=== PATIENT | female | born 1970 | race Caucasian/White ===

== ENCOUNTER 2016-11-25 10:00 | Inpatient (IN) | payer BC ==
[~2016-11-25] VITALS: Ht 162.6 cm; Wt 73.2 kg
[~2016-11-25 10:00] MED LIST: /PANT40TA PO; AMIT10TA PO; CEPH500C PO; DOCU100C PO; FERR325T3 PO; FOLI1TAB86 PO; FURO40TA2 PO; GABA100C PO; K-TA1TAB PO; KEFL500C7 PO; LACTSOL16 PO; LASI40TA PO; LYRI200C PO; METF1000 PO; MIRA3350 PO; MORP-38 PO; MULT1TAB8 PO; MUPI2OI TOP; NORT25CA2 PO; OXYCO5TA PO; PERC5TAB6 PO; POTA-77 PO; SENN8.6T7 PO; SPIR100T PO; SPIR50TA2 PO; SULF1TAB72 PO; TEFL600I IV; TORS20TA2 PO; TRAD5TAB PO; TRAM50TA2 PO; ULTR50TA PO; ZOFR20TA PO; [UNRECOGNIZED DRUG - CODE] PO
[2016-11-25] MEDS ORDERED: PROPOFOL 200 MG/20 ML VIAL As Ordered ONE (10:28)
[2016-11-25] MEDS ORDERED: ONDANSETRON 4MG/2ML VIAL (J2405) As Ordered ONE (10:28)
[2016-11-25] MEDS ORDERED: MIDAZOLAM INJ 2 MG/2 ML VIAL (J2250) As Ordered ONE (10:28)
[2016-11-25] MEDS ORDERED: fentaNYL 100 MCG/2 ML INJECTION (J3010) As Ordered ONE (10:28)
[2016-11-25] MEDS ORDERED: VANCOMYCIN HCL 1,000 MG, VIAL MATE ADAPTER 1 EACH in D5W 250 ML IV ONE (10:30)
[2016-11-25] MEDS ORDERED: LIDOCAINE 2% INJ 100 MG/5 ML SDV (FOR ANES.) As Ordered ONE (10:32)
[2016-11-25] MEDS ORDERED: LIDOCAINE 1% SDV INJ 30 ML VIAL As Ordered ONE (10:51)
[2016-11-25] MEDS ORDERED: BUPIVACAINE HCL 0.5% 30 ML VIAL As Ordered ONE (10:52)
[2016-11-25] MEDS ORDERED: dexameTHASONE 4 MG/ML 1ML VIAL (J1100) As Ordered ONE (12:25)
[2016-11-25] MEDS ORDERED: ePHEDrine SULFATE 25 MG/5 ML(5MG/ML) SYRINGE As Ordered ONE (12:32)
--- NOTE | 2016-11-25 14:58 | HPEPDOC ---
Medical History and Physical Date of Admission 11/25/2016 History and Physical HISTORY AND PHYSICAL Date of admission: 11/25/2016 PCP: residency clinic Chief complaint: Amputation of foot HPI: 46-year-old female with diabetes mellitus type 2, alcoholic liver disease and hepatitis C causing cirrhosis and varices, diabetic neuropathy, history of paroxysmal SVT status post ablation in 2013, history of osteomyelitis of the left foot who is undergoing right transmetatarsal amputation with Dr. Sullivan. We have been contacted by Dr. Sullivan that he would like the patient admitted to the hospital following her surgery today. This amputation is being completed secondary to osteomyelitis of the right foot. The patient is seen postoperatively in the recovery room. She is tearful and upset about having to have her foot amputated, but otherwise feels well. Past medical history: Diabetes mellitus type 2, diabetic neuropathy, alcoholic liver disease and hepatitis C causing cirrhosis and varices, history of paroxysmal SVT status post ablation in 2013, history of MRSA osteomyelitis of the left foot Past surgical history: I&D of the left foot, BTL, cardiac ablation Family history: Father with lung cancer; mother, siblings, and children are alive and well Social history: The patient is and resides in [place]. She has 2 children. She quit drinking approximately 2 years ago, but was previously a heavy drinker. She smokes half a pack a day. She has a history of cocaine and IV heroin use, but none in the last several years. Allergies: No known drug allergies Review of systems: General: Negative for fever and chills Eyes: Negative for vision changes and ocular discharge ENT: Negative for sore throat and nose bleed Cardiovascular: Negative for chest pain and palpitations Respiratory: Negative for cough and shortness of breath GI: Negative for nausea, vomiting, diarrhea, constipation Musculoskeletal: Negative for neck and back pain Skin: Negative for rash Neuro: Negative for headache and dizziness Psych: Negative for suicidal ideation and depression Endocrine: Negative for polyuria : Negative for dysuria Heme: Negative for bruising and bleeding Home meds: See below Physical exam: Vital signs: Blood pressure 114/69, HR 82, temperature 98.7, O2 sat and 84% on 2 L, RR 16 Gen.: awake, alert, no acute distress Eyes: Extraocular movements intact, normal sclera ENT: Moist mucous membranes Cardiovascular: RRR, no murmurs rubs or gallops Lungs: clear to auscultation bilaterally, no rales, rhonchi, or wheeze Abdomen: Soft, NT/ND, normal BS Extremities: No peripheral edema on LLE, RLE is wrapped and splinted Neuro: alert and oriented 3, normal speech, no focal deficits Psych: tearful, disappointed about losing part of her foot Labs and radiology: Preoperative labs approximately 2 weeks ago were unremarkable. An A1c at that time was 5.9. Assessment and plan: 46-year-old female with diabetes mellitus type 2, alcoholic liver disease and hepatitis C causing cirrhosis and varices, diabetic neuropathy, history of paroxysmal SVT status post ablation in 2013, history of osteomyelitis of the left foot who is undergoing right transmetatarsal amputation with Dr. Sullivan secondary to osteomyelitis of the right foot. 1. Osteomyelitis of the right foot: Status post right transmetatarsal amputation with Dr. Sullivan today. I discussed the case with Dr. Sullivan, and he states that he will be managing antibiotics for this patient and working with Dr. Lancaster. 2. Diabetes mellitus type 2 with neuropathy: A1c 2 weeks ago was 5.9. We will use sliding scale insulin while in-house. We will hold home metformin, and we' ll consider restarting these once the patient has a chance to recover from her recent surgery. Continue home Lyrica for neuropathy. 3. Alcoholic liver disease and hepatitis C causing cirrhosis and varices: The patient follows with Dr. Lancaster for her hepatitis C and states that she is now s/ p treatment with no further evidence of presence of the virus. Continue home torsemide and spironolactone. DVT prophylaxis: Lovenox to begin tomorrow morning per my discussion with Dr. Sullivan; SCD on LLE tonight Dispo: admit as an inpatient to the service of Dr. Mallory CODE STATUS: DNI Vital Signs see above Laboratory Data Labs 24H Laboratory Tests 2 11/25/16 11:07: Bedside Glucose (Misc Panel) 99 FSBS Laboratory Tests Test 11/25/16 11:07 Range/Units Bedside Glucose (Misc Panel) 99 70-105 MG/DL Microbiology Microbiology 11/25/16 Wound Culture, Received Pending 11/25/16 Wound Culture, Received Pending Home Medications Scheduled (Multi Vitamin Daily) 1 Tab Tab 1 TAB PO DAILY Docusate Sod/Senna (Senna S 8.6-50 mg) 1 Tab Tab 3 TAB PO BID Metformin Hydrochloride (Metformin HCl) 1,000 Mg Tab 1,000 MG PO BID Morphine Sulfate (Morphine Sulfate ER) 15 Mg Tab 15 MG PO BID Oxycodone HCl (Oxycodone HCl) 5 Mg Tab 5 MG PO Q4H Pregabalin (Lyrica) 200 Mg Cap 600 MG PO BID Spironolactone (Spironolactone) 50 Mg Tab 50 MG PO DAILY Torsemide (Torsemide) 20 Mg Tab 60 MG PO DAILY Trimethoprim/Sulfamethoxazole (Sulfamethoxazole/Trimetho 400-80 mg) 1 Ea Tab 1 EA PO BID Scheduled PRN Tramadol HCl (Tramadol HCl) 50 Mg Tab 50 MG PO Q4H PRN PRN PAIN MAY TAKE 2 TABLETS IF NEEDED Allergies Coded Allergies: No Known Drug Allergy (Unverified Allergy, Unknown, 02/22/13) LUL VIEIRA Nov 25, 2016 14:58
[2016-11-25] MEDS ORDERED: ONDANSETRON 4MG/2ML VIAL (J2405) IV PRN ×2 (15:00)
[2016-11-25] MEDS ORDERED: fentaNYL 100 MCG/2 ML INJECTION (J3010) IV PRN (15:00)
[2016-11-25] MEDS ORDERED: PERCOCET 5MG/325MG TAB PO PRN ×2 (15:00)
[2016-11-25] MEDS ORDERED: GLUCOSE 4 GM CHEW TABLET PO PRN (15:00)
[2016-11-25] MEDS ORDERED: DEXTROSE 50% 50 ML SYRINGE IV PRN (15:00)
[2016-11-25] MEDS ORDERED: LR 1,000 ML IV SCH (15:00)
[2016-11-25] MEDS ORDERED: GLUCAGON FOR INJ 1 MG VIAL (J1610) SC PRN (15:00)
[2016-11-25] MEDS ORDERED: ONDANSETRON 4 MG TAB (S0181) PO PRN (15:00)
--- NOTE | 2016-11-25 15:54 | PHACANCOPD ---
PHARMACY VANCOMYCIN DOSING Pt Demographics Demographics Patient Age:46 , Weight: , Gender: female Adjusted Body Weight Date: 11/25/16, Adjusted Body Weight: Kg Events Past 24 Hours Events Past 24 Hours: NO: Change in CrCl, Dialysis, Diuretic Therapy, Elevation in WBC, Fever, Other, Pending Diagnostics, Pending Procedures Vancomycin Vancomycin Load Y/N: Yes Load Dose Date Time Vancomycin Load Dose: 1000MG Date: 11/25/16 Time: 1030 Vancomycin Dose Date: 11/25/16. Current Vancomycin Dose: [1GM Q12H@17] Intermittent Dosing?: No Labs Micro Microbiology 11/25/16 Wound Culture, Received Pending 11/25/16 Wound Culture, Received Pending Creatinine Clearance Date:11/25/16. Creatinine Clearance: . Assessment and Plan Maintaining Current Dose?: Yes Reason for dose change: No Dose Change Pharmacist Note Pharmacist Note Date: 11/25/16. Pharmacist note: This is a post operative patient's of Dr. Sullivan' s. He consulted us via written orders. She is a diabetic with a history of MRSA at our facility. She has been on Vancomycin here, and in February she was maintained on Vancomycin 1gm IV q12h. She received 1 gram of Vancomycin pre-op , then we started her on Vancomycin 1gm IV q12h at 1700. This will essentially serve as her load. There is no H&P at this time, and no baseline labs. Dr. Lancaster has also been consulted on this patient. We will continue to follow this patient and make adjustments as necessary. DANIA BOLIVAR PHARMACY Nov 25, 2016 15:54
[2016-11-25] MEDS: PERCOCET 5MG/325MG TAB PO PRN ×2 (15:57→19:55)
[2016-11-25 16:25] VITALS: BP 104/60
--- NOTE | 2016-11-25 16:43 | REP ---
Clinical: Osteomyelitis for partial amputation. Technique: Three intraoperative fluoroscopic images. Findings: Intraoperative fluoroscopic images demonstrate the patient to be status post amputation at the level of the metatarsal bases. Impression: Evidence for amputation at the proximal metatarsal base level. Signed by Damien Almonte MD 11/25/2016 04:35 P
[2016-11-25 17:00] VITALS: BP 111/60
[2016-11-25] MEDS: HumaLOG INSULIN (NovoLOG) PER UNIT SC SCH ×2 (17:48→20:57)
[2016-11-25] MEDS: VANCOMYCIN HCL 1,000 MG, VIAL MATE ADAPTER 1 EACH in D5W 250 ML IV SCH (17:48)
[2016-11-25 18:00] VITALS: BP 106/55
[2016-11-25] MEDS ORDERED: BACT800T5 PO (18:11)
[2016-11-25 19:00] VITALS: BP 117/62
[2016-11-25] MEDS: MORPHINE 2 MG/ML 1ML SYRINGE IV PRN ×3 (19:16→23:27)
--- NOTE | 2016-11-25 19:35 | RO ---
DATE OF PROCEDURE: 11/25/2016 PREPROCEDURE DIAGNOSES: Right foot diabetic ulceration stage 4 with osteomyelitis and fractured metatarsals 2, 3, and 4. POSTPROCEDURE DIAGNOSES: Right foot diabetic ulceration stage 4 with osteomyelitis and fractured metatarsals 2, 3, and 4. PROCEDURE: Right foot transmetatarsal amputation. SURGEON: Devon Sullivan DPM SUPERMARKET MANAGER: None. ANESTHESIA: General. HEMOSTASIS: Pneumatic ankle tourniquet. ESTIMATED BLOOD LOSS: 100 mL. SPECIMENS: Amputation bone and tissue for pathology and culture aerobic and anaerobic and clean margin first metatarsal base for aerobic and anaerobic and pathology. MATERIALS: #2-0 and #3-0 nylon. INJECTABLES: None. COMPLICATIONS: None. CONDITION: Stable. Dalila Augustin is a 46-year-old female who presents with ulceration and osteomyelitis to her right foot. She has had multiple infections and amputations including osteomyelitis noted in the 1st and 5th metatarsals with subsequent amputation of these. There have been several instances of non compliance with offloading where patient returned to her normal shoegear instead of wearing the dispensed post surgical shoe and crutches. Following the most recent amputation she sustained neuratrophic fractures of metatarsals 2, 3, and 4. Approximately one week lateral where was a probing ulceration to the 3rd metatarsal with bone exposed in the wound. Due to infection involved in the remaining central metatarsal, compound with the fracture of the metatarsals 2, 3, and 4, there was no reasonable alternative other than transmetatarsal amputation which patient has agreed to as treatment for this foot infection. The patients site and side were identified and marked in the preoperative holding area. Consent was reviewed and obtained. All risks, complications and alternatives to the procedure were explained to the patient in detail. Postoperative course was discussed with patient including potential for further infection, potential for need for further surgery following this procedure. Patient understands and agrees. DESCRIPTION OF PROCEDURE: The patient was brought to the operating room and placed on the operating room table in supine position. General anesthesia was delivered by the anesthesia team. A preoperative injection of 20 mL of 1:1 mixture of 1% lidocaine plain and 0.5% Marcaine plain was injected. Patient received vancomycin preoperatively. The right foot was prepped and draped in a normal sterile fashion. A tourniquet was applied and inflated at 250 mmHg. A fishmouth type incision was made surrounding the metatarsals leaving a longer plantar surface. This was carried through with a #10-blade down to bone. The soft-tissues overlying the bone were freed. The fractures were noted at the metatarsal sites 2, 3, and 4. A C-ARM was used to identify the level at which the amputation was to be performed. After remaining soft-tissue attachments were freed, the bones 2, 3, and 4 of the metatarsals were resected with a sagittal saw. This allowed disarticulation of the forefoot which was then sent for pathology and culture aerobic and anaerobic. The 3rd metatarsal bone was used for the culture which was the bone from the penetrating ulcer. Next, the remaining portion of the 1st metatarsal which had been previously resected was inspected and appeared soft. The distal portion of this bone was resected with sagittal saw and sent for pathology and culture. The remaining portion of the 5th metatarsal was inspected and this appeared to be in good condition. The remaining metatarsal bases of 2, 3, and 4 following the resection were also in good condition. Necrotic tissue and other soft-tissue was debrided free of the wound, at which time the tourniquet was deflated. Pressure was held for 5 minutes and then hemostasis was obtained using Bovie and sutures. A SONNY drain was inserted and the incision was closed using #2-0 and #3-0 nylon. Sterile dressings were applied. Patient was placed in a posterior splint. She was brought back to the postanesthesia care unit (PACU) with vital signs stable and neurovascular status intact. She will be admitted for antibiotics and postoperative monitoring. Will consult infectious disease regarding outpatient antibiotic therapy. Suspect will need 6 weeks therapy. JESUS
[2016-11-25 20:00] VITALS: BP 106/56
[2016-11-25 21:00] VITALS: BP 106/61
[2016-11-25] MEDS ORDERED: traMADol 50 MG TAB PO PRN (21:00)
[2016-11-25] MEDS ORDERED: PREGABALIN 100 MG CAP (LYRICA) PO SCH (21:00)
[2016-11-25] MEDS: SENOKOT S TAB PO SCH (21:23)
[2016-11-25] MEDS: PREGABALIN 100 MG CAP (LYRICA) PO SCH (21:24)
[2016-11-26] VITALS: BP 102/61
[2016-11-26] MEDS: PERCOCET 5MG/325MG TAB PO PRN ×5 (00:23→18:20)
[2016-11-26] MEDS: MORPHINE 2 MG/ML 1ML SYRINGE IV PRN ×5 (03:35→20:35)
[2016-11-26 04:00] VITALS: BP 98/56
[2016-11-26] MEDS: VANCOMYCIN HCL 1,000 MG, VIAL MATE ADAPTER 1 EACH in D5W 250 ML IV SCH ×2 (04:59→16:29)
[2016-11-26 07:23] LABS: BASO % 0.3 % (0.0-1.0); EOS # 0.1 K/mm3 (0.0-0.50); EOS % 1.9 % (0.0-3.0); LARGE UNSTAINED CELL # 0.2 K/mm3 (0.0-0.4); LARGE UNSTAINED CELL % 2.4 % (0.0-4.0); LYMPH # 1.8 K/mm3 (1.5-4.5); MEAN CORPUSCULAR HEMOGLOBIN 26.1 pg (27.0-33.0); MEAN CORPUSCULAR HGB CONC 32.7 g/dl (32.0-36.5); MEAN CORPUSCULAR VOLUME 79.8 fl (80.0-96.0); MONO # 0.5 K/mm3 (0.0-0.8); MONO % 7.9 % (0.0-5.0); NEUTROPHILS # 3.8 K/mm3 (1.8-7.7); NEUTROPHILS % 59.4 % (36.0-66.0); PLATELET COUNT, AUTOMATED 211 k/mm3 (150-450); RED CELL DISTRIBUTION WIDTH 17.3 % (11.5-14.5); WHITE BLOOD COUNT 6.4 K/mm3 (4.0-10.0)
[2016-11-26] MEDS: HumaLOG INSULIN (NovoLOG) PER UNIT SC SCH ×4 (07:30→20:49)
[2016-11-26 07:53] LABS: BLOOD UREA NITROGEN 10 MG/DL (7-18); CREATININE FOR GFR 0.59 MG/DL (0.55-1.02); GLUCOSE, FASTING 94 MG/DL (70-105)
[2016-11-26 07:54] LABS: ALBUMIN 2.8 GM/DL (3.2-5.2); ALBUMIN/GLOBULIN RATIO 0.76 (1.00-1.93); ALKALINE PHOSPHATASE 94 U/L (45-117); ALT/SGPT 12 U/L (12-78); ANION GAP 11 MEQ/L (8-16); AST/SGOT 11 U/L (15-37); BILIRUBIN,TOTAL 0.3 MG/DL (0.2-1.0); CARBON DIOXIDE LEVEL 23 MEQ/L (21-32); CHLORIDE LEVEL 109 MEQ/L (98-107); GLOMERULAR FILTRATION RATE > 60.0 (>58); MAGNESIUM LEVEL 2.2 MG/DL (1.8-2.4); SODIUM LEVEL 143 MEQ/L (136-145); TOTAL PROTEIN 6.5 GM/DL (6.4-8.2)
[2016-11-26 08:00] VITALS: BP 109/71
[2016-11-26] MEDS: SENOKOT S TAB PO SCH ×2 (08:09→20:37)
[2016-11-26] MEDS: PREGABALIN 100 MG CAP (LYRICA) PO SCH ×2 (08:09→20:38)
[2016-11-26] MEDS: ENOXAPARIN 40 MG/0.4 ML SYRINGE (J1650) SC SCH (08:10)
[2016-11-26] MEDS ORDERED: SPIRONOLACTONE 50 MG TAB PO SCH (09:00)
[2016-11-26] MEDS ORDERED: TORSEMIDE 20 MG TAB PO SCH (09:00)
--- NOTE | 2016-11-26 12:37 | IPN ---
DATE OF ADMISSION: 11/26/2016 The patient seen and examined at bedside. Her family is present. She denies overnight nausea, vomiting, fever, or chills. She states she is having pain requiring the morphine. She states that the morphine helps but is not lasting long enough. Vital signs are examined. The patient afebrile overnight. Laboratories done this morning. Hemoglobin is 9.2. White blood cell count is 6.4. Microbiology and pathology from the operating room are pending. The Sebas-Swann (SONNY) drain has 20 mL drainage from today. Lower extremity examination: Splint and dressing are clean, dry, and intact without signs of strike-through. Drain is in place with sanguinous drainage noted. The left foot is inspected. Small callus noted at the plantar 1st metatarsal. ASSESSMENT: This is a 46-year-old female, status post right transmetatarsal amputation. PLAN: Continue her vancomycin. Infectious disease has been consulted. Will appreciate their antibiotic recommendations. Await culture results and pathology results from operating room. Most likely, will plan to remove drain tomorrow and change dressings at that time. She is to remain nonweightbearing with splint and walker. Will follow.
[2016-11-26] MEDS: LACTIC ACID 12% LOTION 225 GM BTL TOP SCH (14:06)
[2016-11-26] MEDS ORDERED: MORPHINE 2 MG/ML 1ML SYRINGE IV PRN (15:00)
[2016-11-26 16:00] VITALS: BP 99/58
--- NOTE | 2016-11-26 16:34 | REP ---
Procedure: PICC line insertion with Mickey The procedure was performed under the direct supervision of Dr. Car. The risks and benefits of the procedure were explained to the patient and informed consent was obtained. The right basilic vein was localized using ultrasound guidance. The skin was prepped and draped in a sterile fashion. 2% lidocaine was used as a local anesthetic. Using ultrasound guidance the basilic vein was cannulated and a 0.018 guidewire was inserted and advanced to the SVC using fluoroscopic guidance. The needle was removed and a 4.5 Romanian dilator and peel-away sheath was inserted over the guide wire. A 4.5 Romanian single lumen catheter was cut to length of 40 cm. The dilator was removed and the catheter was inserted over the guide wire with the tip ending in the SVC. The peel-away sheath was removed and the catheter was flushed with heparinized saline as per Hospital protocol. The catheter was affixed to the skin and a sterile dressing was applied. The the patient tolerated the procedure well and there were no immediate complications. 24 seconds of fluoro time was utilized for this procedure. Reviewed by JARETT Pereira 11/26/2016 04:17 PSigned by Adama Car MD 11/26/2016 04:25 P
--- NOTE | 2016-11-26 16:58 | IPNPDOC ---
Text Note Date of Service The patient was seen on 11/26/16 at 16:53. NOTE Subjective: Patient states she feels much better. Denies any complaints. States pain is better controlled. Objective: Vitals: (see below) General: No acute distress, laying comfortably in bed. HEENT: Moist mucous membranes. Neck: No JVD or lymphadenopathy Cardiac: RRR, No murmurs Pulm: Clear to auscultation b/l. No wheezing, rhonchi Abd: NT/ND + BS Ext: No edema or cyanosis. Right lower extremity wrapped, with SONNY Leatha intact draining serosanguineous fluid. Distal pulses intact. Labs (see below) Assessment/Plan 1. Osteomyelitis of the right foot. Status post right transmetatarsal amputations by Dr. Sullivan 09/25/17. Dr. Lancaster has been consulted. Continue current antibiotics. 2. Diabetes mellitus- A1c 5.92 weeks ago per medical records. Sliding-scale counseling. On Lyrica for neuropathy. 3. History of hepatitis C- follows with Dr. Lancaster outpatient 4. 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 Patient is on torsemide as well as spironolactone, which were held given her relative hypotension. We'll reevaluate tomorrow. 5. History of paroxysmal SVT status post ablation 2013 CODE STATUS DNI. DVT prophy: Lovenox per Dr. Sullivan VS,Christina, I+O VS, Christina, I+O Laboratory Tests 11/26/16 06:38 Calcium Level 8.0 L, Aspartate Amino Transf (AST/SGOT) 11 L, Alanine Aminotransferase (ALT/SGPT) 12, Alkaline Phosphatase 94, Total Bilirubin 0.3, Total Protein 6.5, Albumin 2.8 L, Red Blood Count 3.50 L, Mean Corpuscular Volume 79.8 L, Mean Corpuscular Hemoglobin 26.1 L, Mean Corpuscular Hemoglobin Concent 32.7, Red Cell Distribution Width 17.3 H, Neutrophils (%) (Auto) 59.4, Lymphocytes (%) (Auto) 28.0, Monocytes (%) (Auto) 7.9 H, Eosinophils (%) (Auto) 1.9, Basophils (%) (Auto) 0.3, Neutrophils # (Auto) 3.8, Lymphocytes # (Auto) 1.8, Monocytes # (Auto) 0.5, Eosinophils # (Auto) 0.1, Basophils # (Auto) 0.0 Vital Signs Date Time Temp Pulse Resp B/P Pulse Ox O2 Delivery O2 Flow Rate FiO2 11/26/16 16:29 18 11/26/16 09:00 Room Air 11/26/16 08:00 97.2 75 109/71 98 11/25/16 14:16 2 I&O- Last 24 Hours up to 6 AM 11/26/16 05:59 Intake Total 2760 ml Output Total 1915 ml Balance 845 ml DARLENE SIMS MD Nov 26, 2016 16:58
[2016-11-26] MEDS: SODIUM CHLORIDE 0.9% INJ 10 ML SYR IV SCH (18:08)
[2016-11-26 20:00] VITALS: BP 94/52
[2016-11-26] MEDS: SODIUM CHLORIDE 0.9% INJ 10 ML SYR IV PRN (20:36)
[2016-11-27] VITALS: BP 102/58
[2016-11-27] MEDS: MORPHINE 2 MG/ML 1ML SYRINGE IV PRN ×6 (03:02→21:48)
[2016-11-27 04:00] VITALS: BP 104/64
[2016-11-27] MEDS: PERCOCET 5MG/325MG TAB PO PRN ×5 (04:02→22:28)
[2016-11-27] MEDS: VANCOMYCIN HCL 1,000 MG, VIAL MATE ADAPTER 1 EACH in D5W 250 ML IV SCH ×2 (04:15→16:18)
--- NOTE | 2016-11-27 04:59 | CR ---
DATE OF CONSULTATION: 11/26/2016 I was asked to consult by Dr. Sullivan for evaluation of chronic osteomyelitis of the right foot and need for intravenous (IV) antibiotic. Culture positive for methicillin-resistant Staphylococcus aureus (MRSA). HISTORY OF PRESENT ILLNESS: Dalila is a 46-year-old female with diabetes type 2 fairly well controlled on metformin, who has had chronic diabetic foot ulcers of the right foot for many months. She initially had an amputation of her toes where she has chronic MRSA infection, but she continued to develop new infections and developed an abscess on the ball of her foot with no resolution in spite of being on chronic Bactrim therapy for 2-3 months. The patient finally agreed to having a transmetatarsal amputation which she had yesterday. She denies any fever or chills. No nausea, vomiting or diarrhea. No abdominal pain. She states her diabetes has been very well controlled since she quit drinking any alcohol. PAST MEDICAL HISTORY: Significant for diabetes type 2 with diabetic neuropathy, alcoholic liver disease, quit drinking over a year ago. History of hepatitis C, treated and cured from hepatitis C with SVR12. History of paroxysmal supraventricular tachycardia status post ablation 2013, history of MRSA osteomyelitis of the left foot which was treated in February 2016 and resolved and now of the right foot. PAST SURGICAL HISTORY: Incision and drainage (I and D) of left foot, bilateral tubal ligation, cardiac ablation. The patient is also being evaluated for a dorsal column stimulator once her infections are completely healed. FAMILY HISTORY: Lung cancer in her father. SOCIAL HISTORY: She is . She lives in [place] with her . She has two children. She quit drinking over a year ago, but previously was a heavy drinker. She smokes half a pack a day. She has a history of cocaine and IV heroin use in the past. ALLERGIES: No known drug allergies. REVIEW OF SYSTEMS: She denies any fever or chills. No nausea, vomiting or diarrhea. No cough or shortness of breath. No neck pain, back pain. She does complain of significant pain in her foot at the site of the transmetatarsal amputation. MEDICATIONS: - morphine 2 mg IV every 2 as needed - Lovenox 40 mg subcutaneously daily - lactic acid applied to left foot callus - insulin sliding scale - Lyrica 300 mg by mouth twice a day - Senokot three tablets by mouth twice a day - Ultram 50 mg by mouth every 4 as needed - vancomycin 1 gram IV every 12 hours - Percocet 1-2 tablets every 4 as needed pain - Zofran 4 mg IV every 6 as needed for nausea LABORATORY DATA: White count on 11/26 was 6.4, hemoglobin 9.2, hematocrit 28, platelets 211. Sodium 143, potassium 4, chloride 109, bicarbonate 23, BUN 10, creatinine 0.59, glucose 94, calcium 8, magnesium 2.2, total bilirubin 0.3, AST 11, ALT 12, alkaline phosphatase 94, total protein 6.5, albumin 2.8. Wound culture from intraoperatively are still pending. Pathology on bone is pending. Foot x-ray done on 11/25 shows evidence of amputation at the proximal metatarsal base level. This was done postoperatively. Peripherally inserted central catheter (PICC) line was placed this afternoon at 4:15. IMPRESSION: This is a 46-year-old female with a history of chronic methicillin-resistant Staphylococcus aureus (MRSA) osteomyelitis and abscess of the right foot status post transmetatarsal amputation. Dr. Sullivan was concerned that the margins were not clear after he finished the surgery and therefore, recommended intravenous (IV) antibiotics for MRSA infection. The patient preoperatively had the right foot ulceration stage IV with osteomyelitis and fractured metatarsal of two, three and four. PLAN: PICC line was ordered and placed already today. The patient is currently on IV vancomycin 1 gram every 12 hours. Will obtain vancomycin level tomorrow. The patient has done IV antibiotics at home in the past last year and done well. Will consult patient and family services (PFS) for home IV antibiotics. The patient will probably need 4-6 weeks of IV antibiotic depending on her clinical improvement. Will follow her as an outpatient. She will have blood work done weekly including CBC basic, CRP.
[2016-11-27] MEDS: SODIUM CHLORIDE 0.9% INJ 10 ML SYR IV SCH ×2 (05:17→18:11)
[2016-11-27 05:58] LABS: BASO % 0.3 % (0.0-1.0); EOS # 0.2 K/mm3 (0.0-0.50); LARGE UNSTAINED CELL # 0.1 K/mm3 (0.0-0.4); LARGE UNSTAINED CELL % 2.2 % (0.0-4.0); LYMPH % 34.5 % (24.0-44.0); MEAN CORPUSCULAR HEMOGLOBIN 25.5 pg (27.0-33.0); MEAN CORPUSCULAR HGB CONC 31.4 g/dl (32.0-36.5); MEAN CORPUSCULAR VOLUME 81.2 fl (80.0-96.0); MONO # 0.4 K/mm3 (0.0-0.8); MONO % 6.4 % (0.0-5.0); NEUTROPHILS % 53.6 % (36.0-66.0); PLATELET COUNT, AUTOMATED 172 k/mm3 (150-450); RED CELL DISTRIBUTION WIDTH 17.4 % (11.5-14.5); WHITE BLOOD COUNT 5.7 K/mm3 (4.0-10.0)
[2016-11-27 06:17] LABS: ALBUMIN 2.8 GM/DL (3.2-5.2); ALBUMIN/GLOBULIN RATIO 0.76 (1.00-1.93); ALKALINE PHOSPHATASE 84 U/L (45-117); ALT/SGPT 11 U/L (12-78); ANION GAP 7 MEQ/L (8-16); AST/SGOT 13 U/L (15-37); BILIRUBIN,TOTAL 0.2 MG/DL (0.2-1.0); BLOOD UREA NITROGEN 7 MG/DL (7-18); CALCIUM LEVEL 7.5 MG/DL (8.5-10.1); CARBON DIOXIDE LEVEL 25 MEQ/L (21-32); CHLORIDE LEVEL 109 MEQ/L (98-107); CREATININE FOR GFR 0.61 MG/DL (0.55-1.02); GLOMERULAR FILTRATION RATE > 60.0 (>58); GLUCOSE, FASTING 101 MG/DL (70-105); MAGNESIUM LEVEL 2.1 MG/DL (1.8-2.4); SODIUM LEVEL 141 MEQ/L (136-145); TOTAL PROTEIN 6.5 GM/DL (6.4-8.2)
[2016-11-27 06:36] LABS: ERYTHROCYTE SEDIMENTATION RATE 71 mm/hr (0-20)
[2016-11-27 08:00] VITALS: BP 91/53
[2016-11-27] MEDS: PREGABALIN 100 MG CAP (LYRICA) PO SCH ×2 (09:40→21:22)
[2016-11-27] MEDS: SENOKOT S TAB PO SCH ×2 (09:40→21:22)
[2016-11-27] MEDS: ENOXAPARIN 40 MG/0.4 ML SYRINGE (J1650) SC SCH (09:41)
[2016-11-27] MEDS: HumaLOG INSULIN (NovoLOG) PER UNIT SC SCH ×4 (09:41→21:00)
[2016-11-27] MEDS: LACTIC ACID 12% LOTION 225 GM BTL TOP SCH (09:42)
[2016-11-27] MEDS: SODIUM CHLORIDE 0.9% INJ 10 ML SYR IV PRN ×2 (09:57→14:20)
[2016-11-27 12:00] VITALS: BP 95/50
--- NOTE | 2016-11-27 12:27 | IPN ---
DATE OF ADMISSION: 11/27/2016 Patient seen and examined at the bedside. States pain is a little bit better than last night. He denies other overnight complaints. No nausea, vomiting, fever or chills. Vitals are examined. T-max is 99.4 with vitals stable. LABS: White blood cell count 5.7, hemoglobin 8.9, erythrocyte sedimentation rate was 71. CRP was 3.96. The drain yesterday put out 60 mL, 10 as of this morning. Pathology results are pending. Culture results grew staphylococcus aureus and corynebacterium from the amputation bone which was the third metatarsal. The clean margin at this point is pending. She has received her PICC line. Lower extremity examination: The splint remain clean, dry and intact. ASSESSMENT: 46-year-old female status post transmetatarsal amputation right foot. PLAN: Will plan dressing change and drain removal tomorrow prior to discharge. Will plan discharge with PICC line with antibiotics according to Dr. Lancaster. Appreciate input. She is to remain non-weight bearing to the right foot. She states she has been doing well with a walker. Will plan followup in my office early next Friday or Friday.
--- NOTE | 2016-11-27 17:19 | IPNPDOC ---
Text Note Date of Service The patient was seen on 11/27/16 at 17:18. NOTE Subjective: Patient denies any complaints. No acute changes overnight. Objective: Vitals: (see below) General: No acute distress, laying comfortably in bed. HEENT: Moist mucous membranes. Neck: No JVD or lymphadenopathy Cardiac: RRR, No murmurs Pulm: Clear to auscultation b/l. No wheezing, rhonchi Abd: NT/ND + BS Ext: No edema or cyanosis. Right lower extremity wrapped, with SONNY Leatha intact draining serosanguineous fluid. Distal pulses intact. Labs (see below) Assessment/Plan 1. Osteomyelitis of the right foot. Status post right transmetatarsal amputations by Dr. Sullivan 09/25/17. Dr. Lancaster has been consulted. Continue current antibiotics. Start IVF NS as pt's BP is borderline. 2. Diabetes mellitus- A1c 5.9 two weeks ago per medical records. Sliding-scale insulin. On Lyrica for neuropathy. 3. History of hepatitis C- follows with Dr. Lancaster outpatient 4. 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 Patient is on torsemide as well as spironolactone, which were held given her relative hypotension. 5. History of paroxysmal SVT status post ablation 2013 CODE STATUS DNI. DVT prophy: Lovenox per Dr. Sullivan VS,Christina, I+O VS, Christina, I+O Laboratory Tests 11/27/16 05:32 Calcium Level 7.5 L, Aspartate Amino Transf (AST/SGOT) 13 L, Alanine Aminotransferase (ALT/SGPT) 11 L, Alkaline Phosphatase 84, Total Bilirubin 0.2, Total Protein 6.5, Albumin 2.8 L, Red Blood Count 3.49 L, Mean Corpuscular Volume 81.2, Mean Corpuscular Hemoglobin 25.5 L, Mean Corpuscular Hemoglobin Concent 31.4 L, Red Cell Distribution Width 17.4 H, Neutrophils (%) (Auto) 53.6 , Lymphocytes (%) (Auto) 34.5, Monocytes (%) (Auto) 6.4 H, Eosinophils (%) (Auto ) 3.0, Basophils (%) (Auto) 0.3, Neutrophils # (Auto) 3.0, Lymphocytes # (Auto) 2.0, Monocytes # (Auto) 0.4, Eosinophils # (Auto) 0.2, Basophils # (Auto) 0.0 Vital Signs Date Time Temp Pulse Resp B/P Pulse Ox O2 Delivery O2 Flow Rate FiO2 11/27/16 16:00 98.7 78 18 99 Room Air 11/27/16 14:28 95/50 2.0 I&O- Last 24 Hours up to 6 AM 11/27/16 06:00 Intake Total 2860 ml Output Total 1570 ml Balance 1290 ml DARLENE SIMS MD Nov 27, 2016 17:19
[2016-11-27] MEDS ORDERED: VANCOMYCIN HCL 500 MG in D5W MINI-BAG PLUS 100 ML IV ONE (18:00)
[2016-11-27] MEDS: NS 1,000 ML IV SCH (18:38)
[2016-11-27 20:00] VITALS: BP 95/50
--- NOTE | 2016-11-27 21:54 | PHACANCOPD ---
PHARMACY VANCOMYCIN DOSING Pt Demographics Demographics Patient Age:46 , Weight:73.180 , Gender: female Adjusted Body Weight Events Past 24 Hours Events Past 24 Hours: NO: Change in CrCl, Dialysis, Diuretic Therapy, Elevation in WBC, Fever, Other, Pending Diagnostics, Pending Procedures Vancomycin Vancomycin Target Ranges: 15-20 mcg/ml Vancomycin Load Y/N: Yes Load Dose Date Time Vancomycin Load Dose: 1500 MG Date: 11/27/16 Time: 17:00 Vancomycin Dose Date: 11/26/16. INCREASE Current Vancomycin Dose TO: [1GM Q8H@02:00 11/28/16] Intermittent Dosing?: No Labs Labs Laboratory Tests Test 11/27/16 16:16 Vancomycin Level Trough 11.2UG/ML (10.0-20.0) Laboratory Tests 11/27/16 05:32 Calcium Level 7.5, Aspartate Amino Transf (AST/SGOT) 13, Alanine Aminotransferase (ALT/SGPT) 11, Alkaline Phosphatase 84, Total Bilirubin 0.2, Total Protein 6.5, Albumin 2.8, Red Blood Count 3.49, Mean Corpuscular Volume 81.2, Mean Corpuscular Hemoglobin 25.5, Mean Corpuscular Hemoglobin Concent 31.4 , Red Cell Distribution Width 17.4, Neutrophils (%) (Auto) 53.6, Lymphocytes (% ) (Auto) 34.5, Monocytes (%) (Auto) 6.4, Eosinophils (%) (Auto) 3.0, Basophils ( %) (Auto) 0.3, Neutrophils # (Auto) 3.0, Lymphocytes # (Auto) 2.0, Monocytes # ( Auto) 0.4, Eosinophils # (Auto) 0.2, Basophils # (Auto) 0.0 Micro Microbiology 11/25/16 Wound Culture - Preliminary, Resulted Staphylococcus Aureus Corynebacterium Species 11/25/16 Wound Culture, Received Pending Creatinine Clearance Date:11/27/16. Creatinine Clearance: [>70 ml/min]. Assessment and Plan Maintaining Current Dose?: No Reason for dose change: Trough too low Pharmacist Note Pharmacist Note Date: 11/25/16. Pharm.D. note: This is a post operative patient's of Dr. Sullivan' chastity. He consulted us via written orders. She is a diabetic with a history of MRSA at our facility. She has been on Vancomycin here, and in February she was maintained on Vancomycin 1gm IV q12h. She received 1 gram of Vancomycin pre-op , then we started her on Vancomycin 1gm IV q12h at 1700 11/25/16. TODAY A VANCO TROUGH DRAWN PRIOR TO HER NEXT DOSE = 11.2 (GOAL 15-20 mcg/ml) SHE WAS GIVEN A 1.5GM VANCO RELOAD AT 17:00 WHICH WILL BE FOLLOWED BY A INCREASE TO VANCO 1GM IV Q8H STARTING AT 02:00 ON 11/28/16. A VANCO TR WILL BE DRAW AFTER SHE REACHES STEADY STATE. SANDRA, Pharm.D. MARYANNECOUNTS INCLUDE 234 BEDS AT THE [facility] Nov 27, 2016 21:54
[2016-11-28] VITALS: BP 93/50
[2016-11-28] MEDS: PERCOCET 5MG/325MG TAB PO PRN ×3 (02:11→11:27)
[2016-11-28] MEDS: VANCOMYCIN HCL 1,000 MG, VIAL MATE ADAPTER 1 EACH in D5W 250 ML IV SCH ×2 (02:17→10:23)
[2016-11-28 04:00] VITALS: BP 97/57
[2016-11-28] MEDS: MORPHINE 2 MG/ML 1ML SYRINGE IV PRN ×2 (04:16→08:48)
[2016-11-28] MEDS: SODIUM CHLORIDE 0.9% INJ 10 ML SYR IV SCH (06:00)
[2016-11-28 07:26] LABS: BASO % 0.3 % (0.0-1.0); EOS # 0.2 K/mm3 (0.0-0.50); EOS % 4.8 % (0.0-3.0); LARGE UNSTAINED CELL # 0.1 K/mm3 (0.0-0.4); LARGE UNSTAINED CELL % 2.6 % (0.0-4.0); LYMPH # 1.7 K/mm3 (1.5-4.5); LYMPH % 39.5 % (24.0-44.0); MEAN CORPUSCULAR VOLUME 81.3 fl (80.0-96.0); MONO # 0.3 K/mm3 (0.0-0.8); NEUTROPHILS % 46.8 % (36.0-66.0); PLATELET COUNT, AUTOMATED 169 k/mm3 (150-450); RED CELL DISTRIBUTION WIDTH 17.2 % (11.5-14.5); WHITE BLOOD COUNT 4.3 K/mm3 (4.0-10.0)
[2016-11-28] MEDS: HumaLOG INSULIN (NovoLOG) PER UNIT SC SCH ×2 (07:30→12:00)
[2016-11-28 07:52] LABS: ALBUMIN 2.6 GM/DL (3.2-5.2); ALBUMIN/GLOBULIN RATIO 0.74 (1.00-1.93); ALKALINE PHOSPHATASE 84 U/L (45-117); ALT/SGPT 13 U/L (12-78); ANION GAP 6 MEQ/L (8-16); AST/SGOT 15 U/L (15-37); BILIRUBIN,TOTAL 0.1 MG/DL (0.2-1.0); BLOOD UREA NITROGEN 7 MG/DL (7-18); CALCIUM LEVEL 7.9 MG/DL (8.5-10.1); CARBON DIOXIDE LEVEL 24 MEQ/L (21-32); CHLORIDE LEVEL 116 MEQ/L (98-107); GLOMERULAR FILTRATION RATE > 60.0 (>58); GLUCOSE, FASTING 85 MG/DL (70-105); POTASSIUM SERUM 4.1 MEQ/L (3.5-5.1); SODIUM LEVEL 146 MEQ/L (136-145); TOTAL PROTEIN 6.1 GM/DL (6.4-8.2)
[2016-11-28 08:00] VITALS: BP 106/63
[2016-11-28] MEDS: ENOXAPARIN 40 MG/0.4 ML SYRINGE (J1650) SC SCH (08:49)
[2016-11-28] MEDS: LACTIC ACID 12% LOTION 225 GM BTL TOP SCH (08:49)
[2016-11-28] MEDS: PREGABALIN 100 MG CAP (LYRICA) PO SCH (08:49)
[2016-11-28] MEDS: SENOKOT S TAB PO SCH (08:49)
[2016-11-28] MEDS: NS 1,000 ML IV SCH ×2 (10:23→11:28)
[2016-11-28] MEDS ORDERED: SODIUM CHLORIDE 0.9% 1000 ML IV ONE ×2 (11:00→13:30)
[2016-11-28 11:45] VITALS: BP 114/59
--- NOTE | 2016-11-28 12:47 | IPN ---
DATE: 11/28/2016 Patient seen and examined at bedside. States the pain is somewhat better today. Denies overnight complaints. Denies nausea, vomiting, fever or chills. Vital signs: Patient is afebrile overnight. Maximum temperature (Tmax) 97.6. Current blood pressure 97/57. Labs: White blood cell count is 4.3, hemoglobin is 8.9, CRP is 3.41. Microbiology: The bone culture from the third metatarsal grew methicillin-resistant Staphylococcus aureus and corynebacterium. The clean margin from the first metatarsal grew coag negative staphylococcus. Pathology report: The forefoot amputation showed diffuse fatty change and focal fibrosis. No acute osteomyelitis and the bone of the first metatarsal showed a portion of bone with fibrofatty bone marrow suggestive of post inflammatory changes, no acute osteomyelitis. Lower extremity exam: The dressings were removed. Sutures are all intact. There is no sign of dehiscence. There is good capillary refill time to the flat margins. The swelling is improved compared to preoperatively. ASSESSMENT: This is a 46-year-old female status post transmetatarsal amputation. PLAN: Drain was removed. Dressings reapplied. Continue splint and nonweightbearing. She is okay to be discharged today. She will be discharged on vancomycin via peripherally inserted central catheter (PICC). Appreciate infectious disease input. She will followup in my office early next week. Edited: 11/28/2016 1248 tali
[2016-11-28 14:00] VITALS: BP 106/64
[2016-11-28] MEDS: SODIUM CHLORIDE 0.9% INJ 10 ML SYR IV PRN (14:45)
--- NOTE | 2016-11-28 18:33 | DS.PDOC ---
Discharge Summary General Date of Admission Nov 25, 2016 at 14:53 Date of Discharge Nov 28, 2016 at 15:21 Attending Physician: DARLENE SIMS MD Specialist/Consultants Involve: Loc Lancaster MD Specialist/Consultants Involve Dr. Sullivan Discharge Summary PROCEDURES PERFORMED DURING STAY: Amputation of the right foot metatarsals COMPLICATIONS/CHIEF COMPLAINT: Acute Osteomyelitis Right Foot ADMISSION/DISCHARGE DIAGNOSES: 1. Osteomyelitis of the right foot, status post metatarsal amputation 2. Diabetes mellitus 3. MRSA on cultures 4. History of hepatitis C with alcohol and liver disease- cirrhosis 5. History of paroxysmal SVT status post ablation 2013 HISTORY OF PRESENT ILLNESS/HOSPITAL COURSE: This is a 46-year-old female past history of diabetes mellitus who presents and admitted for osteomyelitis of her right foot. The patient was sent here by Dr. Pathak, and subsequently had amputation of metatarsals of her right foot. Patient was started on vancomycin given her previous cultures of MRSA. Patient was evaluated by , with continuation of the vancomycin. Giving her need to have prolonged course of antibiotics for 4-6 weeks, he PICC line was placed. The patient remained afebrile. Her diuretics were held at this time given her recent infection. This will need to be addressed in the outpatient setting of her blood pressure remained stable. I do appreciate Dr. Lancaster's assistance in her care as well as outpatient follow- up with her antibiotic management. DISCHARGE MEDICATIONS: Please see below. ALLERGIES: Please see below. PHYSICAL EXAMINATION ON DISCHARGE: VITAL SIGNS: Please see below. General: No acute distress, laying comfortably in bed. HEENT: Moist mucous membranes. Neck: No JVD or lymphadenopathy Cardiac: RRR, No murmurs Pulm: Clear to auscultation b/l. No wheezing, rhonchi Abd: NT/ND + BS Ext: No edema or cyanosis. Right lower extremity wrapped, with SONNY drain was removed by Dr. Sullivan. Distal pulses intact. LABORATORY DATA: Please see below. VTE Prophylaxis ordered?: Yes DISCHARGE CONDITION: Stable DISPOSITION: 01 Home, Self-Care ACTIVITY: As tolerated DIET: As tolerated ITEMS TO FOLLOWUP ON OUTPATIENT: 1. Patient will be sick receiving vancomycin through a PICC line. Antibiotics as well as labs have been ordered and will be managed by . DISCHARGE PLAN AND INSTRUCTIONS: 1. Follow-up with , Dr. Sullivan, and PCP in 1-2 weeks. TIME SPENT ON DISCHARGE: Greater than 30 minutes. Vital Signs/I&Os Vital Signs Date Time Temp Pulse Resp B/P Pulse Ox O2 Delivery O2 Flow Rate FiO2 11/28/16 14:00 106/64 11/28/16 12:00 97.4 83 18 98 Room Air 11/27/16 14:28 2.0 I&O- Last 24 Hours up to 6 AM 11/28/16 05:59 Intake Total 1980 ml Output Total 2760 ml Balance -780 ml Laboratory Data Labs 24H Laboratory Tests 2 11/27/16 20:27: Bedside Glucose (Misc Panel) 112H 11/28/16 06:25: Blood Urea Nitrogen 7, Creatinine 0.60, Sodium Level 146H, Potassium Level 4.1, Chloride Level 116H, Carbon Dioxide Level 24, Calcium Level 7.9L, Aspartate Amino Transf (AST/SGOT) 15, Alanine Aminotransferase (ALT/SGPT) 13, Alkaline Phosphatase 84, Total Bilirubin 0.1L, Total Protein 6.1L, Albumin 2.6L, Albumin/ Globulin Ratio 0.74L, Anion Gap 6L, White Blood Count 4.3, Red Blood Count 3.42L , Hemoglobin 8.9L, Hematocrit 27.8L, Mean Corpuscular Volume 81.3, Mean Corpuscular Hemoglobin 26.0L, Mean Corpuscular Hemoglobin Concent 32.0, Red Cell Distribution Width 17.2H, Platelet Count 169, Neutrophils (%) (Auto) 46.8, Lymphocytes (%) (Auto) 39.5, Monocytes (%) (Auto) 6.0H, Eosinophils (%) (Auto) 4.8H, Basophils (%) (Auto) 0.3, Neutrophils # (Auto) 2.0, Lymphocytes # (Auto) 1.7, Monocytes # (Auto) 0.3, Eosinophils # (Auto) 0.2, Basophils # (Auto) 0.0, C -Reactive Protein, Quantitative 3.41H, Glomerular Filtration Rate > 60.0, Large Unclassified Cells # 0.1, Large Unclassified Cells % 2.6, Magnesium Level 2.0 11/28/16 11:31: Bedside Glucose (Misc Panel) 168H CBC/BMP Laboratory Tests 11/28/16 06:25 Calcium Level 7.9 L, Aspartate Amino Transf (AST/SGOT) 15, Alanine Aminotransferase (ALT/SGPT) 13, Alkaline Phosphatase 84, Total Bilirubin 0.1 L, Total Protein 6.1 L, Albumin 2.6 L, Red Blood Count 3.42 L, Mean Corpuscular Volume 81.3, Mean Corpuscular Hemoglobin 26.0 L, Mean Corpuscular Hemoglobin Concent 32.0, Red Cell Distribution Width 17.2 H, Neutrophils (%) (Auto) 46.8, Lymphocytes (%) (Auto) 39.5, Monocytes (%) (Auto) 6.0 H, Eosinophils (%) (Auto) 4.8 H, Basophils (%) (Auto) 0.3, Neutrophils # (Auto) 2.0, Lymphocytes # (Auto) 1.7, Monocytes # (Auto) 0.3, Eosinophils # (Auto) 0.2, Basophils # (Auto) 0.0 FSBS Laboratory Tests Test 11/27/16 20:27 11/28/16 11:31 Range/Units Bedside Glucose (Misc Panel) 112 168 70-105 MG/DL Microbiology Microbiology 11/25/16 Wound Culture - Final, Complete Staph.aureus Methicillin Resis Corynebacterium Species 11/25/16 Wound Culture - Final, Complete Staphylococcus Sp Coag Neg Medications Scheduled (Multi Vitamin Daily) 1 Tab Tab 1 TAB PO DAILY Docusate Sod/Senna (Senna S 8.6-50 mg) 1 Tab Tab 3 TAB PO BID Metformin Hydrochloride (Metformin HCl) 1,000 Mg Tab 1,000 MG PO BID Morphine Sulfate (Morphine Sulfate ER) 15 Mg Tab 15 MG PO BID Pregabalin (Lyrica) 200 Mg Cap 600 MG PO BID Trimethoprim/Sulfamethoxazole (Bactrim Ds 800-160 mg) 1 Tab Tab 1 TAB PO BID Scheduled PRN Oxycodone HCl (Oxycodone HCl) 5 Mg Tab 5 MG PO Q4H PRN PRN PAIN Tramadol HCl (Tramadol HCl) 50 Mg Tab 50 MG PO Q4H PRN PRN PAIN MAY TAKE 2 TABLETS IF NEEDED Allergies Coded Allergies: No Known Drug Allergy (Unverified Allergy, Unknown, 02/22/13) DARLENE SIMS MD Nov 28, 2016 18:33
== END 2016-11-28 15:21 | disposition home or self-care (01) | DRG 305 ==
LOC: M SDC 10:00 → M PED 14:53
PROVIDERS: ADMIT Hospitalist; ATTEND Hospitalist
PROC: 0Y6M0Z7 Detachment at Right Foot, Complete 4th Ray, Open Approach (ICD-10-PCS; 2016-11-25)
PROC: 0Y6M0Z6 Detachment at Right Foot, Complete 3rd Ray, Open Approach (ICD-10-PCS; 2016-11-25)
PROC: 0Y6M0Z5 Detachment at Right Foot, Complete 2nd Ray, Open Approach (ICD-10-PCS; principal; 2016-11-25 11:40)
PROC: 02HV33Z Insertion of Infusion Device into Superior Vena Cava, Percutaneous Approach (ICD-10-PCS; 2016-11-26)
DX: M86.471 Chronic osteomyelitis with draining sinus, right ankle and foot (principal); E11.621 Type 2 diabetes mellitus with foot ulcer; E11.40 Type 2 diabetes mellitus with diabetic neuropathy, unspecified; K70.30 Alcoholic cirrhosis of liver without ascites; I47.1 Supraventricular tachycardia; M84.477A Pathological fracture, right toe(s), initial encounter for fracture; L97.514 Non-pressure chronic ulcer of other part of right foot with necrosis of bone; B95.62 Methicillin resistant Staphylococcus aureus infection as the cause of diseases classified elsewhere; F10.21 Alcohol dependence, in remission; F17.210 Nicotine dependence, cigarettes, uncomplicated; Z79.84 Long term (current) use of oral hypoglycemic drugs; Z86.14 Personal history of Methicillin resistant Staphylococcus aureus infection; Z80.1 Family history of malignant neoplasm of trachea, bronchus and lung; Z98.51 Tubal ligation status; Z86.19 Personal history of other infectious and parasitic diseases; Z79.899 Other long term (current) drug therapy

== ENCOUNTER → 2016-12-02 | Outpatient (REF) | payer BC ==
[~2016-12-02] MED LIST changes: +BACT800T5 PO; +OXYC-517 PO; -OXYCO5TA PO
[2016-12-02 15:02] LABS: ANION GAP 8 MEQ/L (8-16); BLOOD UREA NITROGEN 14 MG/DL (7-18); CALCIUM LEVEL 8.9 MG/DL (8.5-10.1); CARBON DIOXIDE LEVEL 27 MEQ/L (21-32); CHLORIDE LEVEL 103 MEQ/L (98-107); CREATININE FOR GFR 0.88 MG/DL (0.55-1.02); GLOMERULAR FILTRATION RATE > 60.0 (>58); GLUCOSE, FASTING 85 MG/DL (70-105); POTASSIUM SERUM 4.5 MEQ/L (3.5-5.1); SODIUM LEVEL 138 MEQ/L (136-145)
[2016-12-02 15:10] LABS: BASO % 0.2 % (0.0-1.0); EOS # 0.1 K/mm3 (0.0-0.50); EOS % 2.1 % (0.0-3.0); LARGE UNSTAINED CELL # 0.1 K/mm3 (0.0-0.4); LARGE UNSTAINED CELL % 1.6 % (0.0-4.0); LYMPH # 2.1 K/mm3 (1.5-4.5); LYMPH % 38.4 % (24.0-44.0); MEAN CORPUSCULAR HEMOGLOBIN 25.1 pg (27.0-33.0); MEAN CORPUSCULAR HGB CONC 31.4 g/dl (32.0-36.5); MEAN CORPUSCULAR VOLUME 79.9 fl (80.0-96.0); MONO # 0.3 K/mm3 (0.0-0.8); MONO % 6.3 % (0.0-5.0); NEUTROPHILS # 2.8 K/mm3 (1.8-7.7); NEUTROPHILS % 51.5 % (36.0-66.0); PLATELET COUNT, AUTOMATED 237 k/mm3 (150-450); RED CELL DISTRIBUTION WIDTH 17.2 % (11.5-14.5); WHITE BLOOD COUNT 5.5 K/mm3 (4.0-10.0)
== END ==
LOC: M LAB REF 13:06
PROVIDERS: ATTEND Internal Medicine Infectious Disease
DX: M86.8X7 Other osteomyelitis, ankle and foot (principal); B95.62 Methicillin resistant Staphylococcus aureus infection as the cause of diseases classified elsewhere

== ENCOUNTER → 2016-12-09 | Outpatient (REF) | payer BC ==
[2016-12-09 13:58] LABS: BASO % 0.4 % (0.0-1.0); EOS # 0.2 K/mm3 (0.0-0.50); LARGE UNSTAINED CELL # 0.1 K/mm3 (0.0-0.4); LARGE UNSTAINED CELL % 1.3 % (0.0-4.0); LYMPH # 1.5 K/mm3 (1.5-4.5); LYMPH % 18.2 % (24.0-44.0); MEAN CORPUSCULAR HEMOGLOBIN 25.4 pg (27.0-33.0); MEAN CORPUSCULAR VOLUME 79.3 fl (80.0-96.0); MONO # 0.6 K/mm3 (0.0-0.8); MONO % 7.5 % (0.0-5.0); NEUTROPHILS % 70.6 % (36.0-66.0); PLATELET COUNT, AUTOMATED 273 k/mm3 (150-450); RED CELL DISTRIBUTION WIDTH 16.9 % (11.5-14.5); WHITE BLOOD COUNT 8.4 K/mm3 (4.0-10.0)
[2016-12-09 14:37] LABS: ANION GAP 8 MEQ/L (8-16); BLOOD UREA NITROGEN 22 MG/DL (7-18); CALCIUM LEVEL 8.6 MG/DL (8.5-10.1); CARBON DIOXIDE LEVEL 26 MEQ/L (21-32); CHLORIDE LEVEL 106 MEQ/L (98-107); CREATININE FOR GFR 0.88 MG/DL (0.55-1.02); GLOMERULAR FILTRATION RATE > 60.0 (>58); GLUCOSE, FASTING 117 MG/DL (70-105); POTASSIUM SERUM 4.3 MEQ/L (3.5-5.1); SODIUM LEVEL 140 MEQ/L (136-145)
== END ==
LOC: M LAB REF 13:41
PROVIDERS: ATTEND Internal Medicine Infectious Disease
DX: M86.8X7 Other osteomyelitis, ankle and foot (principal); B95.62 Methicillin resistant Staphylococcus aureus infection as the cause of diseases classified elsewhere

== ENCOUNTER → 2016-12-13 | Outpatient (CLI) | payer BC ==
--- NOTE | 2016-12-23 00:29 | ECWPNPC ---
PATIENT NAME: ESTER DAMICO : 1970 GENDER: FEMALE VISIT DATE: 12/13/2016 DISCHARGE DATE: 12/13/16 1139 VISIT LOCKED DATE TIME: PHYSICIAN: HI THOMAS RESOURCE: HI THOMAS REASON FOR APPOINTMENT 1. FOOT PAIN HISTORY OF PRESENT ILLNESS HISTORY OF PRESENT ILLNESS: PAIN THE PATIENT DESCRIBES THE PAIN... 45 YEAR OLD FEMALE PATIENT WITH HISTORY OF CHRONIC FOOT PAIN. PATIENT DESCRIBES THE PAIN THROBBING AND FEELING SQUISHY WITH A PAIN SCORE OF 8/10. PATIENT IS CURRENTLY USING MORPHINE SULPHATE, GABAPENTIN, AND LYRICA TO HELP WITH THE PAIN BUT STATES THAT THE MEDICATION DOES NOT HELP ENOUGH. MRS. DAMICO STATES THAT HER FEET CONSTANTLY HURT AND SHE HAS YET TO FIND SOMETHING THAT HELPS WITH THE PAIN. PATIENT RECENTLY HAS PART OF THE FOOT AMPUTATED DUE TO IT NOT HEALING. MRS. DAMICO WOULD LIKE TO PROCEED WITH THE DCS TRIAL AFTER HER FOOT HAS HEALED. PATIENT DENIES UNEXPLAINABLE WEIGHT LOSS, FEVER, CHILLS, NEW CHANGES ON HER URINARY OR BOWEL CONTROL. FALL RISK SCREENING: SCREENING :NO FALLS IN THE PAST YEAR CURRENT MEDICATIONS TAKING VANCOMYCIN HCL 1000 MG SOLUTION RECONSTITUTED ONE APPLICATION INTRAVENOUS TWICE DAILY TAKING METFORMIN HCL 1000 MG TABLET 1 TABLET WITH MEALS ORALLY TWICE A DAY TAKING MIRALAX 1 PACKET 1 PACKET MIXED WITH 8 OUNCES OF FLUID ORALLY TWICE DAILY NEEDED TAKING SENNA S 8.6-50 MG TABLET 4-5 TABLETS ORALLY TWICE DAILY TAKING MORPHINE SULFATE ER 15 MG TABLET EXTENDED RELEASE 1 TABLET ORALLY EVERY 12 HRS MDD=2 PAIN CENTER TAKING MULTIVITAMINS VITAMIN CAPSULE 1 TAB(S) ORALLY DAILY TAKING TRAMADOL HCL 50 MG TABLET 1-2 TABLET NEEDED ORALLY EVERY 6 HRS (MDD:6) TAKING OXYCODONE-ACETAMINOPHEN 5-325 MG TABLET 1 TABLET NEEDED ORALLY EVERY 6 HRS, NOTES: DR CHAIDEZ MDD # 12 TAKING LYRICA 300 MG CAPSULE 1 CAPSULE ORALLY TWICE A DAY TAKING SPIRONOLACTONE 100 MG TABLET 1 TABLET ORALLY DAILY TAKING TORSEMIDE 20 MG TABLET 1.5 TABLETS ORALLY ONCE DAILY MEDICATION LIST REVIEWED AND RECONCILED WITH THE PATIENT PAST MEDICAL HISTORY HEPATITIS C CHRONIC GENOTYPE 1A VIRAL LOAD 14 MILLION IN 2007 TREATED WITH 3 MONTHS OF PEG-INTRON AND RIBAVIRIN WITH NONCOMPLIANCE 2007, TREATED WITH HARVONI FOR 6 MONTHS CURED ALCOHOLISM CIRRHOSIS WITH ASCITES AND LOWER EXTREMITY EDEMA, 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 MILD VARICES AND GASTROPATHY HISTORY OF IV DRUG USE QUIT 25 YEARS AGO SYPHILIS LIVER DECOMPENSATION CELLULITIS OF LEG WITHOUT FOOT, LEFT RIGHT 2ND, 3RD, 4TH TOES FX' PARTIAL RIGHT FOOT AMPUTATED ALLERGIES NONE BANDAIDES/TAPE: RASH SURGICAL HISTORY TUBAL LIGATION 1991 CARDIAC ABLATION [facility] 07/14/2014 ENDOSCOPY 3 SURGERIES ON FEET- REMOVAL OF PIECE OF BONE 04/01 I&D R FOOT 08/19/2016 RIGHT GREAT TOE JOINT REMOVED 08/2016 TOE REMOVED 11/2016 FAMILY HISTORY NO FAMILY HISTORY DOCUMENTED. SOCIAL HISTORY GENERAL: TOBACCO USE ARE YOU A:CURRENT SMOKER PATIENT COUNSELED ON THE DANGERS OF TOBACCO USE AND URGED TO QUIT:12/13/2016 ARE YOU INTERESTED IN QUITTING?NOT READY TO QUIT COUNSELED THE PATIENT ON SMOKING EFFECTS, EDUCATION LLNYITRE12/27/2017 LEARNING BARRIERS / SPECIAL NEEDS ORIENTED TO PLAN OF CARE: PATIENT, PAIN MANAGEMENT PATIENT, ORIENTED TO PLAN OF CARE: PATIENT, PAIN MANAGEMENT PATIENT, ORIENTED TO PLAN OF CARE: PATIENT, PAIN MANAGEMENT PATIENT. NEW PATIENT PAIN DIARY TODAY'S VISITNOTES FROM 0-10, WHAT LEVEL IS YOUR PAIN TODAY?0 PAIN CLINIC PFS, CLERGY, PUBLIC HEALTH REFERRALS PFS REFERRAL NEEDED?NO CLERGY REFERRAL NEEDED?NO PUBLIC HEALTH REFERRAL NEEDED?NO WAS THE PROVIDER NOTIFIED OF ANY PERTINENT INFO?NO PFS REFERRAL NEEDED?NO CLERGY REFERRAL NEEDED?NO PUBLIC HEALTH REFERRAL NEEDED?NO WAS THE PROVIDER NOTIFIED OF ANY PERTINENT INFO?NO PFS REFERRAL NEEDED?NO CLERGY REFERRAL NEEDED?NO PUBLIC HEALTH REFERRAL NEEDED?NO WAS THE PROVIDER NOTIFIED OF ANY PERTINENT INFO?NO HOSPITALIZATION/MAJOR DIAGNOSTIC PROCEDURE ADMITTED DUE TO INFECTION 03/2016 ADMITTED FOR INFECTION 11/2016 REVIEW OF SYSTEMS CONSTITUTIONAL: ANY CHANGE IN YOUR MEDICAL CONDITION? RIGHT FOOT PARTIALLY , YES . CHILLS NO . FEVER NO . INFECTION: DO YOU HAVE NEW INFECTIONS? NO . DO YOU HAVE HISTORY OF MRSA? NO . MUSCULOSKELETAL: ANY NEW PATTERNS OF PAIN OR NUMBNESS? YES, RIGHT FOOT PARTIALLY AMPUTATED . GASTROENTEROLOGY: ANY NEW CHANGE IN BOWEL CONTROL? NO . GENITOURINARY: ANY NEW CHANGE IN BLADDER CONTROL? NO . IS THERE A CHANCE YOU COULD BE ? NO . HEMATOLOGY/LYMPH: DO YOU TAKE ANY BLOOD THINNERS? (FOR EXAMPLE- COUMADIN, PLAVIX, AGGRENOX, PLATEL, PRADAXA, OR XARELTO) NO . WHEN WAS YOUR LAST DOSE? DATE: TIME: . NEUROLOGY: HAVE YOU FALLEN IN THE PAST 6 MONTHS? NO . ANY NEW EXTREMITY NUMBNESS OR WEAKNESS? NO . CARDIOLOGY: DO YOU HAVE A PACEMAKER OR DEFIBRILLATOR? NO . RESPIRATORY: HAVE YOU BEEN SICK IN THE PAST WEEK? NO . FEVER NO . FLU LIKE SYMPTOMS? NO . COUGH NO . INTEGUMENTARY: DO YOU HAVE ANY RASHES OR OPEN SORES? YES . ALLERGIC/IMMUNO: ARE YOU ALLERGIC TO SHELLFISH OR IV DYE? NO . ANY NEW ALLERGIES? NO . PSYCHIATRIC: DO YOU HAVE THOUGHTS OF HURTING YOURSELF OR SOMEONE ELSE? NO . ARE YOU ABUSED, NEGLECTED, OR IN AN UNSAFE ENVIRONMENT? NO . ENDOCRINOLOGY: ARE YOU DIABETIC? YES . OTHER: DO YOU NEED ANY PRESCRIPTIONS? NO . IF YES, PLEASE LIST: ____ . ANY NEW PROBLEMS WITH YOUR MEDICATIONS? NO . WHEN DID YOU LAST EAT? ____ . WHEN DID YOU LAST DRINK? ____ . WHAT DID YOU LAST DRINK? ____ . NAME OF PERSON DRIVING YOU HOME? ____ . DO YOU HAVE ANY OTHER QUESTIONS OR CONCERNS NO . REVIEWED BY: PROVIDER: HI THOMAS MD . VITAL SIGNS WT 165 LBS, HT 64.5 IN, BMI 27.88 INDEX, BP 113/75 MM HG, HR 92 /MIN, RR 18 /MIN, TEMP 97.0 F, OXYGEN SAT % 97%, NA INITIALS SC 10:28, REVIEWED BY: VD. EXAMINATION : PATIENT IS ALERT O X 3 AND COOPERATIVE. TENDERNESS IN BOTH FEET WITH HYPERPATHIA. ASSESSMENTS TYPE 2 DIABETES MELLITUS WITH DIABETIC POLYNEUROPATHY - E11.42 (PRIMARY) TREATMENT TYPE 2 DIABETES MELLITUS WITH DIABETIC POLYNEUROPATHY REFILL MORPHINE SULFATE ER TABLET EXTENDED RELEASE, 15 MG, 1 TABLET, ORALLY, EVERY 12 HRS DAY [facility], 30 DAY(S), 60, REFILLS 0 NOTES: WE DISCUSSED SEVERAL ISSUES WITH MRS. DAMICO'S PAIN MANAGEMENT CASE. AT THIS TIME PATIENT WILL CONTINUE WITH THE SAME MEDICATION REGIME BEFORE. PATIENT DENIES ABUSE OF ANY MEDICATION, DENIES USE OF ILLEGAL SUBSTANCES, AND STATES THAT SHE IS ONLY USING THE MEDICATION FOR PAIN MANAGEMENT. PATIENT URINE TOXICOLOGY REPORT DONE ON 10/18/16 SHOWS CONSTANT RESULTS WITH THE PATIENT'S MEDICATION LIST. AT THIS TIME WE MAY MOVE FORWARD WIT THE DCS TRIAL HOWEVER WE WILL NEED TO OBTAIN ANOTHER CLEARANCE FROM DR. FELIX AND THE PATIENT'S PRIMARY CARE. PATIENT WILL RETURN TO THE CLINIC IN 3 WEEKS TO DISCUSS THE PROGRESS MADE TOWARDS THE TRIAL. INSTRUCTIONS WERE GIVEN, QUESTIONS WERE ANSWERED, PATIENT REPORTS UNDERSTANDING AND AGREES WITH THE PLAN. I, MARKY ONEILL, DOCUMENTED THE ABOVE INFORMATION ACTING A SCRIBE FOR DR. THOMAS. I HAVE REVIEWED THE ABOVE DOCUMENT, WRITTEN BY MARKY LOERA AND I VERIFY THAT IT IS ACCURATE. PROCEDURE CODES FA211 ESTABILISHED PATIENT [facility] FAC[facility] CHARGE G8427 DOC MEDS VERIFIED W/PT OR RE G8730 PAIN ASSESS POS TOOL F/U PLAN DOC FOLLOW UP 3 WEEKS ELECTRONICALLY SIGNED BY HI THOMAS MD ON 12/22/2016 AT 08:12 PM EST DISCLAIMER : THIS IS A VISIT SUMMARY EXTRACTED FROM THE [employer] CHART. IT IS NOT A COPY OF THE [employer] PROGRESS NOTE. JESUS
== END ==
LOC: M PAIN 10:00
PROVIDERS: ATTEND Anesthesiology
DX: Z09 Encounter for follow-up examination after completed treatment for conditions other than malignant neoplasm (principal); M79.671 Pain in right foot; M79.672 Pain in left foot; R20.8 Other disturbances of skin sensation; E11.42 Type 2 diabetes mellitus with diabetic polyneuropathy; B18.2 Chronic viral hepatitis C; K70.31 Alcoholic cirrhosis of liver with ascites; F17.200 Nicotine dependence, unspecified, uncomplicated; L23.1 Allergic contact dermatitis due to adhesives; Z79.84 Long term (current) use of oral hypoglycemic drugs; Z79.891 Long term (current) use of opiate analgesic; Z79.899 Other long term (current) drug therapy; Z86.59 Personal history of other mental and behavioral disorders

== ENCOUNTER → 2016-12-16 | Outpatient (REF) | payer BC ==
[2016-12-16 15:17] LABS: CREATININE FOR GFR 1.16 MG/DL (0.55-1.02); GLOMERULAR FILTRATION RATE 53.1 (>58); POTASSIUM SERUM 4.7 MEQ/L (3.5-5.1)
[2016-12-16 18:04] LABS: BASO % 0.2 % (0.0-1.0); EOS # 0.1 K/mm3 (0.0-0.50); EOS % 1.4 % (0.0-3.0); LARGE UNSTAINED CELL # 0.1 K/mm3 (0.0-0.4); LARGE UNSTAINED CELL % 1.2 % (0.0-4.0); LYMPH # 1.1 K/mm3 (1.5-4.5); LYMPH % 11.6 % (24.0-44.0); MEAN CORPUSCULAR HEMOGLOBIN 25.6 pg (27.0-33.0); MEAN CORPUSCULAR HGB CONC 30.9 g/dl (32.0-36.5); MONO # 0.6 K/mm3 (0.0-0.8); MONO % 6.9 % (0.0-5.0); NEUTROPHILS # 7.3 K/mm3 (1.8-7.7); NEUTROPHILS % 78.7 % (36.0-66.0); PLATELET COUNT, AUTOMATED 333 k/mm3 (150-450); RED CELL DISTRIBUTION WIDTH 17.1 % (11.5-14.5); WHITE BLOOD COUNT 9.3 K/mm3 (4.0-10.0)
== END ==
LOC: M LAB REF 14:42
PROVIDERS: ATTEND Internal Medicine Infectious Disease
DX: M86.8X7 Other osteomyelitis, ankle and foot (principal); B95.62 Methicillin resistant Staphylococcus aureus infection as the cause of diseases classified elsewhere

== ENCOUNTER → 2016-12-20 | Outpatient (REF) | payer BC | LOC: M WUC 20:15 | PROVIDERS: ATTEND Internal Medicine Infectious Disease | DX: R19.7 Diarrhea, unspecified (principal) ==

== ENCOUNTER → 2016-12-23 | Outpatient (REF) | payer BC ==
[2016-12-23 15:19] LABS: BASO % 0.4 % (0.0-1.0); EOS # 0.2 K/mm3 (0.0-0.50); LARGE UNSTAINED CELL # 0.1 K/mm3 (0.0-0.4); LARGE UNSTAINED CELL % 1.5 % (0.0-4.0); LYMPH # 2.2 K/mm3 (1.5-4.5); LYMPH % 26.5 % (24.0-44.0); MEAN CORPUSCULAR HEMOGLOBIN 25.5 pg (27.0-33.0); MEAN CORPUSCULAR VOLUME 79.5 fl (80.0-96.0); MONO # 0.5 K/mm3 (0.0-0.8); MONO % 5.9 % (0.0-5.0); NEUTROPHILS # 5.2 K/mm3 (1.8-7.7); NEUTROPHILS % 63.7 % (36.0-66.0); PLATELET COUNT, AUTOMATED 242 k/mm3 (150-450); RED CELL DISTRIBUTION WIDTH 16.3 % (11.5-14.5); WHITE BLOOD COUNT 8.1 K/mm3 (4.0-10.0)
[2016-12-23 15:51] LABS: ANION GAP 8 MEQ/L (8-16); BLOOD UREA NITROGEN 28 MG/DL (7-18); CALCIUM LEVEL 8.8 MG/DL (8.5-10.1); CARBON DIOXIDE LEVEL 25 MEQ/L (21-32); CHLORIDE LEVEL 107 MEQ/L (98-107); CREATININE FOR GFR 1.04 MG/DL (0.55-1.02); GLOMERULAR FILTRATION RATE > 60.0 (>58); GLUCOSE, FASTING 66 MG/DL (70-105); POTASSIUM SERUM 4.2 MEQ/L (3.5-5.1); SODIUM LEVEL 140 MEQ/L (136-145)
== END ==
LOC: M LAB REF 14:27
PROVIDERS: ATTEND Internal Medicine Infectious Disease
DX: B95.62 Methicillin resistant Staphylococcus aureus infection as the cause of diseases classified elsewhere (principal)

== ENCOUNTER → 2017-01-02 | Outpatient (CLI) | payer BC, SELFPAY ==
[2017-01-02 16:40] LABS: MEAN CORPUSCULAR HEMOGLOBIN 25.4 pg (27.0-33.0); MEAN CORPUSCULAR HGB CONC 31.2 g/dl (32.0-36.5); MEAN CORPUSCULAR VOLUME 81.6 fl (80.0-96.0); RED CELL DISTRIBUTION WIDTH 15.8 % (11.5-14.5); WHITE BLOOD COUNT 8.4 K/mm3 (4.0-10.0)
[2017-01-02 17:05] LABS: CREATININE FOR GFR 1.31 MG/DL (0.55-1.02); GLOMERULAR FILTRATION RATE 46.1 (>58); POTASSIUM SERUM 4.9 MEQ/L (3.5-5.1)
== END ==
LOC: M WUC 12:44
PROVIDERS: ATTEND Internal Medicine Infectious Disease
DX: M86.171 Other acute osteomyelitis, right ankle and foot (principal); Z89.431 Acquired absence of right foot

== ENCOUNTER → 2017-01-15 | Outpatient (CLI) | payer BC ==
[~2017-01-15] MED LIST changes: +SPIR25TA2 PO
--- NOTE | 2017-01-29 02:15 | ECWPNPC ---
PATIENT NAME: ESTER DAMICO : 1970 GENDER: FEMALE VISIT DATE: 01/15/2017 DISCHARGE DATE: 01/15/17 1045 VISIT LOCKED DATE TIME: PHYSICIAN: HI THOMAS RESOURCE: HI THOMAS REASON FOR APPOINTMENT 1. FEET PAIN HISTORY OF PRESENT ILLNESS HISTORY OF PRESENT ILLNESS: PAIN THE PATIENT DESCRIBES THE PAIN... 45 YEAR OLD FEMALE PATIENT WITH HISTORY OF CHRONIC FOOT PAIN. PATIENT DESCRIBES THE PAIN THROBBING AND FEELING SQUISHY WITH A PAIN SCORE OF 8/10. PATIENT IS CURRENTLY USING MORPHINE SULPHATE, GABAPENTIN, AND LYRICA TO HELP WITH THE PAIN BUT STATES THAT THE MEDICATION DOES NOT HELP ENOUGH. MRS. DAMICO HAD PARTIAL FOOD AMPUTATION AND REPORTS DOING WELL FROM THE SURGERY. MRS. DAMICO WOULD LIKE TO PROCEED WITH THE DCS TRIAL AFTER HER FOOT HAS HEALED. PATIENT DENIES UNEXPLAINABLE WEIGHT LOSS, FEVER, CHILLS, NEW CHANGES ON HER URINARY OR BOWEL CONTROL. FALL RISK SCREENING: SCREENING :NO FALLS IN THE PAST YEAR CURRENT MEDICATIONS TAKING METFORMIN HCL 1000 MG TABLET 1 TABLET WITH MEALS ORALLY TWICE A DAY TAKING MIRALAX 1 PACKET 1 PACKET MIXED WITH 8 OUNCES OF FLUID ORALLY TWICE DAILY NEEDED TAKING SENNA S 8.6-50 MG TABLET 4-5 TABLETS ORALLY TWICE DAILY TAKING MULTIVITAMINS VITAMIN CAPSULE 1 TAB(S) ORALLY DAILY TAKING OXYCODONE-ACETAMINOPHEN 5-325 MG TABLET 1 TABLET NEEDED ORALLY EVERY 6 HRS, NOTES: DR CHAIDEZ MDD # 12 TAKING TORSEMIDE 20 MG TABLET 1.5 TABLETS ORALLY ONCE DAILY TAKING TRAMADOL HCL 50 MG TABLET 1-2 TABLET NEEDED ORALLY EVERY 6 HRS (MDD:6) TAKING LAC-HYDRIN 12 % CREAM 1 APPLICATION TO AFFECTED AREA EXTERNALLY TO FEET TWICE A DAY TAKING SPIRONOLACTONE 100 MG TABLET 1 TABLET ORALLY DAILY TAKING MORPHINE SULFATE ER 15 MG TABLET EXTENDED RELEASE 1 TABLET ORALLY EVERY 12 HRS MDD=2 PAIN CENTER TAKING LYRICA 300 MG CAPSULE 1 CAPSULE ORALLY TWICE A DAY MEDICATION LIST REVIEWED AND RECONCILED WITH THE PATIENT PAST MEDICAL HISTORY HEPATITIS C CHRONIC GENOTYPE 1A VIRAL LOAD 14 MILLION IN 2007 TREATED WITH 3 MONTHS OF PEG-INTRON AND RIBAVIRIN WITH NONCOMPLIANCE 2007, TREATED WITH HARVONI FOR 6 MONTHS CURED ALCOHOLISM CIRRHOSIS WITH ASCITES AND LOWER EXTREMITY EDEMA, 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 SOCIAL HISTORY GENERAL: TOBACCO USE ARE YOU A:CURRENT SMOKER HOW MANY CIGARETTES A DAY DO YOU SMOKE?11-20 HOW SOON AFTER YOU WAKE UP DO YOU SMOKE YOUR FIRST CIGARETTE?WITHIN 5 MIN HOW OFTEN DO YOU SMOKE CIGARETTES?EVERY DAY PATIENT COUNSELED ON THE DANGERS OF TOBACCO USE AND URGED TO QUIT: COUNCELLED IMPORTANCE OF QUITTING ARE YOU INTERESTED IN QUITTING?NOT READY TO QUIT LEARNING BARRIERS / SPECIAL NEEDS ORIENTED TO PLAN OF CARE: PATIENT, PAIN MANAGEMENT PATIENT, ORIENTED TO PLAN OF CARE: PATIENT, PAIN MANAGEMENT PATIENT. NEW PATIENT PAIN DIARY TODAY'S VISITNOTES FROM 0-10, WHAT LEVEL IS YOUR PAIN TODAY?0 PAIN CLINIC PFS, CLERGY, PUBLIC HEALTH REFERRALS PFS REFERRAL NEEDED?NO CLERGY REFERRAL NEEDED?NO PUBLIC HEALTH REFERRAL NEEDED?NO WAS THE PROVIDER NOTIFIED OF ANY PERTINENT INFO?NO PFS REFERRAL NEEDED?NO CLERGY REFERRAL NEEDED?NO PUBLIC HEALTH REFERRAL NEEDED?NO WAS THE PROVIDER NOTIFIED OF ANY PERTINENT INFO?NO HOSPITALIZATION/MAJOR DIAGNOSTIC PROCEDURE ADMITTED DUE TO INFECTION 03/2016 ADMITTED FOR INFECTION 11/2016 REVIEW OF SYSTEMS CONSTITUTIONAL: ANY CHANGE IN YOUR MEDICAL CONDITION? NO . CHILLS NO . FEVER NO . INFECTION: DO YOU HAVE NEW INFECTIONS? NO . DO YOU HAVE HISTORY OF MRSA? YES A YR AGO--LEFT FOOT--HEALED . MUSCULOSKELETAL: ANY NEW PATTERNS OF PAIN OR NUMBNESS? NO . GASTROENTEROLOGY: ANY NEW CHANGE IN BOWEL CONTROL? NO . GENITOURINARY: ANY NEW CHANGE IN BLADDER CONTROL? NO . IS THERE A CHANCE YOU COULD BE ? NO . HEMATOLOGY/LYMPH: DO YOU TAKE ANY BLOOD THINNERS? (FOR EXAMPLE- COUMADIN, PLAVIX, AGGRENOX, PLATEL, PRADAXA, OR XARELTO) NO . WHEN WAS YOUR LAST DOSE? DATE: TIME: . NEUROLOGY: HAVE YOU FALLEN IN THE PAST 6 MONTHS? NO . ANY NEW EXTREMITY NUMBNESS OR WEAKNESS? NO . CARDIOLOGY: DO YOU HAVE A PACEMAKER OR DEFIBRILLATOR? NO . RESPIRATORY: HAVE YOU BEEN SICK IN THE PAST WEEK? NO . FEVER NO . FLU LIKE SYMPTOMS? NO . COUGH NO . INTEGUMENTARY: DO YOU HAVE ANY RASHES OR OPEN SORES? NO . ALLERGIC/IMMUNO: ARE YOU ALLERGIC TO SHELLFISH OR IV DYE? NO . ANY NEW ALLERGIES? NO . PSYCHIATRIC: DO YOU HAVE THOUGHTS OF HURTING YOURSELF OR SOMEONE ELSE? NO . ARE YOU ABUSED, NEGLECTED, OR IN AN UNSAFE ENVIRONMENT? NO . ENDOCRINOLOGY: ARE YOU DIABETIC? YES . OTHER: DO YOU NEED ANY PRESCRIPTIONS? NO . IF YES, PLEASE LIST: ____ . ANY NEW PROBLEMS WITH YOUR MEDICATIONS? NO . WHEN DID YOU LAST EAT? ____ . WHEN DID YOU LAST DRINK? ____ . WHAT DID YOU LAST DRINK? ____ . NAME OF PERSON DRIVING YOU HOME? ____ . DO YOU HAVE ANY OTHER QUESTIONS OR CONCERNS NO . REVIEWED BY: PROVIDER: HI THOMAS MD . VITAL SIGNS WT 165 LBS, HT 64.5 IN, BMI 27.88 INDEX, BP 123/75 MM HG, HR 108 /MIN, RR 16 /MIN, TEMP 99.7 F, OXYGEN SAT % 95, NA INITIALS TL 0855, REVIEWED BY: ADTEMP 99.7. PT DENIES FEELING SICK- TL. EXAMINATION : PATIENT IS ALERT O X 3 AND COOPERATIVE. TENDERNESS IN BOTH FEET WITH HYPERPATHIA. MRI OF LUMBAR AND THORACIC SPINE SHOWS ENOUGH ROOM FOR THE LEADS TO PASS THROUGH. ASSESSMENTS PAIN IN RIGHT FOOT - M79.671 (PRIMARY) PERIPHERAL POLYNEUROPATHY - G62.9 PAIN IN LEFT FOOT - M79.672 TREATMENT OTHERS NOTES: WE DISCUSSED SEVERAL ISSUES WITH MRS. DAMICO'S PAIN MANAGEMENT CASE. AT THIS TIME THE PATIENT WILL CONTINUE WITH THE SAME MEDICATION REGIME BEFORE. PATIENT DENIES ABUSE OF ANY MEDICATION, DENIES USE OF ILLEGAL SUBSTANCES, AND STATES THAT SHE IS ONLY USING THE MEDICATION FOR PAIN. URINE TOXICOLOGY REPORT DONE ON 10/18/16 SHOWS CONSISTENT RESULTS WITH THE PATIENT MEDICATION LIST. PATIENT IS AWARE SHE WILL NEED TO WEEN HERSELF FROM HER MEDICATION FOR THE TRIAL. WE DISCUSSED MOVING FORWARD WITH THE DCS TRIAL AT THIS TIME. I WILL NEED TO HAVE THE AUTHORIZATION FOR THE TRIAL EXTENDED. I WILL ALSO NEED CLEARANCE FROM THE DR. CHAIDEZ THE SURGEON WELL DR. [place]. PATIENT WILL RETURN THE FRIDAY BEFORE THE TRIAL SO I MAY CHECK HER FEET FOR ANY OPEN ULCERS TO AVOID INFECTION DURING THE TRIAL. WE DISCUSSED THE RISKS, BENEFITS, AND ALTERNATIVES OF THE INJECTION AND THE PATIENT WOULD LIKE TO PROCEED AT THIS TIME. INSTRUCTIONS WERE GIVEN, QUESTIONS WERE ANSWERED, PATIENT REPORTS UNDERSTANDING AND AGREES WITH THE PLAN. I, MARKY ONEILL, DOCUMENTED THE ABOVE INFORMATION ACTING A SCRIBE FOR DR. THOMAS. I HAVE REVIEWED THE ABOVE DOCUMENT, WRITTEN BY MARKY LOERA AND I VERIFY THAT IT IS ACCURATE. PROCEDURE CODES FA211 ESTABILISHED PATIENT [facility] FACILITY CHARGE G8427 DOC MEDS VERIFIED W/PT OR RE G8730 PAIN ASSESS POS TOOL F/U PLAN DOC DISPOSITION & COMMUNICATION FOLLOW UP FRIDAY BEFORE TRIAL ELECTRONICALLY SIGNED BY HI THOMAS MD ON 01/27/2017 AT 06:28 PM EDT DISCLAIMER : THIS IS A VISIT SUMMARY EXTRACTED FROM THE [employer] CHART. IT IS NOT A COPY OF THE [employer] PROGRESS NOTE. JESUS
== END ==
LOC: M PAIN 08:40
PROVIDERS: ATTEND Anesthesiology
DX: Z09 Encounter for follow-up examination after completed treatment for conditions other than malignant neoplasm (principal); G89.29 Other chronic pain; M79.671 Pain in right foot; M79.672 Pain in left foot; E11.42 Type 2 diabetes mellitus with diabetic polyneuropathy; E11.621 Type 2 diabetes mellitus with foot ulcer; I95.89 Other hypotension; K70.31 Alcoholic cirrhosis of liver with ascites; B18.2 Chronic viral hepatitis C; M20.10 Hallux valgus (acquired), unspecified foot; I47.1 Supraventricular tachycardia; G62.1 Alcoholic polyneuropathy; Z86.19 Personal history of other infectious and parasitic diseases; Z22.322 Carrier or suspected carrier of Methicillin resistant Staphylococcus aureus; F10.20 Alcohol dependence, uncomplicated; Z79.899 Other long term (current) drug therapy; Z79.84 Long term (current) use of oral hypoglycemic drugs; Z79.891 Long term (current) use of opiate analgesic; L23.1 Allergic contact dermatitis due to adhesives; F17.210 Nicotine dependence, cigarettes, uncomplicated

== ENCOUNTER 2017-01-18 13:46 | Emergency (ER) | payer BC ==
[~2017-01-18] VITALS: Ht 162.6 cm; Wt 74.4 kg
[~2017-01-18 13:46] MED LIST changes: -SPIR25TA2 PO
[2017-01-18] MEDS ORDERED: TORS20TA2 PO (14:08)
[2017-01-18] MEDS ORDERED: SPIR25TA2 PO (14:08)
[2017-01-18 14:48] LABS: BASO % 0.2 % (0.0-1.0); EOS # 0.2 K/mm3 (0.0-0.50); EOS % 1.7 % (0.0-3.0); LARGE UNSTAINED CELL # 0.2 K/mm3 (0.0-0.4); LARGE UNSTAINED CELL % 1.4 % (0.0-4.0); LYMPH # 1.3 K/mm3 (1.5-4.5); LYMPH % 11.7 % (24.0-44.0); MEAN CORPUSCULAR HEMOGLOBIN 25.9 pg (27.0-33.0); MEAN CORPUSCULAR HGB CONC 33.2 g/dl (32.0-36.5); MEAN CORPUSCULAR VOLUME 78.1 fl (80.0-96.0); MONO # 0.5 K/mm3 (0.0-0.8); MONO % 4.5 % (0.0-5.0); NEUTROPHILS # 9.2 K/mm3 (1.8-7.7); NEUTROPHILS % 80.4 % (36.0-66.0); PLATELET COUNT, AUTOMATED 343 k/mm3 (150-450); RED CELL DISTRIBUTION WIDTH 15.8 % (11.5-14.5); WHITE BLOOD COUNT 11.4 K/mm3 (4.0-10.0)
[2017-01-18 15:22] LABS: ALBUMIN 4.1 GM/DL (3.2-5.2); BILIRUBIN,DIRECT 0.1 MG/DL (0.0-0.2); BILIRUBIN,TOTAL 0.4 MG/DL (0.2-1.0); CALCIUM LEVEL 8.4 MG/DL (8.5-10.1); CREATININE FOR GFR 1.24 MG/DL (0.55-1.02); GLOMERULAR FILTRATION RATE 49.1 (>58); TOTAL PROTEIN 8.2 GM/DL (6.4-8.2)
[2017-01-18 15:48] LABS: CONTROL LINE INT CTR LINE PRESENT; METHADONE URINE NEGATIVE (NEGATIVE); TRICYCLIC ANTIDEPRESS URINE NEGATIVE (NEGATIVE)
[2017-01-18 16:24] VITALS: BP 111/82
--- NOTE | 2017-01-19 06:42 | REP ---
CT BRAIN WITHOUT IV CONTRAST: CT brain is performed without IV contrast. The ventricles are normal in size and position. There is no midline shift. No abnormal densities are seen. Davis-white differentiation is well maintained. There is no acute hemorrhage. There is no extra-axial fluid collection. Bone window examination is unremarkable. Paranasal sinuses demonstrate no abnormal opacification. IMPRESSION: Negative noncontrast CT brain. Signed by Mika Davis MD 01/19/2017 01:52 P
== END 2017-01-18 16:37 | disposition home or self-care (01) ==
LOC: EDBD 13:46 → M ED 14:38
DX: R56.9 Unspecified convulsions (principal); T40.4X5A Adverse effect of other synthetic narcotics, initial encounter; X58.XXXA Exposure to other specified factors, initial encounter; Y92.89 Other specified places as the place of occurrence of the external cause; Y93.89 Activity, other specified; Y99.8 Other external cause status; B19.20 Unspecified viral hepatitis C without hepatic coma; K70.30 Alcoholic cirrhosis of liver without ascites; F17.210 Nicotine dependence, cigarettes, uncomplicated; G60.9 Hereditary and idiopathic neuropathy, unspecified; Z79.84 Long term (current) use of oral hypoglycemic drugs; Z79.899 Other long term (current) drug therapy; E11.42 Type 2 diabetes mellitus with diabetic polyneuropathy
CPT/HCPCS: 36415; 70450; 80048; 80076; 80306; 82140; 85025; 99282; G0480

== ENCOUNTER → 2017-02-04 | Outpatient (REF) | payer BC ==
[~2017-02-04] MED LIST changes: +SPIR25TA2 PO
[2017-02-04 10:45] LABS: BASO % 0.6 % (0.0-1.0); EOS # 0.5 K/mm3 (0.0-0.50); EOS % 6.1 % (0.0-3.0); LARGE UNSTAINED CELL # 0.2 K/mm3 (0.0-0.4); LARGE UNSTAINED CELL % 2.3 % (0.0-4.0); LYMPH # 2.5 K/mm3 (1.5-4.5); LYMPH % 30.9 % (24.0-44.0); MEAN CORPUSCULAR HEMOGLOBIN 26.1 pg (27.0-33.0); MEAN CORPUSCULAR HGB CONC 32.6 g/dl (32.0-36.5); MEAN CORPUSCULAR VOLUME 80.2 fl (80.0-96.0); MONO # 0.6 K/mm3 (0.0-0.8); MONO % 7.8 % (0.0-5.0); NEUTROPHILS % 52.3 % (36.0-66.0); PLATELET COUNT, AUTOMATED 263 k/mm3 (150-450); RED CELL DISTRIBUTION WIDTH 15.2 % (11.5-14.5); WHITE BLOOD COUNT 7.7 K/mm3 (4.0-10.0)
[2017-02-04 10:51] LABS: CREATININE FOR GFR 1.29 MG/DL (0.55-1.02); POTASSIUM SERUM 4.5 MEQ/L (3.5-5.1)
[2017-02-04 11:05] LABS: INR 1.19
== END ==
LOC: M SFHCPLAZ 08:17
PROVIDERS: ATTEND Internal Medicine Infectious Disease
DX: M86.171 Other acute osteomyelitis, right ankle and foot (principal)

== ENCOUNTER → 2017-02-06 | Outpatient (CLI) | payer BC ==
--- NOTE | 2017-02-11 01:12 | ECWPNPC ---
PATIENT NAME: ESTER DAMICO : 1970 GENDER: FEMALE VISIT DATE: 02/06/2017 DISCHARGE DATE: 02/06/17 1409 VISIT LOCKED DATE TIME: PHYSICIAN: HI THOMAS RESOURCE: HI THOMAS REASON FOR APPOINTMENT 1. FEET PAIN HISTORY OF PRESENT ILLNESS HISTORY OF PRESENT ILLNESS: PAIN THE PATIENT DESCRIBES THE PAIN... 45 YEAR OLD FEMALE PATIENT WITH HISTORY OF CHRONIC FOOT PAIN. PATIENT DESCRIBES THE PAIN THROBBING AND FEELING SQUISHY WITH A PAIN SCORE OF 9/10. PATIENT IS CURRENTLY USING MORPHINE SULPHATE, GABAPENTIN, AND LYRICA TO HELP WITH THE PAIN BUT STATES THAT THE MEDICATION DOES NOT HELP ENOUGH. PATIENT WAS WEANING MEDICATION FOR DCS TRIAL. RECENTLY PATIENT WAS REFERRED TO NEUROLOGY DUE TO HAVING A SEIZURE. PATIENT IS UNAWARE THAT THE SEIZURE HAD HAPPENED PATIENT DENIES UNEXPLAINABLE WEIGHT LOSS, FEVER, CHILLS, NEW CHANGES ON HER URINARY OR BOWEL CONTROL. FALL RISK SCREENING: SCREENING :NO FALLS IN THE PAST YEAR CURRENT MEDICATIONS TAKING SENNA S 8.6-50 MG TABLET 4-5 TABLETS ORALLY TWICE DAILY TAKING METFORMIN HCL 1000 MG TABLET 1 TABLET WITH MEALS ORALLY TWICE A DAY TAKING MIRALAX 1 PACKET 1 PACKET MIXED WITH 8 OUNCES OF FLUID ORALLY TWICE DAILY NEEDED TAKING MULTIVITAMINS VITAMIN CAPSULE 1 TAB(S) ORALLY DAILY TAKING TORSEMIDE 20 MG TABLET 1.5 TABLETS ORALLY ONCE DAILY TAKING LAC-HYDRIN 12 % CREAM 1 APPLICATION TO AFFECTED AREA EXTERNALLY TO FEET TWICE A DAY TAKING SPIRONOLACTONE 100 MG TABLET 1 TABLET ORALLY DAILY TAKING MORPHINE SULFATE ER 15 MG TABLET EXTENDED RELEASE 1 TABLET ORALLY EVERY 12 HRS MDD=2 PAIN CENTER TAKING LYRICA 300 MG CAPSULE 1 CAPSULE ORALLY TWICE A DAY TAKING TRAMADOL HCL 50 MG TABLET 1-2 TABLET NEEDED ORALLY EVERY 6 HRS (MDD:6) DISCONTINUED OXYCODONE-ACETAMINOPHEN 5-325 MG TABLET 1 TABLET NEEDED ORALLY EVERY 6 HRS, NOTES: DR CHAIDEZ MDD # 12 MEDICATION LIST REVIEWED AND RECONCILED WITH THE PATIENT PAST MEDICAL HISTORY HEPATITIS C CHRONIC GENOTYPE 1A VIRAL LOAD 14 MILLION IN 2007 TREATED WITH 3 MONTHS OF PEG-INTRON AND RIBAVIRIN WITH NONCOMPLIANCE 2007, TREATED WITH HARVONI FOR 6 MONTHS CURED ALCOHOLISM CIRRHOSIS WITH ASCITES AND LOWER EXTREMITY EDEMA, 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 07/14/2014 ENDOSCOPY 3 SURGERIES ON FEET- REMOVAL OF PIECE OF BONE 04/01 I&D R FOOT 08/19/2016 RIGHT GREAT TOE JOINT REMOVED 08/2016 PARTIAL RIGHT FOOT AMPUTATION 11/2016 FAMILY HISTORY NO FAMILY HISTORY DOCUMENTED. SOCIAL HISTORY GENERAL: TOBACCO USE ARE YOU A:CURRENT SMOKER HOW MANY CIGARETTES A DAY DO YOU SMOKE?11-20 HOW SOON AFTER YOU WAKE UP DO YOU SMOKE YOUR FIRST CIGARETTE?WITHIN 5 MIN HOW OFTEN DO YOU SMOKE CIGARETTES?EVERY DAY PATIENT COUNSELED ON THE DANGERS OF TOBACCO USE AND URGED TO QUIT:02/05/2017 COUNCELLED IMPORTANCE OF QUITTING ARE YOU INTERESTED IN QUITTING?NOT READY TO QUIT COUNSELED THE PATIENT ON SMOKING EFFECTS, EDUCATION [id number]/2017 ALCOHOL SCREENING DID YOU HAVE A DRINK CONTAINING ALCOHOL IN THE PAST YEAR?NO POINTS0 INTERPRETATIONNEGATIVE RECREATIONAL DRUG USE DRUG USE?YES CAFFEINE CAFFEINE USE?NO SEXUAL HX HAD SEX IN THE LAST 12 MONTHS (VAGINAL, ORAL, OR ANAL)?YES WITHMEN ONLY OCCUPATION: UNEMPLOYED. DIET: REGULAR. EXERCISE: NO REGULAR EXERCISE. MARITAL STATUS: . OTHERS AT HOME: SPOUSE, CHILD. ANGLICAN: NO TEMPLE BELIEFS THAT WOULD IMPACT HEALTH CARE. LANGUAGE: SWAZI. 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 NO . CHILLS NO . FEVER NO . INFECTION: DO YOU HAVE NEW INFECTIONS? NO . DO YOU HAVE HISTORY OF MRSA? NO . MUSCULOSKELETAL: ANY NEW PATTERNS OF PAIN OR NUMBNESS? NO . GASTROENTEROLOGY: ANY NEW CHANGE IN BOWEL CONTROL? NO . GENITOURINARY: ANY NEW CHANGE IN BLADDER CONTROL? NO . IS THERE A CHANCE YOU COULD BE ? NO . HEMATOLOGY/LYMPH: DO YOU TAKE ANY BLOOD THINNERS? (FOR EXAMPLE- COUMADIN, PLAVIX, AGGRENOX, PLATEL, PRADAXA, OR XARELTO) NO . WHEN WAS YOUR LAST DOSE? DATE: TIME: . NEUROLOGY: HAVE YOU FALLEN IN THE PAST 6 MONTHS? NO . ANY NEW EXTREMITY NUMBNESS OR WEAKNESS? NO . CARDIOLOGY: DO YOU HAVE A PACEMAKER OR DEFIBRILLATOR? NO . RESPIRATORY: HAVE YOU BEEN SICK IN THE PAST WEEK? NO . FEVER NO . FLU LIKE SYMPTOMS? NO . COUGH NO . INTEGUMENTARY: DO YOU HAVE ANY RASHES OR OPEN SORES? NO . ALLERGIC/IMMUNO: ARE YOU ALLERGIC TO SHELLFISH OR IV DYE? NO . ANY NEW ALLERGIES? NO . PSYCHIATRIC: DO YOU HAVE THOUGHTS OF HURTING YOURSELF OR SOMEONE ELSE? NO . ARE YOU ABUSED, NEGLECTED, OR IN AN UNSAFE ENVIRONMENT? NO . ENDOCRINOLOGY: ARE YOU DIABETIC? YES . OTHER: DO YOU NEED ANY PRESCRIPTIONS? NO . IF YES, PLEASE LIST: ____ . ANY NEW PROBLEMS WITH YOUR MEDICATIONS? NO . WHEN DID YOU LAST EAT? ____ . WHEN DID YOU LAST DRINK? ____ . WHAT DID YOU LAST DRINK? ____ . NAME OF PERSON DRIVING YOU HOME? ____ . DO YOU HAVE ANY OTHER QUESTIONS OR CONCERNS NO . REVIEWED BY: PROVIDER: HI THOMAS MD . VITAL SIGNS WT 162.0 LBS, HT 64.5 IN, BMI 27.37 INDEX, BP 121/80 MM HG, HR 90 /MIN, RR 16 /MIN, TEMP 98.7 F, OXYGEN SAT % 99, NA INITIALS TL 1313, REVIEWED BY: CM. EXAMINATION : PATIENT IS ALERT O X 3 AND COOPERATIVE. TENDERNESS IN BOTH FEET WITH HYPERPATHIA. MRI OF LUMBAR AND THORACIC SPINE SHOWS ENOUGH ROOM FOR THE LEADS TO PASS THROUGH. PENDING CLEARANCE FROM NEUROLOGY. ASSESSMENTS PAIN IN RIGHT FOOT - M79.671 (PRIMARY) PAIN IN LEFT FOOT - M79.672 POLYNEUROPATHY, UNSPECIFIED - G62.9 TREATMENT PAIN IN RIGHT FOOT NOTES: WE DISCUSSED SEVERAL ISSUES WITH MRS. DAMICO'S PAIN MANAGEMENT CASE. AT THIS TIME THE PATIENT WILL CONTINUE WITH THE SAME MEDICATION REGIME BEFORE. PATIENT DENIES ABUSE OF ANY MEDICATION, DENIES USE OF ILLEGAL SUBSTANCES, AND STATES THAT SHE IS ONLY USING THE MEDICATION FOR PAIN MANAGEMENT. URINE TOXICOLOGY REPORT DONE ON 10/23/16 SHOWS OXYCODONE WHICH THE PATIENT STATED SHE RECEIVED FROM DR. CHAIDEZ DUE TO THE FOOT SURGERY. I-STOP CONFIRMS THIS. AT THIS TIME WE WILL NEED A CLEARANCE FROM THE NEUROLOGIST TO MOVE FORWARD WITH THE DCS DUE TO THE SEIZURE. PATIENT WAS REFERRED TO [facility] NEUROLOGY BY HER PRIMARY CARE. PATIENT IS AWARE THAT IF SHE IS CLEARED WE WILL MOVE FORWARD WITH THE DCS BUT NOT UNTIL SHE HAS BEEN. PATIENT WILL RETURN OT THE CLINIC IN 3 WEEKS AFTER SHE HAS SEEN THE NEUROLOGIST TO DISCUSS FURTHER INTERVENTIONS FOR HER. INSTRUCTIONS WERE GIVEN, QUESTIONS WERE ANSWERED, PATIENT REPORTS UNDERSTANDING AND AGREES WITH THE PLAN. I, MARKY ONEILL, DOCUMENTED THE ABOVE INFORMATION ACTING A SCRIBE FOR DR. THOMAS. I HAVE REVIEWED THE ABOVE DOCUMENT, WRITTEN BY MARKY LOERA AND I VERIFY THAT IT IS ACCURATE. OTHERS REFILL MORPHINE SULFATE ER TABLET EXTENDED RELEASE, 15 MG, 1 TABLET, ORALLY FOR PAIN, EVERY 8 HRS MDD=3, 15 DAYS, 45, REFILLS 0 PROCEDURES SIGNOFF PRECEPTORSHIP Sadia AHMADI . ATTENDING PRIMARY CARE EXCEPTION: I WAS PRESENT ON-SITE TO SUPERVISE THE RESIDENT. WE DISCUSSED THE HARDIN ELEMENTS OF THE HISTORY, EXAM, ASSESSMENT AND PLAN AND I AGREE WITH THEIR NOTE ABOVE PROCEDURE CODES FA211 ESTABILISHED PATIENT [facility] FACILITY CHARGE G8427 DOC MEDS VERIFIED W/PT OR RE G0111 PAIN ASSESS POS TOOL F/U PLAN DOC DISPOSITION & COMMUNICATION FOLLOW UP 3 WEEKS ELECTRONICALLY SIGNED BY HI THOMAS MD ON 02/10/2017 AT 06:21 PM EDT DISCLAIMER : THIS IS A VISIT SUMMARY EXTRACTED FROM THE [employer] CHART. IT IS NOT A COPY OF THE [employer] PROGRESS NOTE. JESUS
== END ==
LOC: M PAIN 12:40
PROVIDERS: ATTEND Anesthesiology
DX: Z09 Encounter for follow-up examination after completed treatment for conditions other than malignant neoplasm (principal); G89.29 Other chronic pain; M79.671 Pain in right foot; M79.672 Pain in left foot; G62.9 Polyneuropathy, unspecified; E11.9 Type 2 diabetes mellitus without complications; K70.30 Alcoholic cirrhosis of liver without ascites; B18.2 Chronic viral hepatitis C; L23.1 Allergic contact dermatitis due to adhesives; F17.200 Nicotine dependence, unspecified, uncomplicated; Z79.84 Long term (current) use of oral hypoglycemic drugs; Z79.891 Long term (current) use of opiate analgesic; Z79.899 Other long term (current) drug therapy; Z86.59 Personal history of other mental and behavioral disorders; Z89.431 Acquired absence of right foot

== ENCOUNTER → 2017-03-26 | Outpatient (CLI) | payer BC ==
--- NOTE | 2017-04-05 23:45 | ECWPNPC ---
PATIENT NAME: ESTER DAMICO : 1970 GENDER: FEMALE VISIT DATE: 03/26/2017 DISCHARGE DATE: 03/26/17 1637 VISIT LOCKED DATE TIME: PHYSICIAN: HI THOMAS RESOURCE: HI THOMAS REASON FOR APPOINTMENT 1. FEET PAIN HISTORY OF PRESENT ILLNESS HISTORY OF PRESENT ILLNESS: PAIN THE PATIENT DESCRIBES THE PAIN... 46 YEAR OLD FEMALE PATIENT WITH HISTORY OF CHRONIC FEET PAIN. PATIENT DESCRIBES THE PAIN ACHING AND SQUISHY FEELING WITH A PAIN SCORE OF 8/10. PATIENT IS CURRENTLY USING MORPHINE SULPHATE, GABAPENTIN AND LYRICA FOR PAIN MANAGEMENT WHICH SHE STATES KEEPS HER MOBILE FUNCTIONAL. MRS. DAMICO HAS NOT BEEN CLEARED BY THE NEUROLOGIST FOR THE DCS AND REPORTS HAVING ANOTHER TEST IN APRIL. PATIENT DENIES UNEXPLAINABLE WEIGHT LOSS, FEVER, CHILLS, NEW CHANGES ON HER URINARY OR BOWEL CONTROL. FALL RISK SCREENING: SCREENING :NO FALLS IN THE PAST YEAR CURRENT MEDICATIONS TAKING SPIRONOLACTONE 100 MG TABLET 1 TABLET ORALLY DAILY TAKING MORPHINE SULFATE ER 15 MG TABLET EXTENDED RELEASE 1 TABLET ORALLY FOR PAIN THREE TIMES DAILY TAKING METFORMIN HCL 1000 MG TABLET 1 TABLET WITH MEALS ORALLY TWICE A DAY TAKING MIRALAX 1 PACKET 1 PACKET MIXED WITH 8 OUNCES OF FLUID ORALLY TWICE DAILY NEEDED TAKING MULTIVITAMINS VITAMIN CAPSULE 1 TAB(S) ORALLY DAILY TAKING LAC-HYDRIN 12 % CREAM 1 APPLICATION TO AFFECTED AREA EXTERNALLY TO FEET TWICE A DAY TAKING TORSEMIDE 20 MG TABLET 1.5 TABLETS ORALLY ONCE DAILY TAKING LYRICA 300 MG CAPSULE 1 CAPSULE ORALLY TWICE A DAY TAKING TRAMADOL HCL 50 MG TABLET 1-2 TABLET NEEDED ORALLY EVERY 6 HRS (MDD:6) TAKING SENNA S 8.6-50 MG TABLET 4-5 TABLETS ORALLY TWICE DAILY MEDICATION LIST REVIEWED AND RECONCILED WITH THE PATIENT PAST MEDICAL HISTORY HEPATITIS C CHRONIC GENOTYPE 1A VIRAL LOAD 14 MILLION IN 2007 TREATED WITH 3 MONTHS OF PEG-INTRON AND RIBAVIRIN WITH NONCOMPLIANCE 2007, TREATED WITH HARVONI FOR 6 MONTHS CURED ALCOHOLISM CIRRHOSIS WITH ASCITES AND LOWER EXTREMITY EDEMA, 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 MILD VARICES AND GASTROPATHY HISTORY OF IV DRUG USE QUIT 25 YEARS AGO SYPHILIS LIVER DECOMPENSATION CELLULITIS OF LEG WITHOUT FOOT, LEFT RIGHT 2ND, 3RD, 4TH TOES FX' PARTIAL RIGHT FOOT AMPUTATED ALLERGIES NONE BANDAIDES/TAPE: RASH SURGICAL HISTORY TUBAL LIGATION 1991 CARDIAC ABLATION [facility] 07/14/2014 ENDOSCOPY 3 SURGERIES ON FEET- REMOVAL OF PIECE OF BONE 04/01 I&D R FOOT 08/19/2016 RIGHT GREAT TOE JOINT REMOVED 08/2016 PARTIAL RIGHT FOOT AMPUTATION 11/2016 FAMILY HISTORY FATHER: ALIVE MOTHER: ALIVE SIBLINGS: ALIVE SON(S): ALIVE DAUGHTER(S): ALIVE 2 BROTHER(S) , 1 SISTER(S) - HEALTHY. 1 SON(S) , 1 DAUGHTER(S) - HEALTHY. SOCIAL HISTORY GENERAL: TOBACCO USE ARE YOU A:CURRENT SMOKER HOW MANY CIGARETTES A DAY DO YOU SMOKE?11-20 HOW SOON AFTER YOU WAKE UP DO YOU SMOKE YOUR FIRST CIGARETTE?WITHIN 5 MIN HOW OFTEN DO YOU SMOKE CIGARETTES?EVERY DAY PATIENT COUNSELED ON THE DANGERS OF TOBACCO USE AND URGED TO QUIT:03/04/2017 COUNCELLED IMPORTANCE OF QUITTING ARE YOU INTERESTED IN QUITTING?NOT READY TO QUIT COUNSELED THE PATIENT ON SMOKING EFFECTS, EDUCATION [id number]/18/2017 ALCOHOL SCREENING DID YOU HAVE A DRINK CONTAINING ALCOHOL IN THE PAST YEAR?NO POINTS0 INTERPRETATIONNEGATIVE RECREATIONAL DRUG USE DRUG USE?YES CAFFEINE CAFFEINE USE?NO SEXUAL HX HAD SEX IN THE LAST 12 MONTHS (VAGINAL, ORAL, OR ANAL)?YES WITHMEN ONLY OCCUPATION: UNEMPLOYED. DIET: REGULAR. EXERCISE: NO REGULAR EXERCISE. MARITAL STATUS: . OTHERS AT HOME: SPOUSE, CHILD. PETS: NONE. [place] NO NONDENOMINATIONAL BELIEFS THAT WOULD IMPACT HEALTH CARE. LANGUAGE CITIZEN OF [place]. 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 NO . CHILLS NO . FEVER NO . INFECTION: DO YOU HAVE NEW INFECTIONS? NO . DO YOU HAVE HISTORY OF MRSA? NO . MUSCULOSKELETAL: ANY NEW PATTERNS OF PAIN OR NUMBNESS? NO . GASTROENTEROLOGY: ANY NEW CHANGE IN BOWEL CONTROL? NO . GENITOURINARY: ANY NEW CHANGE IN BLADDER CONTROL? NO . IS THERE A CHANCE YOU COULD BE ? NO . HEMATOLOGY/LYMPH: DO YOU TAKE ANY BLOOD THINNERS? (FOR EXAMPLE- COUMADIN, PLAVIX, AGGRENOX, PLATEL, PRADAXA, OR XARELTO) NO . WHEN WAS YOUR LAST DOSE? DATE: TIME: . NEUROLOGY: HAVE YOU FALLEN IN THE PAST 6 MONTHS? NO . ANY NEW EXTREMITY NUMBNESS OR WEAKNESS? NO . CARDIOLOGY: DO YOU HAVE A PACEMAKER OR DEFIBRILLATOR? NO . RESPIRATORY: HAVE YOU BEEN SICK IN THE PAST WEEK? NO . FEVER NO . FLU LIKE SYMPTOMS? NO . COUGH NO . INTEGUMENTARY: DO YOU HAVE ANY RASHES OR OPEN SORES? NO . ALLERGIC/IMMUNO: ARE YOU ALLERGIC TO SHELLFISH OR IV DYE? NO . ANY NEW ALLERGIES? NO . PSYCHIATRIC: DO YOU HAVE THOUGHTS OF HURTING YOURSELF OR SOMEONE ELSE? NO . ARE YOU ABUSED, NEGLECTED, OR IN AN UNSAFE ENVIRONMENT? NO . ENDOCRINOLOGY: ARE YOU DIABETIC? YES . OTHER: DO YOU NEED ANY PRESCRIPTIONS? YES . IF YES, PLEASE LIST: MORPHINE . ANY NEW PROBLEMS WITH YOUR MEDICATIONS? NO . WHEN DID YOU LAST EAT? ____ . WHEN DID YOU LAST DRINK? ____ . WHAT DID YOU LAST DRINK? ____ . NAME OF PERSON DRIVING YOU HOME? ____ . DO YOU HAVE ANY OTHER QUESTIONS OR CONCERNS NO . REVIEWED BY: PROVIDER: HI THOMAS MD . VITAL SIGNS WT 161.8 LBS, HT 64.5 IN, BMI 27.34 INDEX, BP 115/68 MM HG, HR 88 /MIN, RR 16 /MIN, TEMP 98.0 F, OXYGEN SAT % 99%, NA INITIALS SC 14:56, REVIEWED BY: CM. EXAMINATION : PATIENT IS ALERT O X 3 AND COOPERATIVE. TENDERNESS IN BOTH FEET WITH HYPERPATHIA. MRI OF LUMBAR AND THORACIC SPINE SHOWS ENOUGH ROOM FOR THE LEADS TO PASS THROUGH. PENDING CLEARANCE FROM NEUROLOGY. ASSESSMENTS PAIN IN RIGHT FOOT - M79.671 (PRIMARY) PAIN IN LEFT FOOT - M79.672 POLYNEUROPATHY, UNSPECIFIED - G62.9 TREATMENT PAIN IN RIGHT FOOT NOTES: WE DISCUSSED SEVERAL ISSUES WITH MRS. DAMICO'S PAIN MANAGEMENT CASE. AT THIS TIME THE PATIENT WILL CONTINUE USING GABAPENTIN AND LYRICA FOR THE NEUROPATHIC PAIN SHE IS FEELING IN THE FEET. PATIENT WILL START USING MORPHINE SULPHATE ER TWICE A DAY AND WILL HAVE THE OPTION TO USE ONE SHORT ACTING TABLET A DAY. PATIENT DENIES ABUSE OF ANY MEDICATION, DENIES USE OF ILLEGAL SUBSTANCES, AND STATES THAT SHE IS ONLY USING THE MEDICATION FOR PAIN MANAGEMENT. URINE TOXICOLOGY REPORT DONE ON 10/18/16 SHOWS CONSISTENT RESULTS WITH THE PATIENT'S MEDICATION LIST. WE DISCUSSED MOVING FORWARD WITH THE DCS SOON THE PATIENT HAS THE NEUROLOGIST CLEARANCE. PATIENT WILL RETURN IN 6 WEEKS TO FURTHER DISCUSS HER CASE. INSTRUCTIONS WERE GIVEN, QUESTIONS WERE ANSWERED, PATIENT REPORTS UNDERSTANDING AND AGREES WITH THE PLAN. I, MARKY ONEILL, DOCUMENTED THE ABOVE INFORMATION ACTING A SCRIBE FOR DR. THOMAS. I HAVE REVIEWED THE ABOVE DOCUMENT, WRITTEN BY MARKY LOERA AND I VERIFY THAT IT IS ACCURATE. OTHERS REFILL MORPHINE SULFATE ER TABLET EXTENDED RELEASE, 15 MG, 1 TABLET, ORALLY FOR PAIN, TWICE DAILY FOR PAIN, 30 DAY(S), 60, REFILLS 0 START MORPHINE SULFATE TABLET, 15 MG, 1 TABLET NEEDED, ORALLY, DAILY FOR PAIN, 30 DAY(S), 30, REFILLS 0 PROCEDURE CODES FA211 ESTABILISHED PATIENT [facility] FACILITY CHARGE G8427 DOC MEDS VERIFIED W/PT OR RE G0560 PAIN ASSESS POS TOOL F/U PLAN DOC DISPOSITION & COMMUNICATION FOLLOW UP 6 WEEKS ELECTRONICALLY SIGNED BY HI THOMAS MD ON 04/05/2017 AT 07:00 PM EDT DISCLAIMER : THIS IS A VISIT SUMMARY EXTRACTED FROM THE [employer] CHART. IT IS NOT A COPY OF THE [email or web address] PROGRESS NOTE. KEVIND
== END ==
LOC: M PAIN 15:00
PROVIDERS: ATTEND Anesthesiology
DX: G89.29 Other chronic pain (principal); M79.671 Pain in right foot; M79.672 Pain in left foot; G62.9 Polyneuropathy, unspecified; F10.21 Alcohol dependence, in remission; K70.30 Alcoholic cirrhosis of liver without ascites; F17.210 Nicotine dependence, cigarettes, uncomplicated; G62.1 Alcoholic polyneuropathy; E11.42 Type 2 diabetes mellitus with diabetic polyneuropathy; B18.2 Chronic viral hepatitis C; Z22.322 Carrier or suspected carrier of Methicillin resistant Staphylococcus aureus; L23.1 Allergic contact dermatitis due to adhesives; Z79.891 Long term (current) use of opiate analgesic; Z79.84 Long term (current) use of oral hypoglycemic drugs; Z79.899 Other long term (current) drug therapy; Z89.431 Acquired absence of right foot

== ENCOUNTER → 2017-03-31 | Outpatient (REF) | payer BC | LOC: M SFHCPLAZ 18:11 | PROVIDERS: ATTEND Family Medicine | DX: K70.30 Alcoholic cirrhosis of liver without ascites (principal); Z53.9 Procedure and treatment not carried out, unspecified reason ==

== ENCOUNTER → 2017-04-16 | Outpatient (CLI) | payer BC ==
[~2017-04-16] MED LIST changes: +MORPHINE IR PO
--- NOTE | 2017-04-29 01:51 | ECWPNPC ---
PATIENT NAME: ESTER DAMICO : 1970 GENDER: FEMALE VISIT DATE: 04/16/2017 DISCHARGE DATE: 04/16/17 1000 VISIT LOCKED DATE TIME: PHYSICIAN: HI THOMAS RESOURCE: HI THOMAS REASON FOR APPOINTMENT 1. FOOT PAIN HISTORY OF PRESENT ILLNESS HISTORY OF PRESENT ILLNESS: PAIN THE PATIENT DESCRIBES THE PAIN... 46 YEAR OLD FEMALE PATIENT WITH HISTORY OF CHRONIC FEET PAIN. PATIENT DESCRIBES THE PAIN SQUISHY AND TINGLY WITH A PAIN SCORE OF 6/10. PATIENT IS CURRENTLY USING MORPHINE SULPHATE, GABAPENTIN AND LYRICA FOR PAIN MANAGEMENT WHICH SHE STATES KEEPS HER MOBILE FUNCTIONAL. MRS. DAMICO HAS NOT BEEN CLEARED BY THE NEUROLOGIST FOR THE DCS AND REPORTS HAVING ANOTHER TEST IN APRIL. PATIENT DENIES UNEXPLAINABLE WEIGHT LOSS, FEVER, CHILLS, NEW CHANGES ON HER URINARY OR BOWEL CONTROL. FALL RISK SCREENING: SCREENING :NO FALLS IN THE PAST YEAR CURRENT MEDICATIONS TAKING MORPHINE SULFATE ER 15 MG TABLET EXTENDED RELEASE 1 TABLET ORALLY FOR PAIN TWICE DAILY FOR PAIN TAKING MORPHINE SULFATE 15 MG TABLET 1 TABLET NEEDED ORALLY DAILY FOR PAIN TAKING SPIRONOLACTONE 100 MG TABLET 1 TABLET ORALLY DAILY TAKING METFORMIN HCL 1000 MG TABLET 1 TABLET WITH MEALS ORALLY TWICE A DAY TAKING MIRALAX 1 PACKET 1 PACKET MIXED WITH 8 OUNCES OF FLUID ORALLY TWICE DAILY NEEDED TAKING MULTIVITAMINS VITAMIN CAPSULE 1 TAB(S) ORALLY DAILY TAKING TORSEMIDE 20 MG TABLET 1.5 TABLETS ORALLY ONCE DAILY TAKING SENNA S 8.6-50 MG TABLET 4-5 TABLETS ORALLY TWICE DAILY TAKING LYRICA 300 MG CAPSULE 1 CAPSULE ORALLY TWICE A DAY TAKING TRAMADOL HCL 50 MG TABLET 1-2 TABLET NEEDED ORALLY EVERY 6 HRS (MDD:6) DISCONTINUED LAC-HYDRIN 12 % CREAM 1 APPLICATION TO AFFECTED AREA EXTERNALLY TO FEET TWICE A DAY MEDICATION LIST REVIEWED AND RECONCILED WITH THE PATIENT PAST MEDICAL HISTORY HEPATITIS C CHRONIC GENOTYPE 1A VIRAL LOAD 14 MILLION IN 2007 TREATED WITH 3 MONTHS OF PEG-INTRON AND RIBAVIRIN WITH NONCOMPLIANCE 2007, TREATED WITH HARVONI FOR 6 MONTHS CURED ALCOHOLISM CIRRHOSIS WITH ASCITES AND LOWER EXTREMITY EDEMA, 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 MILD VARICES AND GASTROPATHY HISTORY OF IV DRUG USE QUIT 25 YEARS AGO SYPHILIS LIVER DECOMPENSATION CELLULITIS OF LEG WITHOUT FOOT, LEFT RIGHT 2ND, 3RD, 4TH TOES FX' PARTIAL RIGHT FOOT AMPUTATED ALLERGIES NONE BANDAIDES/TAPE: RASH SURGICAL HISTORY TUBAL LIGATION 1991 CARDIAC ABLATION [facility] 07/14/2014 ENDOSCOPY 3 SURGERIES ON FEET- REMOVAL OF PIECE OF BONE 04/01 I&D R FOOT 08/19/2016 RIGHT GREAT TOE JOINT REMOVED 08/2016 PARTIAL RIGHT FOOT AMPUTATION 11/2016 FAMILY HISTORY FATHER: ALIVE MOTHER: ALIVE SIBLINGS: ALIVE SON(S): ALIVE DAUGHTER(S): ALIVE 2 BROTHER(S) , 1 SISTER(S) - HEALTHY. 1 SON(S) , 1 DAUGHTER(S) - HEALTHY. SOCIAL HISTORY GENERAL: TOBACCO USE ARE YOU A:CURRENT SMOKER HOW MANY CIGARETTES A DAY DO YOU SMOKE?11-20 HOW SOON AFTER YOU WAKE UP DO YOU SMOKE YOUR FIRST CIGARETTE?WITHIN 5 MIN HOW OFTEN DO YOU SMOKE CIGARETTES?EVERY DAY PATIENT COUNSELED ON THE DANGERS OF TOBACCO USE AND URGED TO QUIT:03/31/2017 COUNCELLED IMPORTANCE OF QUITTING ARE YOU INTERESTED IN QUITTING?NOT READY TO QUIT COUNSELED THE PATIENT ON SMOKING EFFECTS, EDUCATION [id number]/15/2017 ALCOHOL SCREENING DID YOU HAVE A DRINK CONTAINING ALCOHOL IN THE PAST YEAR?NO POINTS0 INTERPRETATIONNEGATIVE RECREATIONAL DRUG USE DRUG USE?YES CAFFEINE CAFFEINE USE?NO SEXUAL HX HAD SEX IN THE LAST 12 MONTHS (VAGINAL, ORAL, OR ANAL)?YES WITHMEN ONLY OCCUPATION: UNEMPLOYED. DIET: REGULAR. EXERCISE: NO REGULAR EXERCISE. MARITAL STATUS: . OTHERS AT HOME: SPOUSE, CHILD. PETS: NONE. GNOSTICISM NO EPISCOPAL BELIEFS THAT WOULD IMPACT HEALTH CARE. LANGUAGE BOTSWANAN. 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 0. PAIN CLINIC PFS, CLERGY, PUBLIC HEALTH REFERRALS PFS REFERRAL NEEDED?NO CLERGY REFERRAL NEEDED?NO PUBLIC HEALTH REFERRAL NEEDED?NO WAS THE PROVIDER NOTIFIED OF ANY PERTINENT INFO?YES HOSPITALIZATION/MAJOR DIAGNOSTIC PROCEDURE ADMITTED DUE TO INFECTION 03/2016 ADMITTED FOR INFECTION 11/2016 REVIEW OF SYSTEMS CONSTITUTIONAL: ANY CHANGE IN YOUR MEDICAL CONDITION? NO . CHILLS NO . FEVER NO . INFECTION: DO YOU HAVE NEW INFECTIONS? NO . DO YOU HAVE HISTORY OF MRSA? NO . MUSCULOSKELETAL: ANY NEW PATTERNS OF PAIN OR NUMBNESS? NO . GASTROENTEROLOGY: ANY NEW CHANGE IN BOWEL CONTROL? NO . GENITOURINARY: ANY NEW CHANGE IN BLADDER CONTROL? NO . IS THERE A CHANCE YOU COULD BE ? NO . HEMATOLOGY/LYMPH: DO YOU TAKE ANY BLOOD THINNERS? (FOR EXAMPLE- COUMADIN, PLAVIX, AGGRENOX, PLATEL, PRADAXA, OR XARELTO) NO . WHEN WAS YOUR LAST DOSE? DATE: TIME: . NEUROLOGY: HAVE YOU FALLEN IN THE PAST 6 MONTHS? YES . ANY NEW EXTREMITY NUMBNESS OR WEAKNESS? NO . CARDIOLOGY: DO YOU HAVE A PACEMAKER OR DEFIBRILLATOR? NO . RESPIRATORY: HAVE YOU BEEN SICK IN THE PAST WEEK? NO . FEVER NO . FLU LIKE SYMPTOMS? NO . COUGH NO . INTEGUMENTARY: DO YOU HAVE ANY RASHES OR OPEN SORES? NO . ALLERGIC/IMMUNO: ARE YOU ALLERGIC TO SHELLFISH OR IV DYE? NO . ANY NEW ALLERGIES? NO . PSYCHIATRIC: DO YOU HAVE THOUGHTS OF HURTING YOURSELF OR SOMEONE ELSE? NO . ARE YOU ABUSED, NEGLECTED, OR IN AN UNSAFE ENVIRONMENT? NO . ENDOCRINOLOGY: ARE YOU DIABETIC? YES . OTHER: DO YOU NEED ANY PRESCRIPTIONS? NO . IF YES, PLEASE LIST: ____ . ANY NEW PROBLEMS WITH YOUR MEDICATIONS? NO . WHEN DID YOU LAST EAT? ____ . WHEN DID YOU LAST DRINK? ____ . WHAT DID YOU LAST DRINK? ____ . NAME OF PERSON DRIVING YOU HOME? ____ . DO YOU HAVE ANY OTHER QUESTIONS OR CONCERNS NO . REVIEWED BY: PROVIDER: HI THOMAS MD . VITAL SIGNS WT 157.6 LBS, HT 64.5 IN, BMI 26.63 INDEX, BP 108/70 MM HG, HR 83 /MIN, RR 16 /MIN, TEMP 98.1 F, OXYGEN SAT % 98%, NA INITIALS LC 0858, REVIEWED BY: CM. EXAMINATION : PATIENT IS ALERT O X 3 AND COOPERATIVE. TENDERNESS IN BOTH FEET WITH HYPERPATHIA. MRI OF LUMBAR AND THORACIC SPINE SHOWS ENOUGH ROOM FOR THE LEADS TO PASS THROUGH. PENDING CLEARANCE FROM NEUROLOGY. ASSESSMENTS POLYNEUROPATHY, UNSPECIFIED - G62.9 PERIPHERAL NEUROPATHY OF THE LOWER EXTREMITIES. TREATMENT OTHERS NOTES: WE DISCUSSED SEVERAL ISSUES WITH MRS. DAMICO'S PAIN MANAGEMENT CASE. AT THIS TIME THE PATIENT WILL CONTINUE WITH THE SAME MEDICATION REGIME UNTIL THE TRIAL. PATIENT IS AWARE THAT SHE WILL NEED TO WEEN HERSELF OF THE PAIN MEDICATION AND STOP USING IBUPROFEN, BLOOD THINNERS, AND FISH OIL. MRS. DAMICO WILL USE MULTIPLE ANTIBIOTICS PRIOR TO THE TRIAL TO PREVENT ANY TYPE OF INFECTION. PATIENT IS AWARE WE NEED A CLEARANCE FROM NEUROLOGY WELL AT THE PRIMARY CARE TO PROCEED. MRS. DAMICO WILL RETURN TO THE CLINIC PRIOR TO THE TRIAL TO MAKE SURE THAT THE PATIENT USED THE ANTIBIOTICS PROPERLY AND HAS THE CLEARANCES THAT ARE NEEDED. PATIENT REPORTS HAVING A HERNIA SURGERY AFTER THE TRIAL WHICH I WOULD LIKE HER TO SPEAK DIRECTLY WITH DR. MCNEIL SO THAT HE IS AWARE. INSTRUCTIONS WERE GIVEN, QUESTIONS WERE ANSWERED, PATIENT REPORTS UNDERSTANDING AND AGREES WITH THE PLAN. I, MARKY ONELIL, DOCUMENTED THE ABOVE INFORMATION ACTING A SCRIBE FOR DR. THOMAS. I HAVE REVIEWED THE ABOVE DOCUMENT, WRITTEN BY MARKY LOERA AND I VERIFY THAT IT IS ACCURATE. PROCEDURE CODES FA211 ESTABILISHED PATIENT [facility] FACILITY CHARGE G8730 PAIN ASSESS POS TOOL F/U PLAN DOC G8427 DOC MEDS VERIFIED W/PT OR RE DISPOSITION & COMMUNICATION FOLLOW UP 2 WEEKS ELECTRONICALLY SIGNED BY HI THOMAS MD ON 04/28/2017 AT 07:47 PM EDT DISCLAIMER : THIS IS A VISIT SUMMARY EXTRACTED FROM THE [employer] EXIM CHART. IT IS NOT A COPY OF THE [employer] PROGRESS NOTE. MTDD
== END ==
LOC: M PAIN 08:40
PROVIDERS: ATTEND Anesthesiology
DX: G89.29 Other chronic pain (principal); G62.9 Polyneuropathy, unspecified; M79.671 Pain in right foot; M79.672 Pain in left foot; B18.2 Chronic viral hepatitis C; E11.621 Type 2 diabetes mellitus with foot ulcer; F10.10 Alcohol abuse, uncomplicated; F17.210 Nicotine dependence, cigarettes, uncomplicated; K70.30 Alcoholic cirrhosis of liver without ascites; L23.1 Allergic contact dermatitis due to adhesives; Z79.891 Long term (current) use of opiate analgesic; Z79.84 Long term (current) use of oral hypoglycemic drugs; Z79.899 Other long term (current) drug therapy; Z89.421 Acquired absence of other right toe(s); Z89.431 Acquired absence of right foot; Z22.322 Carrier or suspected carrier of Methicillin resistant Staphylococcus aureus

== ENCOUNTER → 2017-04-24 | Outpatient (CLI) | payer BC ==
[2017-04-24 14:38] LABS: ANION GAP 6 MEQ/L (8-16); BLOOD UREA NITROGEN 24 MG/DL (7-18); CALCIUM LEVEL 9.5 MG/DL (8.5-10.1); CARBON DIOXIDE LEVEL 29 MEQ/L (21-32); CHLORIDE LEVEL 106 MEQ/L (98-107); CREATININE FOR GFR 1.12 MG/DL (0.55-1.02); GLOMERULAR FILTRATION RATE > 60.0 (>58); GLUCOSE, FASTING 110 MG/DL (70-105); POTASSIUM SERUM 4.6 MEQ/L (3.5-5.1); SODIUM LEVEL 141 MEQ/L (136-145)
[2017-04-24 14:47] LABS: BLOOD UREA NITROGEN 25 MG/DL (7-18); GLUCOSE, FASTING 111 MG/DL (70-105)
[2017-04-24 14:48] LABS: ALBUMIN 3.8 GM/DL (3.2-5.2); ALBUMIN/GLOBULIN RATIO 0.93 (1.00-1.93); ALKALINE PHOSPHATASE 76 U/L (45-117); ALT/SGPT 29 U/L (12-78); ANION GAP 7 MEQ/L (8-16); AST/SGOT 24 U/L (15-37); BILIRUBIN,DIRECT < 0.1 MG/DL (0.0-0.2); BILIRUBIN,TOTAL 0.2 MG/DL (0.2-1.0); CALCIUM LEVEL 8.9 MG/DL (8.5-10.1); CARBON DIOXIDE LEVEL 29 MEQ/L (21-32); CHLORIDE LEVEL 106 MEQ/L (98-107); GLOMERULAR FILTRATION RATE 56.4 (>58); POTASSIUM SERUM 4.6 MEQ/L (3.5-5.1); SODIUM LEVEL 142 MEQ/L (136-145); TOTAL PROTEIN 7.9 GM/DL (6.4-8.2)
== END ==
LOC: M SMT 10:52
PROVIDERS: ATTEND Family Medicine
DX: K70.30 Alcoholic cirrhosis of liver without ascites (principal)

== ENCOUNTER → 2017-04-24 | Outpatient (CLI) | payer BC ==
[2017-04-24 14:53] LABS: CREATININE FOR GFR 1.12 MG/DL (0.55-1.02); GLOMERULAR FILTRATION RATE 55.3 (>58)
== END ==
LOC: M SMT 10:49
PROVIDERS: ATTEND Surgery
DX: K59.00 Constipation, unspecified (principal)

== ENCOUNTER → 2017-04-25 | Outpatient (CLI) | payer BC ==
[~2017-04-25] MED LIST changes: +GASTROGRAFIN SOLUTION 30ML (Q9963) As Ordered ONE; +ISOVUE-370 76% 100ML VIAL (Q9967) As Ordered ONE
--- NOTE | 2017-04-25 12:45 | REP ---
CT abdomen and pelvis with IV and oral contrast: History: Abdominal pain. Constipation. The patient also gives a history of hepatitis C and cirrhosis. Comparison CT study August 08, 2013. CT contrast dose: 100 mL of Isovue 370 is administered intravenously. Findings: Digital preliminary accounting software specialist radiograph shows moderate left colonic stool. The lung bases remain clear. A micronodular liver contour is again seen. Umbilical vein is recannulated. The spleen is borderline measuring 12.5 cm in diameter as before. These findings are compatible with cirrhosis. There is a large gallstone visible in the gallbladder. This is a radiolucent stone measuring 2.0 cm in diameter. No biliary ductal dilation is observed. No adrenal lesion is seen on either side. There is an accessory splenule. No pancreatic abnormality is appreciated. The kidneys enhance symmetrically post contrast and appear morphologically intact. Small and large intestinal bowel loops are unremarkable in the upper abdomen. There is a periumbilical fluid collection in the anterior subcutaneous fat layer adjacent to the anterior abdominal wall just to the right of midline. This measures 2.9 x 2.9 x 3.5 cm. A tiny periumbilical hernia is likely present. No other abdominal wall defect is seen. There is mild to moderate stool in the left colon as seen on the accounting software specialist view. No geremias colonic distension is noted. No uterine lesion is seen. There is a 2.4 cm cyst in the left adnexa. This could be an ovarian cyst. No bony destructive lesion is seen. Impression: Evidence of cirrhosis with some abdominal venous collaterals as before. Cholelithiasis. Tiny paraumbilical ventral hernia suspected with an associated periumbilical fluid collection in the anterior wall abdomen involving the subcutaneous fat. 2.4 cm cyst left ovary. Signed by Adama Car MD 04/25/2017 01:22 P
== END ==
LOC: M RAD 09:03
PROVIDERS: ATTEND Surgery
DX: K59.00 Constipation, unspecified (principal); K42.9 Umbilical hernia without obstruction or gangrene; K80.20 Calculus of gallbladder without cholecystitis without obstruction; N83.292 Other ovarian cyst, left side; K74.60 Unspecified cirrhosis of liver
CPT/HCPCS: 74177; Q9963; Q9967

== ENCOUNTER → 2017-05-01 | Outpatient (CLI) | payer BC ==
[~2017-05-01] MED LIST changes: -GASTROGRAFIN SOLUTION 30ML (Q9963) As Ordered ONE; -ISOVUE-370 76% 100ML VIAL (Q9967) As Ordered ONE
--- NOTE | 2017-05-10 00:10 | ECWPNPC ---
PATIENT NAME: ESTER DAMICO : 1970 GENDER: FEMALE VISIT DATE: 05/01/2017 DISCHARGE DATE: 05/01/17 1720 VISIT LOCKED DATE TIME: PHYSICIAN: HI THOMAS RESOURCE: HI THOMAS REASON FOR APPOINTMENT 1. FOOT PAIN HISTORY OF PRESENT ILLNESS HISTORY OF PRESENT ILLNESS: PAIN THE PATIENT DESCRIBES THE PAIN... 46 YEAR OLD FEMALE PATIENT WITH HISTORY OF CHRONIC FEET PAIN. PATIENT DESCRIBES THE PAIN SQUISHY AND TINGLY WITH A PAIN SCORE OF 8-9/10. PATIENT IS CURRENTLY USING MORPHINE SULPHATE, GABAPENTIN AND LYRICA FOR PAIN MANAGEMENT WHICH SHE STATES KEEPS HER MOBILE FUNCTIONAL. MRS. DAMICO HAS RECEIVED CLEARANCE FROM THE NEUROLOGIST FOR THE DCS. PATIENT HAS ALSO BEEN USING ANTIBIOTIC PRIOR TO THE TRIAL TO AVOID ANY TYPE OF INJECTION. MRS. DAMICO REPORTS HAVING WEANED OFF HER MEDICATION TO HAVE AN ACCURATE TRIAL. PATIENT DENIES UNEXPLAINABLE WEIGHT LOSS, FEVER, CHILLS, NEW CHANGES ON HER URINARY OR BOWEL CONTROL. FALL RISK SCREENING: SCREENING :NO FALLS IN THE PAST YEAR CURRENT MEDICATIONS TAKING SPIRONOLACTONE 100 MG TABLET 1 TABLET ORALLY DAILY TAKING MIRALAX 1 PACKET 1 PACKET MIXED WITH 8 OUNCES OF FLUID ORALLY TWICE DAILY NEEDED TAKING MULTIVITAMINS VITAMIN CAPSULE 1 TAB(S) ORALLY DAILY TAKING TORSEMIDE 20 MG TABLET 1.5 TABLETS ORALLY ONCE DAILY TAKING SENNA S 8.6-50 MG TABLET 4-5 TABLETS ORALLY TWICE DAILY TAKING LYRICA 300 MG CAPSULE 1 CAPSULE ORALLY TWICE A DAY TAKING TRAMADOL HCL 50 MG TABLET 1-2 TABLET NEEDED ORALLY EVERY 6 HRS (MDD:6) TAKING MUPIROCIN CALCIUM 2 % CREAM 1 APPLICATION TO AFFECTED AREA EXTERNALLY BID NOSE 1 WEEK BEFORE SURGERY TAKING METFORMIN HCL 1000 MG TABLET 1 TABLET WITH MEALS ORALLY TWICE A DAY TAKING MORPHINE SULFATE 15 MG TABLET 1 TABLET NEEDED ORALLY DAILY FOR PAIN TAKING MORPHINE SULFATE ER 15 MG TABLET EXTENDED RELEASE 1 TABLET ORALLY FOR PAIN TWICE DAILY FOR PAIN MEDICATION LIST REVIEWED AND RECONCILED WITH THE PATIENT PAST MEDICAL HISTORY HEPATITIS C CHRONIC GENOTYPE 1A VIRAL LOAD 14 MILLION IN 2007 TREATED WITH 3 MONTHS OF PEG-INTRON AND RIBAVIRIN WITH NONCOMPLIANCE 2007, TREATED WITH HARVONI FOR 6 MONTHS CURED ALCOHOLISM CIRRHOSIS WITH ASCITES AND LOWER EXTREMITY EDEMA, 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 MILD VARICES AND GASTROPATHY HISTORY OF IV DRUG USE QUIT 25 YEARS AGO SYPHILIS LIVER DECOMPENSATION CELLULITIS OF LEG WITHOUT FOOT, LEFT RIGHT 2ND, 3RD, 4TH TOES FX' PARTIAL RIGHT FOOT AMPUTATED ALLERGIES NONE BANDAIDES/TAPE: RASH REVIEW OF SYSTEMS REVIEWED BY: PROVIDER: . CONSTITUTIONAL: ANY CHANGE IN YOUR MEDICAL CONDITION? NO . CHILLS NO . FEVER NO . INFECTION: DO YOU HAVE NEW INFECTIONS? NO . DO YOU HAVE HISTORY OF MRSA? NO . MUSCULOSKELETAL: ANY NEW PATTERNS OF PAIN OR NUMBNESS? NO . GASTROENTEROLOGY: ANY NEW CHANGE IN BOWEL CONTROL? NO . GENITOURINARY: ANY NEW CHANGE IN BLADDER CONTROL? NO . IS THERE A CHANCE YOU COULD BE ? NO . HEMATOLOGY/LYMPH: DO YOU TAKE ANY BLOOD THINNERS? (FOR EXAMPLE- COUMADIN, PLAVIX, AGGRENOX, PLATEL, PRADAXA, OR XARELTO) NO . WHEN WAS YOUR LAST DOSE? DATE: TIME: . NEUROLOGY: HAVE YOU FALLEN IN THE PAST 6 MONTHS? NO . ANY NEW EXTREMITY NUMBNESS OR WEAKNESS? NO . CARDIOLOGY: DO YOU HAVE A PACEMAKER OR DEFIBRILLATOR? NO . RESPIRATORY: HAVE YOU BEEN SICK IN THE PAST WEEK? NO . FEVER NO . FLU LIKE SYMPTOMS? NO . COUGH NO . INTEGUMENTARY: DO YOU HAVE ANY RASHES OR OPEN SORES? NO . ALLERGIC/IMMUNO: ARE YOU ALLERGIC TO SHELLFISH OR IV DYE? NO . ANY NEW ALLERGIES? NO . PSYCHIATRIC: DO YOU HAVE THOUGHTS OF HURTING YOURSELF OR SOMEONE ELSE? NO . ARE YOU ABUSED, NEGLECTED, OR IN AN UNSAFE ENVIRONMENT? NO . ENDOCRINOLOGY: ARE YOU DIABETIC? YES . OTHER: DO YOU NEED ANY PRESCRIPTIONS? NO . IF YES, PLEASE LIST: ____ . ANY NEW PROBLEMS WITH YOUR MEDICATIONS? NO . WHEN DID YOU LAST EAT? ____ . WHEN DID YOU LAST DRINK? ____ . WHAT DID YOU LAST DRINK? ____ . NAME OF PERSON DRIVING YOU HOME? ____ . DO YOU HAVE ANY OTHER QUESTIONS OR CONCERNS NO . VITAL SIGNS WT 161.6 LBS, HT 64.5 IN, BMI 27.31 INDEX, BP 121/78 MM HG, HR 106 /MIN, RR 16 /MIN, TEMP 98.7 F, OXYGEN SAT % 98%, SAFE IN ENV? (Y/N) YES, NA INITIALS TL 1553, REVIEWED BY: YOEL. EXAMINATION : PATIENT IS ALERT O X 3 AND COOPERATIVE. TENDERNESS IN BOTH FEET WITH HYPERPATHIA. MRI OF LUMBAR AND THORACIC SPINE SHOWS ENOUGH ROOM FOR THE LEADS TO PASS THROUGH. PENDING CLEARANCE FROM NEUROLOGY. ASSESSMENTS POLYNEUROPATHY, UNSPECIFIED - G62.9 (PRIMARY) PERIPHERAL NEUROPATHY OF THE LOWER EXTREMITIES. TREATMENT POLYNEUROPATHY, UNSPECIFIED NOTES: WE DISCUSSED SEVERAL ISSUES WITH MRS. DAMICO'S PAIN MANAGEMENT CASE. AT THIS TIME THE PATIENT WILL CONTINUE TO WEAN OFF HER PAIN MEDICATIONS FOR THE TRIAL. PATIENT REPORTS USING ANTIBIOTICS AND SPECIAL BODY WASH 10 DAYS PRIOR TO THE DCS. PATIENT HAS RECEIVED CLEARANCES FROM ALL THE DOCTORS AND IS ABLE TO PROCEED FORWARD. PATIENT KNOWS THAT SHE SHOULD NOT USE MEDICATIONS DURING THE TRIAL TO HAVE AN ADEQUATE TRIAL. PATIENT WILL RETURN ON FRIDAY TO HAVE A LEAD PULL AND DISCUSS HOW THE DCS WORKS FOR THE PATIENT. INSTRUCTIONS WERE GIVEN, QUESTIONS WERE ANSWERED, PATIENT REPORTS UNDERSTANDING AND AGREES WITH THE PLAN. I, MARKY ONEILL, DOCUMENTED THE ABOVE INFORMATION ACTING A SCRIBE FOR DR. THOMAS. I HAVE REVIEWED THE ABOVE DOCUMENT, WRITTEN BY MARKY LOERA AND I VERIFY THAT IT IS ACCURATE. PROCEDURE CODES FA211 ESTABILISHED PATIENT [facility] FACILITY CHARGE G8427 DOC MEDS VERIFIED W/PT OR RE G8730 PAIN ASSESS POS TOOL F/U PLAN DOC DISPOSITION & COMMUNICATION FOLLOW UP DCS FRIDAY ELECTRONICALLY SIGNED BY HI THOMAS MD ON 05/09/2017 AT 08:20 AM EDT DISCLAIMER : THIS IS A VISIT SUMMARY EXTRACTED FROM THE [employer] CHART. IT IS NOT A COPY OF THE [employer] PROGRESS NOTE. MTDD
== END ==
LOC: M PAIN 15:40
PROVIDERS: ATTEND Anesthesiology
DX: G89.29 Other chronic pain (principal); G62.9 Polyneuropathy, unspecified; M79.671 Pain in right foot; M79.672 Pain in left foot; E11.621 Type 2 diabetes mellitus with foot ulcer; F10.10 Alcohol abuse, uncomplicated; K70.30 Alcoholic cirrhosis of liver without ascites; I47.1 Supraventricular tachycardia; F17.210 Nicotine dependence, cigarettes, uncomplicated; G62.1 Alcoholic polyneuropathy; B18.2 Chronic viral hepatitis C; L23.1 Allergic contact dermatitis due to adhesives; Z79.84 Long term (current) use of oral hypoglycemic drugs; Z79.891 Long term (current) use of opiate analgesic; Z79.899 Other long term (current) drug therapy; Z89.431 Acquired absence of right foot; Z22.322 Carrier or suspected carrier of Methicillin resistant Staphylococcus aureus

== ENCOUNTER 2017-05-05 11:09 | Day surgery (SDC) | payer BC ==
[~2017-05-05] VITALS: Ht 162.6 cm; Wt 72.6 kg
[~2017-05-05 11:09] MED LIST changes: +BUPIVACAINE HCL 0.25% 30 ML VIAL As Ordered ONE; +BUPIVACAINE/EPIN 0.25% 30 ML VIAL As Ordered ONE; +ISOVUE-300 61% 50ML VIAL (Q9967) As Ordered ONE; +LIDOCAINE 2% INJ 100 MG/5 ML SDV (FOR ANES.) As Ordered ONE; +LIDOCAINE W/EPINEPHRINE 1% 20ML VIAL As Ordered ONE; +MIDAZOLAM INJ 2 MG/2 ML VIAL (J2250) As Ordered ONE; +PROPOFOL 200 MG/20 ML VIAL As Ordered ONE; +fentaNYL 100 MCG/2 ML INJECTION (J3010) As Ordered ONE
[2017-05-05] MEDS ORDERED: LR 1,000 ML IV ONE (11:15)
[2017-05-05] MEDS ORDERED: ceFAZolin SOD 1 GM in D5W MINI-BAG PLUS 50 ML IV ONE (11:30)
[2017-05-05] MEDS ORDERED: VANCOMYCIN 1000 MG/20 ML VIAL (J3370) As Ordered ONE (11:53)
[2017-05-05] MEDS ORDERED: VANCOMYCIN HCL 1,000 MG, VIAL MATE ADAPTER 1 EACH in D5W 250 ML IV ONE (12:00)
[2017-05-05] MEDS ORDERED: PROPOFOL 200 MG/20 ML VIAL As Ordered ONE (13:53)
[2017-05-05] MEDS ORDERED: LIDOCAINE 2% INJ 100 MG/5 ML SDV (FOR ANES.) As Ordered ONE (13:53)
[2017-05-05] MEDS ORDERED: LR 1,000 ML IV SCH (15:00)
[2017-05-05] MEDS ORDERED: fentaNYL 100 MCG/2 ML INJECTION (J3010) IV PRN (15:00)
[2017-05-05] MEDS ORDERED: ONDANSETRON 4MG/2ML VIAL (J2405) IV PRN (15:00)
[2017-05-05] MEDS ORDERED: MORPHINE 30 MG TAB **MSIR PO PRN (15:00)
[2017-05-05 15:30] VITALS: BP 111/66
--- NOTE | 2017-05-05 15:51 | REP ---
C-ARM VIEWS THORACIC SPINE: Four C-arm views of the thoracic spine region performed during placement of dorsal column stimulator. The tip of the stimulator leads appears to be at the bottom of T10 vertebral body level. 3 minutes 58 seconds fluoroscopy time utilized. Signed by Mika Davis MD 05/05/2017 08:21 P
[2017-05-05 16:00] VITALS: BP 106/72
[2017-05-05] MEDS ORDERED: GLUCOSE 4 GM CHEW TABLET PO PRN (17:00)
[2017-05-05] MEDS ORDERED: DEXTROSE 50% 50 ML SYRINGE IV PRN (17:00)
[2017-05-05] MEDS ORDERED: GLUCAGON FOR INJ 1 MG VIAL (J1610) SC PRN (17:00)
[2017-05-05] MEDS: HumaLOG INSULIN (NovoLOG) PER UNIT SC SCH (17:30)
--- NOTE | 2017-05-05 19:38 | CR.PDOC ---
[facility] Consultation Consultation DATE OF CONSULTATION: May 05, 2017 at 11:09 PRIMARY CARE PHYSICIAN: [facility]ident [facility] REFERRING PROVIDER: Flaco Dela Cruz M.D. ATTENDING PHYSICIAN: Dr. Plata REASON FOR CONSULTATION/CHIEF COMPLAINT: . Management of medical comorbidities HISTORY OF PRESENT ILLNESS: . 46-year-old female with past medical history of diabetes mellitus, chronic kidney disease stage III, peripheral neuropathy, hepatitis C status post treatment with Harvoni, alcohol abuse, cirrhosis with lower extremity edema, esophageal varices, and chronic pain was admitted to [facility] by the pain management attending following placement of a spinal cord stimulator trial. At this time, the patient denies any acute complaints of fevers, chills, chest pain, palpitations, shortness of breath, abdominal pain, or any nausea/vomiting/ diarrhea. The hospitalist team has been consulted for medical management ALLERGIES: Please see below. HOME MEDICATIONS: Please see below. PAST MEDICAL HISTORY: As noted in HPI. PAST SURGICAL HISTORY: TUBAL LIGATION 1992 [facility]AC [facility] 07/14/2014 ENDOSCOPY 3 SURGERIES ON FEET- REMOVAL OF PIECE OF BONE 04/01 I&D R FOOT 08/19/2016 RIGHT GREAT TOE JOINT REMOVED 08/2016 PARTIAL RIGHT FOOT AMPUTATION 11/2016 FAMILY HISTORY: Noncontributory SOCIAL HISTORY: Smokes one pack per day of tobacco, denies any alcohol or illicit drug use REVIEW OF SYSTEMS: 10 point review of systems negative unless otherwise specified in HPI. PHYSICAL EXAMINATION: VITAL SIGNS: Please see below. GENERAL APPEARANCE: . Awake, alert, oriented HEENT: . Normocephalic, atraumatic RESPIRATORY: . Clear to auscultation bilaterally CARDIOVASCULAR: . Normal rate, normal rhythm ABDOMEN: . Soft, nontender, nondistended EXTREMITIES: . No erythema noted LABORATORY DATA: Please see below. ASSESSMENT/PLAN: Chronic pain status post spinal cord stimulator placement We'll defer pain management to the primary service Insulin-dependent diabetes mellitus We will continue the patient on an insulin sliding scale Chronic kidney disease stage III Serum creatinine appears to be at baseline Peripheral neuropathy Continue Lyrica Hepatitis C status post treatment with Harvoni HCV DNA PCR undetectable from October 2016 History of alcohol abuse, cirrhosis with lower extremity edema, esophageal varices Patient denies any alcohol use at this time Continue diuretics as ordered DVT prophylaxis Heparin subcutaneous Vital Signs/I&O Vital Signs Date Time Temp Pulse Resp B/P (MAP) Pulse Ox O2 Delivery O2 Flow Rate FiO2 05/05/17 18:16 18 05/05/17 16:00 97.6 86 106/72 (83) 94 Room Air 05/05/17 15:10 2 Laboratory Data Labs 24H Laboratory Tests 2 05/05/17 12:27: Bedside Glucose (Misc Panel) 142H 05/05/17 14:40: Bedside Glucose (Misc Panel) 139H Allergies Coded Allergies: No Known Drug Allergy (Unverified Allergy, Unknown, 02/22/13) Home Medications Scheduled (Multi Vitamin Daily) 1 Tab Tab, 1 TAB PO DAILY, (Reported) Docusate Sod/Senna (Senna S 8.6-50 mg) 1 Tab Tab, 6 TAB PO BID, (Reported) Metformin Hydrochloride (Metformin HCl) 1,000 Mg Tab, 1,000 MG PO BID, (Reported ) Morphine Sulfate (Morphine Sulfate ER) 15 Mg Tab, 15 MG PO BID, (Reported) Pregabalin (Lyrica) 200 Mg Cap, 600 MG PO BID, (Reported) Spironolactone (Spironolactone) 100 Mg Tab, PO DAILY, #30 (Reported) Torsemide (Torsemide) 20 Mg Tab, 40 MG PO DAILY, (Reported) Torsemide (Torsemide) 20 Mg Tab, 20 MG PO DAILY, (Reported) [Morphine Ir] , 15 MG PO DAILY, (Reported) Scheduled PRN Oxycodone HCl (Oxycodone HCl) 5 Mg Tab, 5 MG PO Q4H PRN for PAIN, (Reported) Tramadol HCl (Tramadol HCl) 50 Mg Tab, 50 MG PO Q4HP PRN for PAIN, (Reported) FLACO DELA CRUZ MD May 05, 2017 19:38
[2017-05-05 20:00] VITALS: BP 107/58
[2017-05-05] MEDS ORDERED: VANCOMYCIN HCL 1,000 MG, VIAL MATE ADAPTER 1 EACH in D5W 250 ML IV SCH (20:00)
[2017-05-05] MEDS ORDERED: HumaLOG INSULIN (NovoLOG) PER UNIT SC SCH (21:00)
[2017-05-05] MEDS ORDERED: PREGABALIN 100 MG CAP (LYRICA) PO SCH (21:00)
[2017-05-05] MEDS ORDERED: MORPHINE 15 MG SA TAB PO SCH (21:00)
[2017-05-05] MEDS ORDERED: SENOKOT S TAB PO SCH ×2 (21:00)
[2017-05-05] MEDS: HEPARIN SOD (PORCINE) 5000 UNITS/ML VIAL SQ SCH (22:00)
[2017-05-06 02:00] VITALS: BP 92/56
[2017-05-06] MEDS ORDERED: VANCOMYCIN HCL 1,000 MG, VIAL MATE ADAPTER 1 EACH in D5W 250 ML IV SCH (04:00)
[2017-05-06 06:00] VITALS: BP 116/75
[2017-05-06] MEDS: HEPARIN SOD (PORCINE) 5000 UNITS/ML VIAL SQ SCH (06:00)
[2017-05-06] MEDS: HumaLOG INSULIN (NovoLOG) PER UNIT SC SCH (07:28)
[2017-05-06] MEDS ORDERED: TORSEMIDE 20 MG TAB PO SCH ×2 (09:00)
--- NOTE | 2017-05-06 16:10 | IPNPDOC ---
Text Note Date of Service The patient was seen on 05/06/17. NOTE Subjective: Patient is a 46 year old female with a PMHx of DM2, CKD3, Peripheral neuropathy, Hepatitis C (s/p treatment with Harvoni), Alcohol abuse, Cirrhosis ( w/ LE edema, esophageal varices and chronic pain) who presented to [facility] for an elective spinal stimulator placement with Dr. Plata. Hospitalist team was consulted for medical management. Patient was seen and examined at the bedside. She was insistent about leaving the hospital. She had new medical complaints at this time. Objective: Vitals (See below) General: Lying in bed, no acute distress, comfortable, AAOx3 HEENT: NC, AT CVS: RRR, +S1S2 Lungs: Fair air entry b/l, -w/r/r Abdomen: Soft, ND, NT, +BSx4 Extremities: +PPx4, - Edema, - Calf tenderness Assessment and plan: 1. Chronic pain - s/p Spinal cord Stimulator placement - notes that there has not been a significant change since the procedure - management as per primary team 2. IDDM2 - c/w ISS 3. CKD3 - Creatinine is at baseline 4. Peripheral neuropathy - c/w Lyrica 5. Hepatitis C - s/p treatment with Harvoni - Undetectable viral load (HCV DNA PCR) on 10/2016 6. Alcohol abuse - reports that she does not use any alcohol at this time 7. Cirrhosis - possibly 2/2 alcohol abuse and Hepatitis C - Has history of LE edema and varices - c/w diuretics 8. DVT prophylaxis - c/w Heparin SQ VS,Fishbone, I+O VS, Fishbone, I+O Vital Signs Date Time Temp Pulse Resp B/P (MAP) Pulse Ox O2 Delivery O2 Flow Rate FiO2 05/06/17 06:00 97.9 75 18 116/75 (89) 96 Room Air 05/05/17 15:10 2 I&O- Last 24 Hours up to 6 AM 05/06/17 06:00 Intake Total 595 ml Output Total 0 ml Balance 595 ml ISMAEL HARVEY MD May 06, 2017 16:10
--- NOTE | 2017-05-12 12:11 | ROPAIN ---
DATE OF PROCEDURE: 05/05/2017 PREOPERATIVE DIAGNOSIS: Peripheral neuropathy of the lower extremities. POSTOPERATIVE DIAGNOSIS: Peripheral neuropathy of the lower extremities. PROCEDURE: Spinal column stimulator trial. SURGEON: Dr. Brody Plata CAR DUMPER OPERATOR: ANESTHESIA: Local with monitored anesthesia care. PREOPERATIVE NOTE: Ms. Augustin is a 46-year-old female patient with history of chronic peripheral lower extremity pain. I evaluated the patient, reviewed the chart. Discussed alternatives with Ms. Augustin. I went through risks, alternatives and benefits associated with a spinal column stimulator trial and the patient expressed that she would like to proceed. I explained to Ms. Augustin the importance of having a successful trial with over 80% reduction of her pain, as well as discussed with her during the previous visit at the pain center, which she reports understanding. The patient denies unexplainable weight loss, fever, chills, changes in her urinary or bowel control. PROCEDURE NOTE: After consent was taken, the patient was brought to the procedure room and placed in the prone position. Thoracolumbar area was cleaned with Betadine solution and draped aseptically. The procedure was done under sterile conditions. Patient received vancomycin 1 gram IV before we start. Target was selected at the intralaminar level of L1 and L2. Lidocaine was used to numb the skin and the tissue below it. Epimed needle was advanced on the left lamina of L2 was touched and then, by the loss of resistance technique the epidural space was reached 7 cm deep into the skin by the loss of resistance technique. A 16 contact lead from [employer] was advanced through this Tuohy needle through the posterior medial aspect of the epidural space until we reached the level of approximately of T11. The decision was made to place a second lead. On this occasion, target was selected at interlaminar level of L2 and L3. A second Touhy needle was used. I used local anesthesia to numb the skin and subcutaneous tissue below it. The second Touhy needle was advanced until the left lamina of L3 was touched and then by the loss of resistance technique the epidural space was reached 6 cm deep into the skin by the loss of resistance technique. Then, a second 16 contact lead from [employer] was advanced through the posterior and medial aspect of the epidural space. The second lead was placed parallel to the first one. After both leads were in position as we viewed in the AP and lateral views, extension cables were attached to the leads, which were given to the dealer compliance representative of [employer]. I started to do programming, which was done in 30 minutes. This was a simple 30 minutes programming where I changed the contact used both attached to the direction of the current. The final position of the leads was mainly covering the level of T11 and T12 as seen in the AP and lateral views. Pictures of the position of the leads were done for future reference in the AP and lateral views. After patient was satisfied with the position of the leads, I removed the extensions. I removed the stylets and I attached the leads to the patient's skin with Steri-Strip and Tegaderm's. The patient was sent to the recovery room to start the trial There was no evidence blood, paraesthesia, cerebrospinal fluid. There was no complication during the procedure.
== END 2017-05-06 08:30 | disposition home or self-care (01) ==
LOC: M SDC 11:09 → M MS5PR 15:15 → M SDC 05-06 08:30
PROVIDERS: ATTEND Anesthesiology
DX: G62.9 Polyneuropathy, unspecified (principal); E11.9 Type 2 diabetes mellitus without complications; Z79.899 Other long term (current) drug therapy; F17.210 Nicotine dependence, cigarettes, uncomplicated; N18.3 Chronic kidney disease, stage 3 (moderate); F10.10 Alcohol abuse, uncomplicated; K74.69 Other cirrhosis of liver
CPT/HCPCS: 63650; 77002; C1778; J0690; J2250; J3010; J3370

== ENCOUNTER → 2017-05-09 | Outpatient (CLI) | payer BC ==
[~2017-05-09] MED LIST changes: -BUPIVACAINE HCL 0.25% 30 ML VIAL As Ordered ONE; -BUPIVACAINE/EPIN 0.25% 30 ML VIAL As Ordered ONE; -DOCU100C PO; +DOCU100C16 PO; -ISOVUE-300 61% 50ML VIAL (Q9967) As Ordered ONE; +KEFL500C17 PO; -KEFL500C7 PO; -LIDOCAINE 2% INJ 100 MG/5 ML SDV (FOR ANES.) As Ordered ONE; -LIDOCAINE W/EPINEPHRINE 1% 20ML VIAL As Ordered ONE; -METF1000 PO; +METF10004 PO; -MIDAZOLAM INJ 2 MG/2 ML VIAL (J2250) As Ordered ONE; +PERC5TAB12 PO; -PERC5TAB6 PO; -PROPOFOL 200 MG/20 ML VIAL As Ordered ONE; -fentaNYL 100 MCG/2 ML INJECTION (J3010) As Ordered ONE
--- NOTE | 2017-05-09 16:33 | REP ---
FLUOROSCOPIC GUIDANCE: The images were reviewed with Dr. Davis. The patient has a history of back pain. The portable C-arm was provided in the OR for Dr. Douglas for fluoroscopic guidance. Two intraoperative fluoroscopic spot films were obtained for dorsal column stimulator lead removal. The films are on the PACs system and are available for review. 8 seconds of fluoroscopic time was utilized for this procedure. Reviewed by JARETT Pereira 05/09/2017 05:43 PEdited and Signed by Mika Davis MD 05/26/2017 11:39 A
--- NOTE | 2017-05-20 23:11 | ECWPNPC ---
PATIENT NAME: ESTER DAMICO : 1970 GENDER: FEMALE VISIT DATE: 05/09/2017 DISCHARGE DATE: 05/09/17 1537 VISIT LOCKED DATE TIME: PHYSICIAN: HI THOMAS RESOURCE: HI THOMAS REASON FOR APPOINTMENT 1. FEET PAIN HISTORY OF PRESENT ILLNESS HISTORY OF PRESENT ILLNESS: PAIN THE PATIENT DESCRIBES THE PAIN... 46 YEAR OLD FEMALE PATIENT WITH HISTORY OF CHRONIC FEET PAIN. PATIENT DESCRIBES THE PAIN SQUISHING WITH A PAIN SCORE OF 4/10. PATIENT STATES THAT THE DCS GAVE HER OVER 70% RELIEF FROM HER FEET PAIN. MRS. DAMICO STATES SHE DID NOT HAVE TO USE ANY PAIN MEDICATION FRIDAY AND WAS ABLE TO FUNCTION. PATIENT DENIES UNEXPLAINABLE WEIGHT LOSS, FEVER, CHILLS, NEW CHANGES ON HER URINARY OR BOWEL CONTROL. FALL RISK SCREENING: SCREENING :NO FALLS IN THE PAST YEAR CURRENT MEDICATIONS TAKING MIRALAX 1 PACKET 1 PACKET MIXED WITH 8 OUNCES OF FLUID ORALLY TWICE DAILY NEEDED TAKING MULTIVITAMINS VITAMIN CAPSULE 1 TAB(S) ORALLY DAILY TAKING TORSEMIDE 20 MG TABLET 1.5 TABLETS ORALLY ONCE DAILY TAKING SENNA S 8.6-50 MG TABLET 4-5 TABLETS ORALLY TWICE DAILY TAKING LYRICA 300 MG CAPSULE 1 CAPSULE ORALLY TWICE A DAY TAKING MUPIROCIN CALCIUM 2 % CREAM 1 APPLICATION TO AFFECTED AREA EXTERNALLY BID NOSE 1 WEEK BEFORE SURGERY TAKING METFORMIN HCL 1000 MG TABLET 1 TABLET WITH MEALS ORALLY TWICE A DAY TAKING MORPHINE SULFATE 15 MG TABLET 1 TABLET NEEDED ORALLY DAILY FOR PAIN TAKING MORPHINE SULFATE ER 15 MG TABLET EXTENDED RELEASE 1 TABLET ORALLY FOR PAIN TWICE DAILY FOR PAIN TAKING SPIRONOLACTONE 100 MG TABLET 1 TABLET ORALLY DAILY TAKING CLINDAMYCIN HCL 300 MG CAPSULE 1 CAPSULE ORALLY THREE TIMES DAILY MDD3 TAKING TRAMADOL HCL 50 MG TABLET 1-2 TABLET NEEDED ORALLY EVERY 6 HRS (MDD:6) MEDICATION LIST REVIEWED AND RECONCILED WITH THE PATIENT PAST MEDICAL HISTORY HEPATITIS C CHRONIC GENOTYPE 1A VIRAL LOAD 14 MILLION IN 2007 TREATED WITH 3 MONTHS OF PEG-INTRON AND RIBAVIRIN WITH NONCOMPLIANCE 2007, TREATED WITH HARVONI FOR 6 MONTHS CURED ALCOHOLISM CIRRHOSIS WITH ASCITES AND LOWER EXTREMITY EDEMA, 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 MILD VARICES AND GASTROPATHY HISTORY OF IV DRUG USE QUIT 25 YEARS AGO SYPHILIS LIVER DECOMPENSATION CELLULITIS OF LEG WITHOUT FOOT, LEFT RIGHT 2ND, 3RD, 4TH TOES FX' PARTIAL RIGHT FOOT AMPUTATED ALLERGIES NONE BANDAIDES/TAPE: RASH SURGICAL HISTORY TUBAL LIGATION 1991 CARDIAC ABLATION [facility] 07/14/2014 ENDOSCOPY 3 SURGERIES ON FEET- REMOVAL OF PIECE OF BONE 04/01 I&D R FOOT 08/19/2016 RIGHT GREAT TOE JOINT REMOVED 08/2016 PARTIAL RIGHT FOOT AMPUTATION 11/2016 DORSAL COLUMN STIMULATOER, TEMPORARY 04/2017 HOSPITALIZATION/MAJOR DIAGNOSTIC PROCEDURE ADMITTED DUE TO INFECTION 03/2016 ADMITTED FOR INFECTION 11/2016 REVIEW OF SYSTEMS REVIEWED BY: PROVIDER: . CONSTITUTIONAL: ANY CHANGE IN YOUR MEDICAL CONDITION? NO . CHILLS NO . FEVER NO . INFECTION: DO YOU HAVE NEW INFECTIONS? NO . DO YOU HAVE HISTORY OF MRSA? NO . MUSCULOSKELETAL: ANY NEW PATTERNS OF PAIN OR NUMBNESS? NO . GASTROENTEROLOGY: ANY NEW CHANGE IN BOWEL CONTROL? NO . GENITOURINARY: ANY NEW CHANGE IN BLADDER CONTROL? NO . IS THERE A CHANCE YOU COULD BE ? NO . HEMATOLOGY/LYMPH: DO YOU TAKE ANY BLOOD THINNERS? (FOR EXAMPLE- COUMADIN, PLAVIX, AGGRENOX, PLATEL, PRADAXA, OR XARELTO) NO . WHEN WAS YOUR LAST DOSE? DATE: TIME: . NEUROLOGY: HAVE YOU FALLEN IN THE PAST 6 MONTHS? NO . ANY NEW EXTREMITY NUMBNESS OR WEAKNESS? NO . CARDIOLOGY: DO YOU HAVE A PACEMAKER OR DEFIBRILLATOR? NO . RESPIRATORY: HAVE YOU BEEN SICK IN THE PAST WEEK? NO . FEVER NO . FLU LIKE SYMPTOMS? NO . COUGH NO . INTEGUMENTARY: DO YOU HAVE ANY RASHES OR OPEN SORES? NO . ALLERGIC/IMMUNO: ARE YOU ALLERGIC TO SHELLFISH OR IV DYE? NO . ANY NEW ALLERGIES? NO . PSYCHIATRIC: DO YOU HAVE THOUGHTS OF HURTING YOURSELF OR SOMEONE ELSE? NO . ARE YOU ABUSED, NEGLECTED, OR IN AN UNSAFE ENVIRONMENT? NO . ENDOCRINOLOGY: ARE YOU DIABETIC? YES . OTHER: DO YOU NEED ANY PRESCRIPTIONS? NO . IF YES, PLEASE LIST: ____ . ANY NEW PROBLEMS WITH YOUR MEDICATIONS? NO . WHEN DID YOU LAST EAT? ____ . WHEN DID YOU LAST DRINK? ____ . WHAT DID YOU LAST DRINK? ____ . NAME OF PERSON DRIVING YOU HOME? ____ . DO YOU HAVE ANY OTHER QUESTIONS OR CONCERNS NO . VITAL SIGNS WT 158 LBS, HT 64.5 IN, BMI 26.70 INDEX, BP 123/82 MM HG, HR 84 /MIN, RR 16 /MIN, TEMP 97.8 F, OXYGEN SAT % 98, SAFE IN ENV? (Y/N) Y, REVIEWED BY: EM. EXAMINATION : PATIENT IS ALERT O X 3 AND COOPERATIVE. TENDERNESS IN BOTH FEET WITH HYPERPATHIA. ASSESSMENTS POLYNEUROPATHY, UNSPECIFIED - G62.9 (PRIMARY) TREATMENT POLYNEUROPATHY, UNSPECIFIED NOTES: WE DISCUSSED SEVERAL ISSUES WITH MRS. DAMICO'S PAIN MANAGEMENT CASE. AT THIS TIME THE PATIENT WILL CONTINUE WIT THE SAME MEDICATION REGIME BEFORE UNTIL SHE HAS THE PERMANENT DCS PLACED. DUE TO THE 70% REDUCTION IN PAIN I WOULD TO REFER THE PATIENT TO [facility]ICE FOR A SURGICAL PLACEMENT. WE DISCUSSED THE RISKS, BENENFITS, AND ALTNERATIVES OF THE PERMANENT DCS AND THE PATIENT WOULD LIKE TO PROCEED AT THIS TIME. INSTRUCTIONS WERE GIVEN, QUESTIONS WERE ANSWERED, PATIENT REPORTS UNDERSTANDING AND AGREES WITH THE PLAN. I, MARKY ONEILL, DOCUMENTED THE ABOVE INFORMATION ACTING A SCRIBE FOR DR. THOMAS. I HAVE REVIEWED THE ABOVE DOCUMENT, WRITTEN BY MARKY LOERA AND I VERIFY THAT IT IS ACCURATE. DIAGNOSTIC IMAGING [facility] FLUORO GUIDANCE (PAIN)[id number] DISPOSITION & COMMUNICATION FOLLOW UP 3 WEEKS ELECTRONICALLY SIGNED BY HI THOMAS MD ON 05/20/2017 AT 09:41 PM EDT DISCLAIMER : THIS IS A VISIT SUMMARY EXTRACTED FROM THE [employer] CHART. IT IS NOT A COPY OF THE [employer] PROGRESS NOTE. [facility]
== END ==
LOC: M PAIN 12:30
PROVIDERS: ATTEND Anesthesiology
DX: G89.29 Other chronic pain (principal); M79.671 Pain in right foot; M79.672 Pain in left foot; G60.9 Hereditary and idiopathic neuropathy, unspecified; B18.2 Chronic viral hepatitis C; F10.99 Alcohol use, unspecified with unspecified alcohol-induced disorder; K70.31 Alcoholic cirrhosis of liver with ascites; E11.9 Type 2 diabetes mellitus without complications; F17.210 Nicotine dependence, cigarettes, uncomplicated; Z22.322 Carrier or suspected carrier of Methicillin resistant Staphylococcus aureus; L23.1 Allergic contact dermatitis due to adhesives; Z79.84 Long term (current) use of oral hypoglycemic drugs; Z79.891 Long term (current) use of opiate analgesic; Z79.899 Other long term (current) drug therapy; Z89.431 Acquired absence of right foot
CPT/HCPCS: 76000; G0463

== ENCOUNTER → 2017-06-06 | Outpatient (CLI) | payer BC | LOC: M PAIN 11:20 | PROVIDERS: ATTEND Nurse Practitioner Family | DX: Z53.8 Procedure and treatment not carried out for other reasons (principal) ==

== ENCOUNTER → 2017-06-18 | Outpatient (CLI) | payer BC ==
[2017-06-18 14:17] LABS: CALCIUM LEVEL 9.4 MG/DL (8.5-10.1); CREATININE FOR GFR 1.17 MG/DL (0.55-1.02); GLOMERULAR FILTRATION RATE 52.6 (>58); POTASSIUM SERUM 4.9 MEQ/L (3.5-5.1)
== END ==
LOC: M SMT 08:30
PROVIDERS: ATTEND Family Medicine
DX: Z01.818 Encounter for other preprocedural examination (principal); E11.9 Type 2 diabetes mellitus without complications; R79.89 Other specified abnormal findings of blood chemistry

== ENCOUNTER 2017-06-20 07:06 | Day surgery (SDC) | payer BC ==
[~2017-06-20] VITALS: Ht 162.6 cm; Wt 72.6 kg
[2017-06-20] MEDS ORDERED: LR 1,000 ML IV ONE (07:15)
[2017-06-20] MEDS ORDERED: ceFAZolin SOD 1 GM in D5W MINI-BAG PLUS 50 ML IV ONE (07:30)
[2017-06-20] MEDS ORDERED: LR 1,000 ML IV SCH ×3 (07:30→09:45)
[2017-06-20] MEDS ORDERED: BUPIVACAINE/EPIN 0.25% 30 ML VIAL As Ordered ONE (07:59)
[2017-06-20] MEDS ORDERED: PROPOFOL 200 MG/20 ML VIAL As Ordered ONE (08:40)
[2017-06-20] MEDS ORDERED: fentaNYL 100 MCG/2 ML INJECTION (J3010) As Ordered ONE (08:40)
[2017-06-20] MEDS ORDERED: MIDAZOLAM INJ 2 MG/2 ML VIAL (J2250) As Ordered ONE (08:40)
[2017-06-20] MEDS ORDERED: LIDOCAINE 2% INJ 100 MG/5 ML SDV (FOR ANES.) As Ordered ONE (08:40)
[2017-06-20] MEDS ORDERED: PHENYLephrine HCL 500 MCG/5 ML (100MCG/ML) SYRINGE (J2370) As Ordered ONE (08:45)
[2017-06-20] MEDS ORDERED: ceFAZolin 1GM INJ (J0690) As Ordered ONE (08:53)
[2017-06-20] MEDS ORDERED: dexameTHASONE 4 MG/ML 1ML VIAL (J1100) As Ordered ONE (09:00)
[2017-06-20] MEDS ORDERED: ONDANSETRON 4MG/2ML VIAL (J2405) As Ordered ONE (09:00)
[2017-06-20] MEDS ORDERED: PERCOCET 5MG/325MG TAB As Ordered ONE (09:24)
[2017-06-20] MEDS ORDERED: NORCO, ANEXSIA 5/325MG TABLET (HYDROcodone/ACETAMINOPHEN) PO PRN (09:30)
[2017-06-20] MEDS ORDERED: MORPHINE 2 MG/ML 1ML SYRINGE IV PRN (09:30)
[2017-06-20] MEDS ORDERED: ONDANSETRON 4MG/2ML VIAL (J2405) IV PRN ×2 (09:30→09:45)
[2017-06-20] MEDS ORDERED: fentaNYL 100 MCG/2 ML INJECTION (J3010) IV PRN (09:45)
[2017-06-20] MEDS ORDERED: PERCOCET 5MG/325MG TAB PO PRN (09:45)
[2017-06-20 10:30] VITALS: BP 112/75
--- NOTE | 2017-07-22 06:05 | RO ---
DATE OF PROCEDURE: 06/20/2017 PREOPERATIVE DIAGNOSIS: Symptomatic umbilical hernia. POSTOPERATIVE DIAGNOSIS: Symptomatic umbilical hernia. PROCEDURE: Umbilical hernia repair. SURGEON: Cristian Ruffin MD ADVICE CLERK: ANESTHESIA: General endotracheal anesthesia ESTIMATED BLOOD LOSS: Minimal. FLUIDS: Crystalloid. DESCRIPTION OF PROCEDURE: The patient was brought to the operating room and was given general anesthesia. After adequate anesthesia and preoperative antibiotics were given, the patient was prepped and draped in the usual sterile fashion. Next, a periumbilical circumlinear incision was made with skin knife around the umbilicus and electrocautery was used cut through dermis, underlying subcutaneous tissue down to the fascia itself. The fascia was cleared of surrounding subcutaneous tissue and the base of the umbilical hernia was followed circumferentially using some blunt dissection as well as electrocautery, and eventually the base of the hernia sac at the umbilicus was transected using electrocautery. Next, the fascial defect was not very large and most of the tissue that was coming through was preperitoneal fat. I did not enter the peritoneum. Thus, I felt at this point that adding an additional mesh repair was not indicated and since the fascia was coming together quite nicely without undue tension the fascia was closed with two [id number] #0 Ethibond sutures in a transverse manner. The dermis was brought together with #3-0 Vicryl. #4-0 Vicryl subcuticular was used to approximate the skin. Steri-Strips and a dry sterile dressing was applied. The patient was awakened, extubated, brought to the recovery room awake, alert and hemodynamically stable. Sponge and needle counts correct times two.
== END 2017-06-20 10:44 | disposition home or self-care (01) ==
LOC: M SDC 07:06
PROVIDERS: ATTEND Surgery
DX: K42.9 Umbilical hernia without obstruction or gangrene (principal); R79.89 Other specified abnormal findings of blood chemistry; E11.9 Type 2 diabetes mellitus without complications; Z79.4 Long term (current) use of insulin; F17.210 Nicotine dependence, cigarettes, uncomplicated; Z79.899 Other long term (current) drug therapy
CPT/HCPCS: 49585; 88302; J0690; J1100; J2250; J2370; J2405; J3010

== ENCOUNTER → 2017-06-26 | Outpatient (CLI) | payer BC ==
--- NOTE | 2017-07-12 23:27 | ECWPNPC ---
PATIENT NAME: ESTER DAMICO : 1970 GENDER: FEMALE VISIT DATE: 06/26/2017 DISCHARGE DATE: 06/26/17 0732 VISIT LOCKED DATE TIME: PHYSICIAN: ILA GOMES RESOURCE: ILA GOMES REASON FOR APPOINTMENT 1. MEDS HISTORY OF PRESENT ILLNESS HISTORY OF PRESENT ILLNESS: PAIN THE PATIENT DESCRIBES THE PAIN... FALL RISK SCREENING: SCREENING :NO FALLS IN THE PAST YEAR TODAY'S VISIT: NOTES: RATES 06/26 TODAY. IS SLEEPING WELL. HAS BEEN VERY ACTIVE. PAIN REMAINS WORST IN FEET BUT THAT SHE HAS NO OPEN AREAS OR ULCERS. STATES THAT AT THIS TIME SHE DOES NOT WISH TO MOVE FORWARD WITH IMPLANTATION OF THE DORSAL COLUMN STIMULATOR. [facility] DOES NOT HAVE A DATE WITH DR LEDBETTER AT THIS TIME. STATES HER MEDS ARE SOMEWHAT EFFECTIVE AND WISHES SHE COULD TAKE MORE. HAD RECENT ABDOMENAL HERNIA REPAIR WITH DR AGARWAL WHO DID PRESCRIBE HER POST OP HYDROCODONE. CURRENT MEDICATIONS TAKING LYRICA 300 MG CAPSULE 1 CAPSULE ORALLY TWICE A DAY TAKING MORPHINE SULFATE 15 MG TABLET 1 TABLET NEEDED ORALLY DAILY FOR PAIN TAKING HYDROCORTISONE 1 % CREAM 1 APPLICATION TO AFFECTED AREA EXTERNALLY TWICE A DAY TAKING SENNA S 8.6-50 MG TABLET 4-5 TABLETS ORALLY TWICE DAILY TAKING MORPHINE SULFATE ER 15 MG TABLET EXTENDED RELEASE 1 TABLET ORALLY FOR PAIN TWICE DAILY FOR PAIN TAKING MIRALAX 1 PACKET 1 PACKET MIXED WITH 8 OUNCES OF FLUID ORALLY TWICE DAILY NEEDED TAKING MULTIVITAMINS VITAMIN CAPSULE 1 TAB(S) ORALLY DAILY TAKING TORSEMIDE 20 MG TABLET 1.5 TABLETS ORALLY ONCE DAILY TAKING METFORMIN HCL 1000 MG TABLET 1 TABLET WITH MEALS ORALLY TWICE A DAY TAKING SPIRONOLACTONE 100 MG TABLET 1 TABLET ORALLY DAILY TAKING AMITRIPTYLINE HCL 25 MG TABLET 1 TABLET ORALLY BEFORE BEDTIME NEEDED TAKING TRAMADOL HCL 50 MG TABLET 1-2 TABLET NEEDED ORALLY EVERY 6 HRS (MDD:6) TAKING PREDNISONE 20 MG TABLET 3 TABLET X 7 DAYS, THEN 2 X 7 DAYS, THEN 1 X 7 DAYS ORALLY ONCE A DAY NOT-TAKING MUPIROCIN CALCIUM 2 % CREAM 1 APPLICATION TO AFFECTED AREA EXTERNALLY BID NOSE 1 WEEK BEFORE SURGERY NOT-TAKING CLINDAMYCIN HCL 300 MG CAPSULE 1 CAPSULE ORALLY THREE TIMES DAILY MDD3 MEDICATION LIST REVIEWED AND RECONCILED WITH THE PATIENT PAST MEDICAL HISTORY HEPATITIS C CHRONIC GENOTYPE 1A VIRAL LOAD 14 MILLION IN 2007 TREATED WITH 3 MONTHS OF PEG-INTRON AND RIBAVIRIN WITH NONCOMPLIANCE 2007, TREATED WITH HARVONI FOR 6 MONTHS CURED ALCOHOLISM CIRRHOSIS WITH ASCITES AND LOWER EXTREMITY EDEMA, 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 MILD VARICES AND GASTROPATHY HISTORY OF IV DRUG USE QUIT 25 YEARS AGO SYPHILIS LIVER DECOMPENSATION CELLULITIS OF LEG WITHOUT FOOT, LEFT RIGHT 2ND, 3RD, 4TH TOES FX' PARTIAL RIGHT FOOT AMPUTATED ALLERGIES BANDAIDES/TAPE: RASH SURGICAL HISTORY TUBAL LIGATION 1991 CARDIAC ABLATION [facility] 07/14/2014 ENDOSCOPY 3 SURGERIES ON FEET- REMOVAL OF PIECE OF BONE 04/01 I&D R FOOT 08/19/2016 RIGHT GREAT TOE JOINT REMOVED 08/2016 PARTIAL RIGHT FOOT AMPUTATION 11/2016 DORSAL COLUMN STIMULATOER, TEMPORARY 04/2017 ABD HERNIA REPAIR - DR AGARWAL 06/20/17 SOCIAL HISTORY GENERAL: TOBACCO USE ARE YOU A:CURRENT SMOKER HOW MANY CIGARETTES A DAY DO YOU SMOKE?11-20 HOW SOON AFTER YOU WAKE UP DO YOU SMOKE YOUR FIRST CIGARETTE?WITHIN 5 MIN HOW OFTEN DO YOU SMOKE CIGARETTES?EVERY DAY PATIENT COUNSELED ON THE DANGERS OF TOBACCO USE AND URGED TO QUIT:06/18/2017 COUNCELLED IMPORTANCE OF QUITTING ARE YOU INTERESTED IN QUITTING?NOT READY TO QUIT COUNSELED THE PATIENT ON SMOKING EFFECTS, EDUCATION [id number]/02/2017 ALCOHOL SCREENING DID YOU HAVE A DRINK CONTAINING ALCOHOL IN THE PAST YEAR?NO POINTS0 INTERPRETATIONNEGATIVE RECREATIONAL DRUG USE DRUG USE?YES CAFFEINE CAFFEINE USE?NO SEXUAL HX HAD SEX IN THE LAST 12 MONTHS (VAGINAL, ORAL, OR ANAL)?YES WITHMEN ONLY HIV / HEP-C SCREENING HIV TEST OFFERED TO PATIENT:YES DATE OFFERED:12/19/2016 TEST ACCEPTED: PREV TESTED HEP-C TEST OFFERED TO PATIENT:YES DATE OFFERED:12/19/2016 TEST ACCEPTED: PREV TESTED OCCUPATION: UNEMPLOYED. DIET: REGULAR. EXERCISE: NO REGULAR EXERCISE. MARITAL STATUS: . OTHERS AT HOME: SPOUSE, CHILD. PETS: NONE. JUDAISM NO ADVENT BELIEFS THAT WOULD IMPACT HEALTH CARE. LANGUAGE LUX[place]BOURGISH. EDUCATION LEVEL OF EDUCATION:HIGH SCHOOL LEARNING BARRIERS / SPECIAL NEEDS CHANGE FROM LAST VISIT?NO BARRIERS TO LEARNING?NO HEARING IMPAIRED?NO VISION IMPAIRED?NO COGNITIVELY IMPAIRED?NO READINESS TO LEARN?YES LEARNING PREFERENCES?NO LEARNING CAPABILITIES PRESENT?YES EMOTIONAL BARRIERS?NO SPECIAL DEVICES?NO DISPENSING AUDIOLOGIST NEEDED?NO NEW PATIENT PAIN DIARY TODAY'S VISIT NOTES, FROM 0-10, WHAT LEVEL IS YOUR PAIN TODAY? 0. PAIN CLINIC PFS, CLERGY, PUBLIC HEALTH REFERRALS PFS REFERRAL NEEDED?NO CLERGY REFERRAL NEEDED?NO PUBLIC HEALTH REFERRAL NEEDED?NO WAS THE PROVIDER NOTIFIED OF ANY PERTINENT INFO?YES HAS THE PATIENT BEEN EDUCATED REGARDING HIS/HER PLAN OF CARE?YES HAS THE PATIENT BEEN EDUCATED REGARDING PAIN, THE RISK FOR PAIN, THE IMPORTANCE OF EFFECTIVE PAIN MANAGEMENT, AND THE PAIN ASSESSMENT PROCESS?YES ADVANCE DIRECTIVES HEALTH CARE PROXY?YES NAME OF HCP DENNY DAMICO CONTACT # FOR HCP [phone] DO YOU HAVE A COPY WITH YOU?NO DO YOU HAVE A DNR?NO WOULD YOU LIKE MORE INFORMATION?NO LIVING WILL?NO WOULD YOU LIKE MORE INFORMATION?NO POWER OF SECURITY SALES MANAGER?NO WOULD YOU LIKE MORE INFORMATION?NO HOSPITALIZATION/MAJOR DIAGNOSTIC PROCEDURE ADMITTED DUE TO INFECTION 03/2016 ADMITTED FOR INFECTION 11/2016 REVIEW OF SYSTEMS REVIEWED BY: PROVIDER: ILA EL . CONSTITUTIONAL: ANY CHANGE IN YOUR MEDICAL CONDITION? NO . CHILLS NO . FEVER NO . INFECTION: DO YOU HAVE NEW INFECTIONS? NO . DO YOU HAVE HISTORY OF MRSA? NO . MUSCULOSKELETAL: ANY NEW PATTERNS OF PAIN OR NUMBNESS? NO . GASTROENTEROLOGY: ANY NEW CHANGE IN BOWEL CONTROL? NO . GENITOURINARY: ANY NEW CHANGE IN BLADDER CONTROL? NO . IS THERE A CHANCE YOU COULD BE ? NO . HEMATOLOGY/LYMPH: DO YOU TAKE ANY BLOOD THINNERS? (FOR EXAMPLE- COUMADIN, PLAVIX, AGGRENOX, PLATEL, PRADAXA, OR XARELTO) NO . WHEN WAS YOUR LAST DOSE? DATE: TIME: . NEUROLOGY: HAVE YOU FALLEN IN THE PAST 6 MONTHS? NO . ANY NEW EXTREMITY NUMBNESS OR WEAKNESS? NO . CARDIOLOGY: DO YOU HAVE A PACEMAKER OR DEFIBRILLATOR? NO . RESPIRATORY: HAVE YOU BEEN SICK IN THE PAST WEEK? NO . FEVER NO . FLU LIKE SYMPTOMS? NO . COUGH NO . INTEGUMENTARY: DO YOU HAVE ANY RASHES OR OPEN SORES? NO . ALLERGIC/IMMUNO: ARE YOU ALLERGIC TO SHELLFISH OR IV DYE? NO . ANY NEW ALLERGIES? NO . PSYCHIATRIC: DO YOU HAVE THOUGHTS OF HURTING YOURSELF OR SOMEONE ELSE? NO . ARE YOU ABUSED, NEGLECTED, OR IN AN UNSAFE ENVIRONMENT? NO . ENDOCRINOLOGY: ARE YOU DIABETIC? YES DOES NOT CHECK BLOOD SUGARS DAILY . OTHER: DO YOU NEED ANY PRESCRIPTIONS? YES . IF YES, PLEASE LIST: MORPHINE LONG ACTING . ANY NEW PROBLEMS WITH YOUR MEDICATIONS? NO . WHEN DID YOU LAST EAT? ____ . WHEN DID YOU LAST DRINK? ____ . WHAT DID YOU LAST DRINK? ____ . NAME OF PERSON DRIVING YOU HOME? ____ . DO YOU HAVE ANY OTHER QUESTIONS OR CONCERNS NO . VITAL SIGNS WT 157.8 LBS, HT 64.5 IN, BMI 26.67 INDEX, BP 134/86 MM HG, HR 75 /MIN, RR 18 /MIN, TEMP 97.5 F, OXYGEN SAT % 100%, NA INITIALS AW 0856, REVIEWED BY: KYLEIGH. EXAMINATION GENERAL EXAMINATION: LUNGS:CLEAR TO AUSCULTATION BILATERALLY. HEART:HEART RATE REGULAR. MUSCULOSKELETAL:GAIT IS SEPPING IN NATURE. EXTREMITIES:NO LOWER EXTREMITY EDEMA. NO ERRYTHEMA OVER THE PLANTAR ASPECT OR ALONG AMPUTATION AREAS ACROSS THE DORSUM OF THE FOOT. STOCKING/GLOVE SENSORY CHANGE TO MID CALF BILATERALLY. SOME DIFIFULTY WITH BALANCE.. ASSESSMENTS BILATERAL FOOT PAIN - M79.671 (PRIMARY) TYPE 2 DIABETES MELLITUS WITH DIABETIC POLYNEUROPATHY - E11.42 CHRONICALLY ON OPIATE THERAPY - Z79.899 TREATMENT BILATERAL FOOT PAIN REFILL MORPHINE SULFATE ER TABLET EXTENDED RELEASE, 15 MG, 1 TABLET, ORALLY FOR PAIN, TWICE DAILY FOR PAIN, 30 DAY(S), 60, REFILLS 0 NOTES: CONTINUE CURRRENT MEDS BRING ALL PAIN MEDS TO NEXT VISIT, ISTOP REGISTRY REVIEWED AND DEMNOSTRATES COMPLLIANCE. RECENT URINE TOXICOLOGY REVIEWED. NO UNAUTHORIZED MEDICATIONS. NO ILLICIT SUBSTANCES AND PRESCRIBED MEDICATIONS WERE PRESENT. PROCEDURE CODES FA211 ESTABILISHED PATIENT [facility] FAC[facility] CHARGE DISPOSITION & COMMUNICATION FOLLOW UP 7 WEEKS (REASON: MED MANAGEMENT) ELECTRONICALLY SIGNED BY JOSUÉ YU ON 07/12/2017 AT 04:40 PM EDT DISCLAIMER : THIS IS A VISIT SUMMARY EXTRACTED FROM THE [employer] CHART. IT IS NOT A COPY OF THE [employer] PROGRESS NOTE. JESUS
== END ==
LOC: M PAIN 08:40
PROVIDERS: ATTEND Nurse Practitioner Family
DX: G89.29 Other chronic pain (principal); M79.671 Pain in right foot; E11.42 Type 2 diabetes mellitus with diabetic polyneuropathy; F10.10 Alcohol abuse, uncomplicated; K70.30 Alcoholic cirrhosis of liver without ascites; I47.1 Supraventricular tachycardia; F17.210 Nicotine dependence, cigarettes, uncomplicated; L23.1 Allergic contact dermatitis due to adhesives; Z79.891 Long term (current) use of opiate analgesic; Z79.84 Long term (current) use of oral hypoglycemic drugs; Z79.899 Other long term (current) drug therapy; Z79.52 Long term (current) use of systemic steroids

== ENCOUNTER → 2017-08-11 | Outpatient (CLI) | payer BC ==
--- NOTE | 2017-09-06 01:24 | ECWPNPC ---
PATIENT NAME: ESTER DAMICO : 1970 GENDER: FEMALE VISIT DATE: 08/11/2017 DISCHARGE DATE: 08/11/17930 VISIT LOCKED DATE TIME: PHYSICIAN: ILA GOMES RESOURCE: ILA GOMES REASON FOR APPOINTMENT 1. MEDS HISTORY OF PRESENT ILLNESS HISTORY OF PRESENT ILLNESS: PAIN THE PATIENT DESCRIBES THE PAIN... FALL RISK SCREENING: SCREENING :NO FALLS IN THE PAST YEAR TODAY'S VISIT: NOTES: RATES PAIN 8/10. STATES MEDS ARE HELPFULAT MANAGING THE PAIN. NOTES PAIN IS CENTERD IN BOTH FEET AND DESCRIBES THE SENSATION "SQUISHY". . CURRENT MEDICATIONS TAKING MORPHINE SULFATE 15 MG TABLET 1 TABLET NEEDED ORALLY DAILY FOR PAIN TAKING HYDROCORTISONE 1 % CREAM 1 APPLICATION TO AFFECTED AREA EXTERNALLY TWICE A DAY TAKING SENNA S 8.6-50 MG TABLET 4-5 TABLETS ORALLY TWICE DAILY TAKING MIRALAX 1 PACKET 1 PACKET MIXED WITH 8 OUNCES OF FLUID ORALLY TWICE DAILY NEEDED TAKING MULTIVITAMINS VITAMIN CAPSULE 1 TAB(S) ORALLY DAILY TAKING MORPHINE SULFATE ER 15 MG TABLET EXTENDED RELEASE 1 TABLET ORALLY FOR PAIN TWICE DAILY FOR PAIN TAKING LYRICA 300 MG CAPSULE 1 CAPSULE ORALLY TWICE A DAY TAKING TORSEMIDE 20 MG TABLET 1.5 TABLETS ORALLY ONCE DAILY TAKING TRAMADOL HCL 50 MG TABLET 1-2 TABLET NEEDED ORALLY EVERY 6 HRS (MDD:6) NOT-TAKING SPIRONOLACTONE 100 MG TABLET 1 TABLET ORALLY DAILY NOT-TAKING AMITRIPTYLINE HCL 25 MG TABLET 1 TABLET ORALLY BEFORE BEDTIME NEEDED NOT-TAKING MUPIROCIN CALCIUM 2 % CREAM 1 APPLICATION TO AFFECTED AREA EXTERNALLY BID NOSE 1 WEEK BEFORE SURGERY DISCONTINUED METFORMIN HCL 1000 MG TABLET 1 TABLET WITH MEALS ORALLY TWICE A DAY DISCONTINUED PREDNISONE 20 MG TABLET 3 TABLET X 7 DAYS, THEN 2 X 7 DAYS, THEN 1 X 7 DAYS ORALLY ONCE A DAY DISCONTINUED CLINDAMYCIN HCL 300 MG CAPSULE 1 CAPSULE ORALLY THREE TIMES DAILY MDD3 MEDICATION LIST REVIEWED AND RECONCILED WITH THE PATIENT PAST MEDICAL HISTORY HEPATITIS C CHRONIC GENOTYPE 1A VIRAL LOAD 14 MILLION IN 2007 TREATED WITH 3 MONTHS OF PEG-INTRON AND RIBAVIRIN WITH NONCOMPLIANCE 2007, TREATED WITH HARVONI FOR 6 MONTHS CURED ALCOHOLISM CIRRHOSIS WITH ASCITES AND LOWER EXTREMITY EDEMA, 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 CONSTITUTIONAL: ANY CHANGE IN YOUR MEDICAL CONDITION? NO . CHILLS NO . FEVER NO . INFECTION: DO YOU HAVE NEW INFECTIONS? NO . DO YOU HAVE HISTORY OF MRSA? NO . MUSCULOSKELETAL: ANY NEW PATTERNS OF PAIN OR NUMBNESS? NO . GASTROENTEROLOGY: ANY NEW CHANGE IN BOWEL CONTROL? NO . GENITOURINARY: ANY NEW CHANGE IN BLADDER CONTROL? NO . IS THERE A CHANCE YOU COULD BE ? NO . HEMATOLOGY/LYMPH: DO YOU TAKE ANY BLOOD THINNERS? (FOR EXAMPLE- COUMADIN, PLAVIX, AGGRENOX, PLATEL, PRADAXA, OR XARELTO) NO . WHEN WAS YOUR LAST DOSE? DATE: TIME: . NEUROLOGY: HAVE YOU FALLEN IN THE PAST 6 MONTHS? NO . ANY NEW EXTREMITY NUMBNESS OR WEAKNESS? NO . CARDIOLOGY: DO YOU HAVE A PACEMAKER OR DEFIBRILLATOR? NO . RESPIRATORY: HAVE YOU BEEN SICK IN THE PAST WEEK? NO . FEVER NO . FLU LIKE SYMPTOMS? NO . COUGH NO . INTEGUMENTARY: DO YOU HAVE ANY RASHES OR OPEN SORES? NO . ALLERGIC/IMMUNO: ARE YOU ALLERGIC TO SHELLFISH OR IV DYE? NO . ANY NEW ALLERGIES? NO . PSYCHIATRIC: DO YOU HAVE THOUGHTS OF HURTING YOURSELF OR SOMEONE ELSE? NO . ARE YOU ABUSED, NEGLECTED, OR IN AN UNSAFE ENVIRONMENT? NO . ENDOCRINOLOGY: ARE YOU DIABETIC? YES . OTHER: DO YOU NEED ANY PRESCRIPTIONS? YES . IF YES, PLEASE LIST: MORPHINE ONCE DAILY . ANY NEW PROBLEMS WITH YOUR MEDICATIONS? NO . WHEN DID YOU LAST EAT? ____ . WHEN DID YOU LAST DRINK? ____ . WHAT DID YOU LAST DRINK? ____ . NAME OF PERSON DRIVING YOU HOME? ____ . DO YOU HAVE ANY OTHER QUESTIONS OR CONCERNS NO . VITAL SIGNS WT 164 LBS, HT 64.5 IN, BMI 27.71 INDEX, BP 111/65 MM HG, HR 77 /MIN, RR 16 /MIN, TEMP 97.3 F, OXYGEN SAT % 99%, NA INITIALS CM 0852. EXAMINATION GENERAL EXAMINATION: LUNGS:CLEAR TO AUSCULTATION BILATERALLY. HEART:HEART RATE REGULAR. MUSCULOSKELETAL:GAIT IS STEPPING IN NATURE. EXTREMITIES:NO LOWER EXTREMITY EDEMA. NO ERRYTHEMA OVER THE PLANTAR ASPECT OR ALONG AMPUTATION AREAS ACROSS THE DORSUM OF THE FOOT. STOCKING/GLOVE SENSORY CHANGE TO MID CALF BILATERALLY. DIFFCULTY WITH BALANCE.. 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 MUST BRING MORPHINE TO EVERY VISIT. CLINICAL NOTES: ISTOP REGISTRY REVIEWED AND DEMNOSTRATES COMPLLIANCE.(#[id number]) DOES NOT BRING IN MEDICATIONS TODAY. RECENT URINE TOXICOLOGY REVIEWED. NO UNAUTHORIZED MEDICATIONS. NO ILLICIT SUBSTANCES AND PRESCRIBED MEDICATIONS WERE PRESENT. PROCEDURE CODES FA211 ESTABILISHED PATIENT [facility] CHARGE DISPOSITION & COMMUNICATION FOLLOW UP 7 WEEKS (REASON: LEG PAIN/NEUROPATHY) ELECTRONICALLY SIGNED BY JOSUÉ YU ON 09/05/2017 AT 09:31 AM EDT DISCLAIMER : THIS IS A VISIT SUMMARY EXTRACTED FROM THE [employer] CHART. IT IS NOT A COPY OF THE [employer] PROGRESS NOTE. JESUS
== END ==
LOC: M PAIN 08:30
PROVIDERS: ATTEND Nurse Practitioner Family
DX: G89.29 Other chronic pain (principal); M79.671 Pain in right foot; E11.9 Type 2 diabetes mellitus without complications; K70.30 Alcoholic cirrhosis of liver without ascites; I47.1 Supraventricular tachycardia; G62.1 Alcoholic polyneuropathy; F17.210 Nicotine dependence, cigarettes, uncomplicated; N18.3 Chronic kidney disease, stage 3 (moderate); L23.1 Allergic contact dermatitis due to adhesives; Z79.891 Long term (current) use of opiate analgesic; Z79.899 Other long term (current) drug therapy; Z87.898 Personal history of other specified conditions

== ENCOUNTER → 2017-09-29 | Outpatient (CLI) | payer BC | LOC: M PAIN 08:45 | PROVIDERS: ATTEND Nurse Practitioner Family | DX: G89.29 Other chronic pain (principal); M79.671 Pain in right foot; E11.42 Type 2 diabetes mellitus with diabetic polyneuropathy; F10.20 Alcohol dependence, uncomplicated; F17.210 Nicotine dependence, cigarettes, uncomplicated; K74.60 Unspecified cirrhosis of liver; Z79.891 Long term (current) use of opiate analgesic; Z79.899 Other long term (current) drug therapy; Z91.048 Other nonmedicinal substance allergy status ==

== ENCOUNTER → 2017-12-16 | Outpatient (CLI) | payer BC | LOC: M PAIN 11:30 | DX: M79.671 Pain in right foot (principal); G62.1 Alcoholic polyneuropathy; F10.10 Alcohol abuse, uncomplicated; K74.60 Unspecified cirrhosis of liver; F17.210 Nicotine dependence, cigarettes, uncomplicated; Z79.891 Long term (current) use of opiate analgesic; Z79.899 Other long term (current) drug therapy; Z91.048 Other nonmedicinal substance allergy status | CPT/HCPCS: G0463 ==

== ENCOUNTER → 2018-01-13 | Outpatient (CLI) | payer BC ==
[2018-01-13 12:28] LABS: PROTHROMBIN TIME 14.4 SECONDS (12.4-14.5)
[2018-01-13 12:46] LABS: ALBUMIN 4.1 GM/DL (3.2-5.2); ALBUMIN/GLOBULIN RATIO 1.11 (1.00-1.93); ALKALINE PHOSPHATASE 103 U/L (45-117); ALT/SGPT 37 U/L (12-78); ANION GAP 9 MEQ/L (8-16); AST/SGOT 28 U/L (7-37); BILIRUBIN,DIRECT 0.1 MG/DL (0.0-0.2); BILIRUBIN,TOTAL 0.4 MG/DL (0.2-1.0); BLOOD UREA NITROGEN 26 MG/DL (7-18); CALCIUM LEVEL 9.1 MG/DL (8.5-10.1); CARBON DIOXIDE LEVEL 26 MEQ/L (21-32); CHLORIDE LEVEL 108 MEQ/L (98-107); GLOMERULAR FILTRATION RATE 56.2 (>58); GLUCOSE, FASTING 96 MG/DL (70-100); SODIUM LEVEL 143 MEQ/L (136-145); TOTAL PROTEIN 7.8 GM/DL (6.4-8.2)
[2018-01-13 12:51] LABS: ALPHA FETOPROTEIN TUMOR QUANT 3.3 NG/ML (<8.1)
[2018-01-13 12:54] LABS: ESTIMATED AVERAGE GLUCOSE 117 MG/DL (60-110); HEMOGLOBIN A1c 5.7 %
== END ==
LOC: M WUC 10:15
DX: K70.30 Alcoholic cirrhosis of liver without ascites (principal); E11.42 Type 2 diabetes mellitus with diabetic polyneuropathy
CPT/HCPCS: 80076

== ENCOUNTER → 2018-01-28 | Outpatient (CLI) | payer BC | LOC: M RAD 08:58 | DX: K70.30 Alcoholic cirrhosis of liver without ascites (principal) | CPT/HCPCS: 76705 ==

== ENCOUNTER → 2018-02-03 | Outpatient (CLI) | payer BC | LOC: M PAIN 08:30 | DX: M79.671 Pain in right foot (principal); G62.1 Alcoholic polyneuropathy; E11.9 Type 2 diabetes mellitus without complications; F17.210 Nicotine dependence, cigarettes, uncomplicated; Z79.891 Long term (current) use of opiate analgesic; Z79.899 Other long term (current) drug therapy; Z91.09 Other allergy status, other than to drugs and biological substances; Z86.59 Personal history of other mental and behavioral disorders | CPT/HCPCS: G0463 ==

== ENCOUNTER → 2018-03-17 | Outpatient (CLI) | payer BC | LOC: M PAIN 08:30 | DX: G89.29 Other chronic pain (principal); M79.671 Pain in right foot; G62.1 Alcoholic polyneuropathy; B18.2 Chronic viral hepatitis C; I85.10 Secondary esophageal varices without bleeding; F10.20 Alcohol dependence, uncomplicated; F17.210 Nicotine dependence, cigarettes, uncomplicated; K70.30 Alcoholic cirrhosis of liver without ascites; Z79.891 Long term (current) use of opiate analgesic; Z79.899 Other long term (current) drug therapy; Z91.048 Other nonmedicinal substance allergy status | CPT/HCPCS: G0463 ==

== ENCOUNTER → 2018-07-17 | Outpatient (CLI) | payer OTHER, MEDICARE | LOC: M PAIN 09:15 | DX: M79.671 Pain in right foot (principal); G62.1 Alcoholic polyneuropathy; K70.31 Alcoholic cirrhosis of liver with ascites; F17.210 Nicotine dependence, cigarettes, uncomplicated; Z79.891 Long term (current) use of opiate analgesic; Z79.899 Other long term (current) drug therapy; Z91.09 Other allergy status, other than to drugs and biological substances; Z86.19 Personal history of other infectious and parasitic diseases; Z86.59 Personal history of other mental and behavioral disorders | CPT/HCPCS: G0463 ==

== ENCOUNTER 2018-09-01 07:10 | Emergency (ER) | payer OTHER, MEDICARE ==
[2018-09-01] MEDS: MORPHINE 15 MG SA TAB PO (08:00)
[2018-09-01] MEDS: MORPHINE 30 MG TAB **MSIR PO (08:32)
== END 2018-09-01 08:54 | disposition home or self-care (01) ==
LOC: M ED 07:10
DX: Z76.0 Encounter for issue of repeat prescription (principal); G89.29 Other chronic pain; M25.572 Pain in left ankle and joints of left foot; M25.571 Pain in right ankle and joints of right foot; G57.93 Unspecified mononeuropathy of bilateral lower limbs; Z89.431 Acquired absence of right foot; K74.60 Unspecified cirrhosis of liver; Z79.899 Other long term (current) drug therapy
CPT/HCPCS: 99283

== ENCOUNTER → 2018-09-02 | Outpatient (CLI) | payer OTHER, MEDICARE | LOC: M PAIN 11:15 | DX: M79.671 Pain in right foot (principal); G62.1 Alcoholic polyneuropathy; Z79.891 Long term (current) use of opiate analgesic; F17.210 Nicotine dependence, cigarettes, uncomplicated; F10.20 Alcohol dependence, uncomplicated; K74.60 Unspecified cirrhosis of liver; R18.8 Other ascites; Z91.048 Other nonmedicinal substance allergy status; Z79.899 Other long term (current) drug therapy | CPT/HCPCS: G0463 ==

== ENCOUNTER → 2018-11-03 | Outpatient (REF) | payer OTHER, MEDICARE ==
[~2018-11-03] MED LIST changes: +LASI40TA9 PO; +MORP15TA2 PO; +SPIR-10 PO; +SPIR100T3 PO; -SPIR25TA2 PO; -SPIR50TA2 PO; +SPIR50TA4 PO; -ZOFR20TA PO; +ZOFR4TAB16 PO
[2018-11-11 14:10] LABS: CANNABINOID, URINE Negative (Cutoff=20); CREATININE, URINE 21.2 mg/dL (20.0-300.0)
== END ==
LOC: M SFHCCLAY 09:08
PROVIDERS: ATTEND Family Medicine
DX: G62.9 Polyneuropathy, unspecified (principal); Z79.891 Long term (current) use of opiate analgesic
CPT/HCPCS: 80307; G0463

== ENCOUNTER → 2018-12-08 | Outpatient (REF) | payer MEDICARE, OTHER ==
[2018-12-08 16:55] LABS: CALCIUM LEVEL 9.4 MG/DL (8.5-10.1); CHOLESTEROL RISK RATIO 5.062 (<5); CREATININE FOR GFR 1.18 MG/DL (0.55-1.30); GLOMERULAR FILTRATION RATE 51.6 (>51); POTASSIUM SERUM 5.2 MEQ/L (3.5-5.1)
[2018-12-08 17:22] LABS: CREATININE, URINE < 13.0 MG/DL; MALB URINE SIEMENS 6.2 MG/L
[2018-12-08 17:41] LABS: HEMOGLOBIN A1c 5.7 %
== END ==
LOC: M SFHCCLAY 09:44
PROVIDERS: ATTEND Family Medicine
DX: E11.42 Type 2 diabetes mellitus with diabetic polyneuropathy (principal)
CPT/HCPCS: 80048; 80061; 82043; 83036; G0463

== ENCOUNTER → 2019-03-10 | Outpatient (REF) | payer MEDICARE ==
[~2019-03-10] MED LIST changes: -/PANT40TA PO; +MUPI1OIN2 TOP; -MUPI2OI TOP; +PROT1TAB2 PO; +SENN1TAB41 PO; -SENN8.6T7 PO
[2019-03-10 11:15] LABS: BASO # 0.1 10^3/uL (0.0-0.2); BASO % 0.7 % (0.0-1.0); EOS # 0.5 10^3/uL (0.0-0.50); EOS % 6.2 % (0.0-3.0); HEMATOCRIT 42.5 % (36.0-47.0); HEMOGLOBIN 14.3 g/dl (12.0-15.5); LYMPH # 1.9 10^3/uL (1.5-4.5); LYMPH % 23.7 % (24.0-44.0); MEAN CORPUSCULAR HEMOGLOBIN 28.5 pg (27.0-33.0); MEAN CORPUSCULAR HGB CONC 33.6 g/dl (32.0-36.5); MEAN CORPUSCULAR VOLUME 84.8 fl (80.0-96.0); MONO # 0.6 10^3/uL (0.0-0.8); MONO % 7.2 % (0.0-5.0); NEUTROPHILS # 5.1 10^3/uL (1.8-7.7); PLATELET COUNT, AUTOMATED 177 10^3/uL (150-450); RED BLOOD COUNT 5.01 10^6/uL (4.00-5.40); WHITE BLOOD COUNT 8.2 10^3/uL (4.0-10.0)
== END ==
LOC: M SFHCCLAY 09:13
PROVIDERS: ATTEND Family Medicine
DX: R53.83 Other fatigue (principal)
CPT/HCPCS: 82140; 84443; 85025; G0463

== ENCOUNTER → 2019-03-26 | Outpatient (CLI) | payer MEDICARE ==
--- NOTE | 2019-03-26 17:06 | REP ---
RIGHT FOOT SERIES: Four views of the right foot are performed. Patient has had a prior amputation at the level of the proximal metatarsals. The visualized osseous structures are intact with no fracture or dislocation. No osseous destruction of significant periosteal reaction is seen. Tiny calcification is seen in the distal Achilles tendon. Accessory ossicle is seen along the medial navicular bone. 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 No acute findings. Electronically Signed by Mika aDvis MD 03/31/2019 11:47 A
== END ==
LOC: M LRY 14:21
PROVIDERS: ATTEND Family Medicine
DX: M79.671 Pain in right foot (principal); Z89.429 Acquired absence of other toe(s), unspecified side

== ENCOUNTER → 2019-05-05 | Outpatient (CLI) | payer MEDICARE ==
--- NOTE | 2019-05-05 10:16 | REP ---
Right upper quadrant sonography: History: Alcoholic cirrhosis. Without ascites. Findings: Right upper quadrant sonographic scanning demonstrates a normal sized slightly thick-walled gallbladder containing multiple large shadowing calculi. Gallbladder wall measures up to 0.4 cm in thickness. Common bile duct is normal measuring 0.4 cm. The liver texture is somewhat coarse. A prominent caudate lobe is seen. No hepatic mass lesion is observed. Limited views of the pancreas show no abnormality. There is no evidence of ascites or right renal abnormality. The right kidney measures 9.5 x 6.8 x 6.6 cm. Impression: Cholelithiasis. Somewhat coarse liver texture. No focal liver mass lesion. Electronically Signed by Adama Car MD 05/05/2019 11:13 A
== END ==
LOC: M RAD 07:32
PROVIDERS: ATTEND Family Medicine
DX: K80.20 Calculus of gallbladder without cholecystitis without obstruction (principal)

== ENCOUNTER → 2019-11-20 | Outpatient (REF) | payer MEDICARE ==
[~2019-11-20] MED LIST changes: -MORP-38 PO; +MORP-69 PO; -SULF1TAB72 PO; +SULF400T14 PO
== END ==
LOC: M SFHCLERA 10:14
PROVIDERS: ATTEND Nurse Practitioner Family
DX: J02.9 Acute pharyngitis, unspecified (principal)

== ENCOUNTER → 2020-01-26 | Outpatient (REF) | payer MEDICARE ==
[2020-01-26 11:58] LABS: APPEARANCE, URINE CLEAR (CLEAR); BACTERIA, URINE AUTO NEGATIVE (NEGATIVE); BILIRUBIN, URINE AUTO NEGATIVE (NEGATIVE); BLOOD, URINE BLOOD 1+ (NEGATIVE); COLOR, URINE STRAW (YELLOW); GLUCOSE, URINE (UA) AUTO NEGATIVE (NEGATIVE); KETONE, URINE AUTO NEGATIVE (NEGATIVE); LEUKOCYTE ESTERASE, URINE AUTO NEGATIVE (NEGATIVE); NITRITE, URINE AUTO NEGATIVE (NEGATIVE); PROTEIN, URINE AUTO NEGATIVE (NEGATIVE); RBC, URINE AUTO 1 /HPF (0-3); SPECIFIC GRAVITY URINE AUTO 1.004 (1.002-1.035); SQUAMOUS EPITHELIAL CELL UR AU 0 /HPF (0-6); UROBILINOGEN, URINE AUTO 0.2 mg/dL (0.0-2.0); WBC, URINE AUTO 5 /HPF (0-3)
[2020-01-26 12:40] LABS: BLOOD UREA NITROGEN 24 MG/DL (7-18); CALCIUM LEVEL 9.1 MG/DL (8.5-10.1); CARBON DIOXIDE LEVEL 28 MEQ/L (21-32); CHLORIDE LEVEL 107 MEQ/L (98-107); CREATININE FOR GFR 0.98 MG/DL (0.55-1.30); GLOMERULAR FILTRATION RATE > 60.0 (>51); GLUCOSE, FASTING 119 MG/DL (70-100); POTASSIUM SERUM 4.5 MEQ/L (3.5-5.1); SODIUM LEVEL 141 MEQ/L (136-145)
== END ==
LOC: M SFHCCLAY 09:16
PROVIDERS: ATTEND Family Medicine
DX: K70.30 Alcoholic cirrhosis of liver without ascites (principal); N18.3 Chronic kidney disease, stage 3 (moderate); R30.0 Dysuria; R39.198 Other difficulties with micturition
CPT/HCPCS: 80048; 81001; 81002; 87088; 87186; G0463

== ENCOUNTER → 2020-02-28 | Outpatient (CLI) | payer MEDICARE ==
--- NOTE | 2020-02-28 08:14 | REP ---
Clinical: History of alcoholic cirrhosis. Technique: Real time santiago scale ultrasound examination using curved array transducer. Comparison: 05/05/2019. Findings: Liver demonstrates nodular contour and heterogeneous parenchymal echotexture without focal hepatic lesion identified. Color Doppler evaluation demonstrates a patent umbilical vein demonstrating hepatofugal flow with peak velocity at 26 cm/sec. No ascites. The gallbladder demonstrates multiple mobile gallstones without wall thickening or pericholecystic fluid. No biliary ductal dilatation is appreciated and the common bile duct measures 6 mm diameter. Pancreas is poorly evaluated due to technical factors and interposed bowel gas. The right kidney is normal in reniform shape without hydronephrosis and measures 10.3 x 6.0 x 5.4 cm. Impression: 1. Coarsened hepatic echotexture with nodular contour and newly identified patent umbilical vein consistent with the given history of cirrhosis. No focal hepatic lesion identified. 2. Cholelithiasis. Electronically Signed by Damien Almonte MD 02/28/2020 08:05 A
== END ==
LOC: M RAD 07:25
PROVIDERS: ATTEND Family Medicine
DX: K70.30 Alcoholic cirrhosis of liver without ascites (principal); K80.20 Calculus of gallbladder without cholecystitis without obstruction

== ENCOUNTER → 2020-03-24 | Outpatient (CLI) | payer MEDICARE ==
--- NOTE | 2020-03-24 09:15 | REPMRS ---
Patient History The patient states she has not had a clinical breast exam in over a year. Patient is postmenopausal. No known family history of cancer. Digital Woman Screen Mammo: March 24, 2020 - Exam #: [id number] Bilateral CC and MLO view(s) were taken. Technologist: Delisa Conde, Technologist Prior study comparison: February 02, 2014, digital woman screen mammo performed at [facility]. FINDINGS: There are scattered fibroglandular densities. The Volpara volumetric breast density category is:B. There are multiple scattered groupings of stable macro and microcalcification bilaterally. Unchanged. There has been no change in the appearance of the mammogram from the prior studies. There is a mild amount of scattered fibroglandular density which is fairly symmetric. There is no interval development of dominant mass, architectural distortion, or grouped microcalcification suggestive of malignancy. 3-D tomosynthesis shows no additional findings. Assessment: BI-RADS/ACR category 2 mammogram. Benign Findings. Recommendation Routine screening mammogram of both breasts in 1 year (for women over age 40). This patient's Lifetime Breast Cancer RIsk is estimated at 7.1 %. This mammogram was interpreted with the aid of an FDA-approved computer-aided dectection system. Electronically Signed By: Scooby Car MD 03/24/20 0915
== END ==
LOC: M WHC 08:29
PROVIDERS: ATTEND Family Medicine
DX: Z12.31 Encounter for screening mammogram for malignant neoplasm of breast (principal)

== ENCOUNTER → 2020-05-08 | Outpatient (CLI) | payer MEDICARE | LOC: M OUTALCOH 08:41 | PROVIDERS: ATTEND Psychiatry & Neurology Addiction Medicine | DX: Z13.39 Encounter for screening examination for other mental health and behavioral disorders (principal); F10.20 Alcohol dependence, uncomplicated ==

== ENCOUNTER → 2020-05-24 | Outpatient (REF) | payer MEDICARE ==
[2020-05-24 17:14] LABS: CALCIUM LEVEL 9.3 MG/DL (8.5-10.1); CREATININE FOR GFR 1.13 MG/DL (0.55-1.30); POTASSIUM SERUM 4.7 MEQ/L (3.5-5.1)
[2020-05-24 17:31] LABS: HEMOGLOBIN A1c 6.6 %
== END ==
LOC: M SFHCCLAY 11:30
PROVIDERS: ATTEND Family Medicine
DX: K70.30 Alcoholic cirrhosis of liver without ascites (principal); E11.42 Type 2 diabetes mellitus with diabetic polyneuropathy
CPT/HCPCS: 80048; 82105; 83036; G0463

== ENCOUNTER 2020-06-15 10:00 | Outpatient (RCR) | payer MEDICARE | END 2020-06-16 | LOC: M OUTALCOH 10:00 | PROVIDERS: ATTEND Psychiatry & Neurology Addiction Medicine | DX: F10.20 Alcohol dependence, uncomplicated (principal); F17.200 Nicotine dependence, unspecified, uncomplicated ==

== ENCOUNTER → 2020-07-17 | Outpatient (RCR) | payer MEDICARE | LOC: M OUTALCOH 06-20 10:00 | PROVIDERS: ATTEND Psychiatry & Neurology Addiction Medicine | DX: F10.20 Alcohol dependence, uncomplicated (principal); F17.200 Nicotine dependence, unspecified, uncomplicated ==

== ENCOUNTER 2020-08-14 13:48 | Outpatient (RCR) | payer MEDICARE | END 2020-08-16 | LOC: M OUTALCOH 13:48 | PROVIDERS: ATTEND Psychiatry & Neurology Addiction Medicine | DX: F10.20 Alcohol dependence, uncomplicated (principal); F17.200 Nicotine dependence, unspecified, uncomplicated | CPT/HCPCS: 90834; 90853; H0050 ==

== ENCOUNTER 2020-09-14 08:00 | Outpatient (RCR) | payer MEDICARE | END 2020-09-16 | LOC: M OUTALCOH 08:00 | PROVIDERS: ATTEND Psychiatry & Neurology Addiction Medicine | DX: F10.20 Alcohol dependence, uncomplicated (principal); F17.200 Nicotine dependence, unspecified, uncomplicated ==

== ENCOUNTER → 2020-09-19 | Outpatient (REF) | payer MEDICARE ==
[2020-09-22 16:08] LABS: CODEINE, URINE Negative (Cutoff=100); CREATININE, URINE 27.4 mg/dL (20.0-300.0); HYDROCODONE, URINE Negative (Cutoff=100); HYDROMORPHONE, URINE Negative (Cutoff=100); MORPHINE CONFIRM, URINE 5642 ng/mL (Cutoff=100); MORPHINE, URINE Positive (.); OPIATES, URINE Positive ng/mL (Cutoff=300)
== END ==
LOC: M SFHCCLAY 11:43
PROVIDERS: ATTEND Family Medicine
DX: Z79.891 Long term (current) use of opiate analgesic (principal); Z23 Encounter for immunization
CPT/HCPCS: 80307; 90682; G0008; G0463

== ENCOUNTER 2020-10-11 13:27 | Outpatient (RCR) | payer MEDICARE | END 2020-10-16 | LOC: M OUTALCOH 13:27 | PROVIDERS: ATTEND Psychiatry & Neurology Addiction Medicine | DX: F10.20 Alcohol dependence, uncomplicated (principal); F17.200 Nicotine dependence, unspecified, uncomplicated ==

== ENCOUNTER → 2020-11-16 | Outpatient (RCR) | payer MEDICARE | LOC: M OUTALCOH 10-18 16:00 | PROVIDERS: ATTEND Psychiatry & Neurology Addiction Medicine | DX: F10.20 Alcohol dependence, uncomplicated (principal); F17.200 Nicotine dependence, unspecified, uncomplicated ==

== ENCOUNTER 2020-12-14 09:00 | Outpatient (RCR) | payer MEDICARE | END 2020-12-17 | LOC: M OUTALCOH 09:00 | PROVIDERS: ATTEND Psychiatry & Neurology Psychiatry | DX: F10.20 Alcohol dependence, uncomplicated (principal); F17.200 Nicotine dependence, unspecified, uncomplicated ==

== ENCOUNTER 2021-01-12 11:10 | Outpatient (RCR) | payer MEDICARE | END 2021-01-14 | LOC: M OUTALCOH 11:10 | PROVIDERS: ATTEND Psychiatry & Neurology Addiction Medicine | DX: F10.20 Alcohol dependence, uncomplicated (principal); F17.200 Nicotine dependence, unspecified, uncomplicated ==

== ENCOUNTER 2021-02-09 13:14 | Outpatient (RCR) | payer MEDICARE ==
[~2021-02-09 13:14] MED LIST changes: -AMIT10TA PO; +AMIT10TA7 PO
== END 2021-02-14 ==
LOC: M OUTALCOH 13:14
PROVIDERS: ATTEND Psychiatry & Neurology Psychiatry
DX: F10.20 Alcohol dependence, uncomplicated (principal); F17.200 Nicotine dependence, unspecified, uncomplicated

== ENCOUNTER → 2021-03-16 | Outpatient (RCR) | payer MEDICARE | LOC: M OUTALCOH 02-15 13:00 | PROVIDERS: ATTEND Psychiatry & Neurology Psychiatry | DX: F10.20 Alcohol dependence, uncomplicated (principal); F17.200 Nicotine dependence, unspecified, uncomplicated ==

== ENCOUNTER 2021-04-13 13:26 | Outpatient (RCR) | payer MEDICARE | END 2021-04-16 | LOC: M OUTALCOH 13:26 | PROVIDERS: ATTEND Psychiatry & Neurology Psychiatry | DX: F10.20 Alcohol dependence, uncomplicated (principal); F17.200 Nicotine dependence, unspecified, uncomplicated ==

== ENCOUNTER 2021-05-14 15:20 | Outpatient (RCR) | payer MEDICARE | END 2021-05-16 | LOC: M OUTALCOH 15:20 | PROVIDERS: ATTEND Psychiatry & Neurology Psychiatry | DX: F10.20 Alcohol dependence, uncomplicated (principal); F17.200 Nicotine dependence, unspecified, uncomplicated ==

== ENCOUNTER 2021-06-11 14:01 | Outpatient (RCR) | payer MEDICARE | END 2021-06-16 | LOC: M OUTALCOH 14:01 | PROVIDERS: ATTEND Psychiatry & Neurology Psychiatry | DX: F10.20 Alcohol dependence, uncomplicated (principal); F17.200 Nicotine dependence, unspecified, uncomplicated ==

== ENCOUNTER 2021-07-12 08:00 | Outpatient (RCR) | payer MEDICARE | END 2021-07-17 | LOC: M OUTALCOH 08:00 | PROVIDERS: ATTEND Psychiatry & Neurology Psychiatry | DX: F10.20 Alcohol dependence, uncomplicated (principal); F17.200 Nicotine dependence, unspecified, uncomplicated ==

== ENCOUNTER 2021-08-15 13:00 | Outpatient (RCR) | payer MEDICARE | END 2021-08-16 | LOC: M OUTALCOH 13:00 | PROVIDERS: ATTEND Psychiatry & Neurology Psychiatry | DX: F10.20 Alcohol dependence, uncomplicated (principal); F17.200 Nicotine dependence, unspecified, uncomplicated ==

== ENCOUNTER 2021-09-11 09:00 | Outpatient (RCR) | payer MEDICARE | END 2021-09-16 | LOC: M OUTALCOH 09:00 | PROVIDERS: ATTEND Psychiatry & Neurology Psychiatry | DX: F10.20 Alcohol dependence, uncomplicated (principal); F17.200 Nicotine dependence, unspecified, uncomplicated ==

== ENCOUNTER → 2021-09-18 | Outpatient (REF) | payer MEDICARE | LOC: M SFHCPLAZ 13:19 | PROVIDERS: ATTEND Physician Assistant | DX: J06.9 Acute upper respiratory infection, unspecified (principal) ==

== ENCOUNTER 2021-10-01 14:00 | Outpatient (RCR) | payer MEDICARE | END 2021-10-16 | LOC: M OUTALCOH 14:00 | PROVIDERS: ATTEND Psychiatry & Neurology Psychiatry | DX: F10.20 Alcohol dependence, uncomplicated (principal); F17.200 Nicotine dependence, unspecified, uncomplicated ==

== ENCOUNTER → 2021-10-23 | Outpatient (REF) | payer MEDICARE ==
[2021-10-24 11:43] LABS: HEMOGLOBIN A1c 8.6 %
[2021-10-24 12:13] LABS: ALBUMIN 3.6 GM/DL (3.2-5.2); BILIRUBIN,TOTAL 0.4 MG/DL (0.2-1.0); CALCIUM LEVEL 9.4 MG/DL (8.5-10.1); CHOLESTEROL RISK RATIO 6.258 (<5); CREATININE FOR GFR 1.16 MG/DL (0.55-1.30); TOTAL PROTEIN 7.1 GM/DL (6.4-8.2)
[2021-10-24 12:20] LABS: MALB URINE SIEMENS 10.7 MG/L; MAU/CREAT RATIO 9.8 MCG/MG (0.0-30.0)
[2021-10-30 12:09] LABS: CODEINE, URINE Negative (Cutoff=100); CREATININE, URINE 109.2 mg/dL (20.0-300.0); HYDROCODONE, URINE Negative (Cutoff=100); HYDROMORPHONE CONFIRM, URINE 201 ng/mL (Cutoff=100); HYDROMORPHONE, URINE Positive (.); MORPHINE CONFIRM, URINE >15000 ng/mL (Cutoff=100); MORPHINE, URINE Positive (.); OPIATES, URINE Positive ng/mL (Cutoff=300)
== END ==
LOC: M SFHCCLAY 15:44
PROVIDERS: ATTEND Family Medicine
DX: K70.30 Alcoholic cirrhosis of liver without ascites (principal); E11.42 Type 2 diabetes mellitus with diabetic polyneuropathy; Z79.891 Long term (current) use of opiate analgesic
CPT/HCPCS: 80053; 80061; 80307; 82043; 82105; 83036; G0463

== ENCOUNTER → 2022-07-29 | Outpatient (REF) | payer MEDICARE ==
[2022-07-29 17:58] LABS: HEMOGLOBIN 13.9 g/dl (12.0-15.5); MEAN CORPUSCULAR HEMOGLOBIN 28.7 pg (27.0-33.0); MEAN CORPUSCULAR HGB CONC 33.1 g/dl (32.0-36.5); MEAN CORPUSCULAR VOLUME 86.6 fl (80.0-96.0); PLATELET COUNT, AUTOMATED 212 10^3/uL (150-450); RED BLOOD COUNT 4.85 10^6/uL (4.00-5.40); WHITE BLOOD COUNT 8.8 10^3/uL (4.0-10.0)
[2022-07-29 19:15] LABS: HEMOGLOBIN A1c 6.4 %
[2022-07-29 19:18] LABS: ALBUMIN 3.8 GM/DL (3.2-5.2); ALT/SGPT 30 U/L (12-78); BILIRUBIN,TOTAL 0.4 MG/DL (0.2-1.0); BLOOD UREA NITROGEN 21 MG/DL (7-18); CARBON DIOXIDE LEVEL 30 MEQ/L (21-32); CHLORIDE LEVEL 109 MEQ/L (98-107); CHOLESTEROL LEVEL 182 MG/DL (<200); CHOLESTEROL RISK RATIO 4.918 (<5); FREE T4 0.92 NG/DL (0.76-1.46); GLOMERULAR FILTRATION RATE > 60.0 (>51); GLUCOSE, FASTING 105 MG/DL (70-100); HDL CHOLESTEROL 37 MG/DL (>40); LDL CHOLESTEROL 122 MG/DL (<100); NON-HDL-C 145 MG/DL; POTASSIUM SERUM 4.6 MEQ/L (3.5-5.1); SODIUM LEVEL 141 MEQ/L (136-145); TOTAL PROTEIN 7.6 GM/DL (6.4-8.2); TRIGLYCERIDES LEVEL 117 MG/DL (<150)
== END ==
LOC: M SFHCCLAY 11:31
PROVIDERS: ATTEND Nurse Practitioner Family
DX: K70.30 Alcoholic cirrhosis of liver without ascites (principal); E11.42 Type 2 diabetes mellitus with diabetic polyneuropathy; F32.1 Major depressive disorder, single episode, moderate; M25.561 Pain in right knee

== ENCOUNTER → 2022-07-29 | Outpatient (CLI) | payer MEDICARE | LOC: M CLY 11:49 | PROVIDERS: ATTEND Nurse Practitioner Family | DX: M25.561 Pain in right knee (principal) ==

== ENCOUNTER → 2022-11-29 | Outpatient (CLI) | payer MEDICARE | LOC: M SOG 08:39 | PROVIDERS: ATTEND Orthopaedic Surgery Adult Reconstructive Orthopaedic Surgery | DX: M25.561 Pain in right knee (principal) ==

== ENCOUNTER → 2022-12-05 | Outpatient (REF) | payer MEDICARE ==
[2022-12-05 17:36] LABS: BLOOD UREA NITROGEN 28 MG/DL (9-23); CALCIUM LEVEL 9.2 MG/DL (8.5-10.1); CARBON DIOXIDE LEVEL 29 MMOL/L (20-31); CHLORIDE LEVEL 105 MMOL/L (98-107); CREATININE FOR GFR 0.99 MG/DL (0.55-1.30); FREE T4 0.94 NG/DL (0.89-1.76); GLOMERULAR FILTRATION RATE > 60.0 (>51); GLUCOSE, FASTING 106 MG/DL (60-100); POTASSIUM SERUM 4.6 MMOL/L (3.5-5.1); SODIUM LEVEL 141 MMOL/L (136-145)
[2022-12-05 17:37] LABS: THYROID STIMULATING HORMONE 1.416 uIU/ML (0.55-4.78)
== END ==
LOC: M SFHCCLAY 11:41
PROVIDERS: ATTEND Family Medicine
DX: E11.42 Type 2 diabetes mellitus with diabetic polyneuropathy (principal); K59.03 Drug induced constipation; T40.2X5A Adverse effect of other opioids, initial encounter

== ENCOUNTER → 2023-02-10 | Outpatient (CLI) | payer MEDICARE | LOC: M CLY 10:27 | PROVIDERS: ATTEND Nurse Practitioner Family | DX: M25.552 Pain in left hip (principal) ==

== ENCOUNTER → 2023-02-10 | Outpatient (REF) | payer MEDICARE ==
[2023-02-10 17:42] LABS: ALBUMIN 4.2 G/DL (3.2-5.2); ALKALINE PHOSPHATASE 71 U/L (46-116); ALT/SGPT 32 U/L (7.0-40); AST/SGOT 24 U/L (<34); BILIRUBIN,TOTAL 0.4 MG/DL (0.3-1.2); BLOOD UREA NITROGEN 22 MG/DL (9-23); CALCIUM LEVEL 9.6 MG/DL (8.5-10.1); CARBON DIOXIDE LEVEL 31 MMOL/L (20-31); CHLORIDE LEVEL 105 MMOL/L (98-107); CREATININE FOR GFR 0.87 MG/DL (0.55-1.30); GLOMERULAR FILTRATION RATE > 60.0 (>51); GLUCOSE, FASTING 114 MG/DL (60-100); POTASSIUM SERUM 5.1 MMOL/L (3.5-5.1); SODIUM LEVEL 140 MMOL/L (136-145); TOTAL PROTEIN 7.6 G/DL (5.7-8.2)
[2023-02-10 17:52] LABS: HEMOGLOBIN A1c 6.1 % (4.0-6.0)
[2023-02-10 17:55] LABS: CREATININE, URINE 29.9 MG/DL; MAU/CREAT RATIO 43.4 MCG/MG (0.0-30.0)
== END ==
LOC: M SFHCCLAY 10:11
PROVIDERS: ATTEND Nurse Practitioner Family
DX: R00.2 Palpitations (principal); E11.42 Type 2 diabetes mellitus with diabetic polyneuropathy; Z79.891 Long term (current) use of opiate analgesic

== ENCOUNTER → 2023-04-09 | Outpatient (REF) | payer MEDICARE ==
[2023-04-09 12:24] LABS: BASO # 0.1 10^3/uL (0.0-0.2); BASO % 0.9 % (0.0-1.0); EOS # 0.2 10^3/uL (0.0-0.5); EOS % 2.9 % (0.0-3.0); HEMATOCRIT 41.5 % (36.0-47.0); HEMOGLOBIN 13.8 g/dl (12.0-15.5); LYMPH % 26.5 % (24.0-44.0); MEAN CORPUSCULAR HGB CONC 33.3 g/dl (32.0-36.5); MEAN CORPUSCULAR VOLUME 87.2 fl (80.0-96.0); MONO # 0.5 10^3/uL (0.0-0.8); MONO % 6.9 % (2.0-8.0); NEUTROPHILS # 4.7 10^3/uL (1.5-8.5); NEUTROPHILS % 62.5 % (36.0-66.0); PLATELET COUNT, AUTOMATED 171 10^3/uL (150-450); RED BLOOD COUNT 4.76 10^6/uL (4.00-5.40); WHITE BLOOD COUNT 7.6 10^3/uL (4.0-10.0)
[2023-04-09 12:28] LABS: BILIRUBIN,TOTAL 0.4 MG/DL (0.3-1.2); CREATININE FOR GFR 1.27 MG/DL (0.55-1.30); GLOMERULAR FILTRATION RATE 46.7 (>51); POTASSIUM SERUM 4.7 MMOL/L (3.5-5.1); TOTAL PROTEIN 7.1 G/DL (5.7-8.2)
[2023-04-09 12:30] LABS: FREE T4 0.8 NG/DL (0.89-1.76); THYROID STIMULATING HORMONE 2.405 uIU/ML (0.55-4.78)
== END ==
LOC: M SFHCCLAY 08:49
PROVIDERS: ATTEND Nurse Practitioner Family
DX: R22.1 Localized swelling, mass and lump, neck (principal); Z79.899 Other long term (current) drug therapy

== ENCOUNTER → 2023-06-16 | Outpatient (CLI) | payer MEDICARE | LOC: M SOG 07:59 | PROVIDERS: ATTEND Orthopaedic Surgery | DX: M25.561 Pain in right knee (principal); M25.562 Pain in left knee; Z53.9 Procedure and treatment not carried out, unspecified reason ==

== ENCOUNTER → 2023-08-07 | Outpatient (REF) | payer MEDICARE ==
[2023-08-07 18:57] LABS: BASO # 0.1 10^3/uL (0.0-0.2); BASO % 0.8 % (0.0-1.0); EOS # 0.1 10^3/uL (0.0-0.5); EOS % 1.4 % (0.0-3.0); HEMATOCRIT 44.4 % (36.0-47.0); HEMOGLOBIN 14.9 g/dl (12.0-15.5); LYMPH % 20.5 % (24.0-44.0); MEAN CORPUSCULAR HEMOGLOBIN 29.3 pg (27.0-33.0); MEAN CORPUSCULAR HGB CONC 33.6 g/dl (32.0-36.5); MEAN CORPUSCULAR VOLUME 87.2 fl (80.0-96.0); MONO # 0.7 10^3/uL (0.0-0.8); NEUTROPHILS # 6.8 10^3/uL (1.5-8.5); NEUTROPHILS % 69.8 % (36.0-66.0); PLATELET COUNT, AUTOMATED 152 10^3/uL (150-450); RED BLOOD COUNT 5.09 10^6/uL (4.00-5.40); WHITE BLOOD COUNT 9.8 10^3/uL (4.0-10.0)
[2023-08-07 19:09] LABS: ALKALINE PHOSPHATASE 63 U/L (46-116); ALT/SGPT 24 U/L (7.0-40); AST/SGOT 20 U/L (<34); BILIRUBIN,TOTAL 0.5 MG/DL (0.3-1.2); BLOOD UREA NITROGEN 17 MG/DL (9-23); CALCIUM LEVEL 9.3 MG/DL (8.5-10.1); CARBON DIOXIDE LEVEL 29 MMOL/L (20-31); CHLORIDE LEVEL 105 MMOL/L (98-107); CREATININE FOR GFR 1.02 MG/DL (0.55-1.30); GLOMERULAR FILTRATION RATE > 60.0 (>51); GLUCOSE, FASTING 76 MG/DL (60-100); POTASSIUM SERUM 4.4 MMOL/L (3.5-5.1); SODIUM LEVEL 141 MMOL/L (136-145); TOTAL PROTEIN 7.4 G/DL (5.7-8.2)
== END ==
LOC: M SFHCCLAY 11:06
PROVIDERS: ATTEND Nurse Practitioner Family
DX: R93.5 Abnormal findings on diagnostic imaging of other abdominal regions, including retroperitoneum (principal)

== ENCOUNTER → 2023-08-19 | Outpatient (CLI) | payer MEDICARE | LOC: M PLALAB 10:43 | PROVIDERS: ATTEND Obstetrics & Gynecology | DX: Z12.4 Encounter for screening for malignant neoplasm of cervix (principal); N83.8 Other noninflammatory disorders of ovary, fallopian tube and broad ligament ==

== ENCOUNTER → 2023-08-27 | Outpatient (CLI) | payer MEDICARE | LOC: M WHC 13:32 | PROVIDERS: ATTEND Obstetrics & Gynecology | DX: N83.8 Other noninflammatory disorders of ovary, fallopian tube and broad ligament (principal); N83.201 Unspecified ovarian cyst, right side; N83.202 Unspecified ovarian cyst, left side ==

== ENCOUNTER → 2023-11-04 | Outpatient (REF) | payer MEDICARE | LOC: M SFHCWAGY 17:25 | PROVIDERS: ATTEND Obstetrics & Gynecology | DX: R19.00 Intra-abdominal and pelvic swelling, mass and lump, unspecified site (principal) ==

== ENCOUNTER → 2024-04-02 | Outpatient (REF) | payer MEDICARE ==
[~2024-04-02] MED LIST changes: -SENN1TAB41 PO; +SENN1TAB85 PO
[2024-04-02 14:06] LABS: ALBUMIN 4.1 G/DL (3.2-5.2); BILIRUBIN,TOTAL 0.6 MG/DL (0.3-1.2); CALCIUM LEVEL 9.3 MG/DL (8.5-10.1); CHOLESTEROL RISK RATIO 4.7 (<5); CREATININE FOR GFR 1.02 MG/DL (0.55-1.30); GLOMERULAR FILTRATION RATE 59.9 (>51); HDL CHOLESTEROL 38.5 MG/DL (>40); LDL CHOLESTEROL 123.9 MG/DL (<100); NON-HDL-C 142.5 MG/DL; POTASSIUM SERUM 4.2 MMOL/L (3.5-5.1); TOTAL PROTEIN 7.4 G/DL (5.7-8.2)
[2024-04-02 14:07] LABS: HEMOGLOBIN A1c 5.7 % (4.0-6.0)
[2024-04-02 14:08] LABS: FREE T4 1.01 NG/DL (0.89-1.76)
[2024-04-02 14:09] LABS: THYROID STIMULATING HORMONE 1.251 uIU/ML (0.55-4.78)
== END ==
LOC: M SFHCCLAY 08:48
PROVIDERS: ATTEND Nurse Practitioner Family
DX: E11.42 Type 2 diabetes mellitus with diabetic polyneuropathy (principal); R23.2 Flushing; G62.1 Alcoholic polyneuropathy; R91.1 Solitary pulmonary nodule; F17.210 Nicotine dependence, cigarettes, uncomplicated

== ENCOUNTER → 2025-01-12 | Outpatient (CLI) | payer MEDICARE, SELFPAY ==
[2025-01-12 14:59] LABS: BASO # 0.1 10^3/uL (0.0-0.2); BASO % 1.3 % (0.0-1.0); EOS # 0.3 10^3/uL (0.0-0.5); HEMATOCRIT 44.3 % (36.0-47.0); HEMOGLOBIN 14.9 g/dl (12.0-15.5); LYMPH # 2.6 10^3/uL (1.5-5.0); LYMPH % 27.6 % (24.0-44.0); MEAN CORPUSCULAR HGB CONC 33.6 g/dl (32.0-36.5); MEAN CORPUSCULAR VOLUME 86.4 fl (80.0-96.0); MONO # 0.6 10^3/uL (0.0-0.8); MONO % 6.2 % (2.0-8.0); NEUTROPHILS # 5.8 10^3/uL (1.5-8.5); NEUTROPHILS % 61.4 % (36.0-66.0); PLATELET COUNT, AUTOMATED 220 10^3/uL (150-450); RED BLOOD COUNT 5.13 10^6/uL (4.00-5.40); WHITE BLOOD COUNT 9.4 10^3/uL (4.0-10.0)
[2025-01-12 15:18] LABS: FREE T4 1.05 NG/DL (0.89-1.76)
[2025-01-12 15:20] LABS: ALBUMIN 4.1 G/DL (3.2-5.2); ALKALINE PHOSPHATASE 65 U/L (35-104); ALT/SGPT 29 U/L (7.0-40); AST/SGOT 22 U/L (<34); BILIRUBIN,TOTAL 0.4 MG/DL (0.3-1.2); BLOOD UREA NITROGEN 17 MG/DL (9-23); CALCIUM LEVEL 9.1 MG/DL (8.5-10.1); CARBON DIOXIDE LEVEL 28 MMOL/L (20-31); CHLORIDE LEVEL 109 MMOL/L (98-107); CHOLESTEROL LEVEL 197 MG/DL (<200); CHOLESTEROL RISK RATIO 4.46 (<5); CREATININE FOR GFR 0.82 MG/DL (0.55-1.30); GLOMERULAR FILTRATION RATE > 60.0 (>51); GLUCOSE, FASTING 100 MG/DL (60-100); HDL CHOLESTEROL 44.1 MG/DL (>40); LDL CHOLESTEROL 129.9 MG/DL (<100); NON-HDL-C 152.9 MG/DL; POTASSIUM SERUM 4.6 MMOL/L (3.5-5.1); SODIUM LEVEL 141 MMOL/L (136-145); TOTAL PROTEIN 7.7 G/DL (5.7-8.2); TRIGLYCERIDES LEVEL 115 MG/DL (<150)
[2025-01-12 15:21] LABS: THYROID STIMULATING HORMONE 1.205 uIU/ML (0.55-4.78)
[2025-01-12 15:54] LABS: HEMOGLOBIN A1c 5.8 % (4.0-6.0)
== END ==
LOC: M PLALAB 09:51
PROVIDERS: ATTEND Nurse Practitioner Family
DX: K12.2 Cellulitis and abscess of mouth (principal); R19.00 Intra-abdominal and pelvic swelling, mass and lump, unspecified site; E11.42 Type 2 diabetes mellitus with diabetic polyneuropathy; R23.2 Flushing; G62.1 Alcoholic polyneuropathy; R91.1 Solitary pulmonary nodule; F17.210 Nicotine dependence, cigarettes, uncomplicated; K70.30 Alcoholic cirrhosis of liver without ascites; R00.2 Palpitations; K59.00 Constipation, unspecified

== ENCOUNTER → 2025-01-12 | Outpatient (REF) | payer SELFPAY | LOC: M SFHCWAGY 13:10 | PROVIDERS: ATTEND Obstetrics & Gynecology | DX: N83.201 Unspecified ovarian cyst, right side (principal) ==

== ENCOUNTER → 2025-06-01 | Outpatient (CLI) | payer MEDICARE ==
[~2025-06-01] MED LIST changes: +AMIT10TA11 PO; -AMIT10TA7 PO
== END ==
LOC: M OUTALCOH 09:10
PROVIDERS: ATTEND Psychiatry & Neurology Psychiatry
DX: Z03.89 Encounter for observation for other suspected diseases and conditions ruled out (principal); F17.200 Nicotine dependence, unspecified, uncomplicated

== ENCOUNTER → 2025-10-28 | Outpatient (REF) | payer MEDICARE ==
[~2025-10-28] MED LIST changes: -SULF400T14 PO; +SULF400T15 PO
[2025-10-28 17:11] LABS: INR 0.97
[2025-10-28 17:29] LABS: BASO # 0.1 10^3/uL (0.0-0.2); BASO % 1.2 % (0.0-1.0); EOS # 0.2 10^3/uL (0.0-0.5); EOS % 2.8 % (0.0-3.0); LYMPH # 2.2 10^3/uL (1.5-5.0); LYMPH % 28.5 % (24.0-44.0); MONO # 0.7 10^3/uL (0.0-0.8); MONO % 8.5 % (2.0-8.0); NEUTROPHILS # 4.6 10^3/uL (1.5-8.5); NEUTROPHILS % 58.7 % (36.0-66.0); PLATELET COUNT, AUTOMATED 194 10^3/uL (150-450)
[2025-10-28 17:33] LABS: ALT/SGPT 83.0 U/L (7.0-40); AST/SGOT 49.0 U/L (<34); CALCIUM LEVEL 9.4 MG/DL (8.5-10.1); CARBON DIOXIDE LEVEL 35.0 MMOL/L (20-31); CHLORIDE LEVEL 102.0 MMOL/L (98-107); CHOLESTEROL LEVEL 191.0 MG/DL (<200); CHOLESTEROL RISK RATIO 4.66 (<5); CREATININE FOR GFR 0.8 MG/DL (0.55-1.30); GLOMERULAR FILTRATION RATE 85.9 (>51); LDL CHOLESTEROL 125.3 MG/DL (<100); NON-HDL-C 150.1 MG/DL; POTASSIUM SERUM 4.4 MMOL/L (3.5-5.1); SODIUM LEVEL 139.0 MMOL/L (136-145); TRIGLYCERIDES LEVEL 124.0 MG/DL (<150)
[2025-10-28 17:52] LABS: ESTIMATED AVERAGE GLUCOSE 134.0 MG/DL (60-110)
[2025-10-28 17:58] LABS: CREATININE, URINE 27.1 MG/DL; MALB URINE SIEMENS 24.0 MG/L; MAU/CREAT RATIO 88.5 MCG/MG (0.0-30.0)
== END ==
LOC: M SFHCCLAY 10:07
PROVIDERS: ATTEND Nurse Practitioner Family
DX: Z12.31 Encounter for screening mammogram for malignant neoplasm of breast (principal); E11.42 Type 2 diabetes mellitus with diabetic polyneuropathy; G62.1 Alcoholic polyneuropathy; R91.1 Solitary pulmonary nodule; F17.210 Nicotine dependence, cigarettes, uncomplicated; K70.30 Alcoholic cirrhosis of liver without ascites; R00.2 Palpitations; K59.00 Constipation, unspecified; Z79.891 Long term (current) use of opiate analgesic